=== PATIENT | male | born 1960 | race Caucasian/White ===

== ENCOUNTER 2022-04-22 08:34 | Day surgery (SDC) | payer OTHER, SELFPAY ==
[2022-04-22] VITALS (12 sets, daily range): BP systolic 120–154; BP diastolic 76–95; PULSE 51–80; RESP 16; TEMP 36.2–36.8; O2SAT 96–100; BMI 27.8
[2022-04-22] MEDS: SODIUM CHLORIDE 0.9 % (FLUSH) 10 ML SYRINGE IVF (09:15)
[2022-04-22] MEDS: LACTATED RINGERS 1000 ML 1,000 ML 100 ML IV (09:15)
--- NOTE | 2022-04-22 12:09 | W.ANESCHARGE ---
Anesthesia Charges Start Date/Time Anesthesia Start Date: 04/22/22 Anesthesia Start Time: 11:35 Stop Date/Time Anesthesia Stop Date: 04/22/22 Summary Emergency: No
[2022-04-22] MEDS: ROPIVACAINE 0.5% 30 ML 150 MG INJECTION (12:10)
--- NOTE | 2022-04-22 12:16 | PM.ORPRC ---
Procedure Note Date of procedure: 04/22/22 Procedure: PREOPERATIVE DIAGNOSIS: 1. Right knee medial meniscus tear POSTOPERATIVE DIAGNOSIS: 1. Right knee medial meniscus tear 2. 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 Right knee arthroscopic partial medial menisectomy 2. Right knee arthroscopic chondroplasty patellofemoral compartment and medial compartment SURGEON: Dallas Green M.D. REFINERY OPERATOR HELPER [employer]ACKING [employer]IT: ADRIANA Rajan. Of note, an assistant quality manager was critical for this case to aid in patient positioning, knee manipulation, instrument exchange, and closure. ANESTHESIA: Spinal EBL: 2ml TOURNIQUET: 30 min at 300 torr COMPLICATIONS: None evident INDICATIONS: The patient is a pleasant 62-year-old male who has experienced right knee pain particularly with any twisting or turning. Physical exam was concerning for medial meniscus tear, this was confirmed on MRI. Additionally, attempted nonoperative management has been tried, and failed. Thus, surgery was recommended. FINDINGS: Small effusion upon entering the joint. Complex tearing posterior horn to midbody medial meniscus. Crystal deposits seen within the medial meniscus as well as some the ACL fibers anteriorly. Grade 2-3 chondromalacia broadly to the weight-bearing portion medial femoral condyle. Also grade 2-3 chondromalacia superior pole patella and patella median ridge. Grade 1-2 trochlear groove. Lateral compartment showed relatively healthy articular cartilage. Intact lateral meniscus. ACL was lax and striated suggesting insufficiency. PCL was intact robust. DESCRIPTION OF PROCEDURE: After a thorough discussion of risks, benefits, and alternatives, the patient was brought to the operating room and placed upon the operating table. Induction of anesthesia was undertaken as previously noted. 2g iv Ancef was administered within 1 hr of incision preoperatively. Appropriate time-out was performed identifying proper patient, site, and procedure. The right lower extremity was prepped and draped in the appropriate sterile fashion using ChloraPrep. The limb was exsanguinated and tourniquet inflated. Anterolateral and anteromedial portals were established with an 11 blade, and a diagnostic arthroscopy was performed. This identified the findings as noted above. Following the diagnostic arthroscopy, a partial medial menisectomy was performed with the combination of basket forceps and a motorized shaver. Following this, the meniscus was re-probed and found to be stable. Approximately 20 % of the overall meniscus required resection. At this stage, the shaver was reinserted into the suprapatellar pouch and all remaining meniscal debris was evacuated. Instruments were removed, excess fluid was drained, and closure performed with 4-0 Monocryl with Steri-Strips. Dressings were applied, the tourniquet deflated, and the patient was awoken from anesthesia and transferred to the PACU in stable condition. PLAN: 1. Weightbear as tolerated operative extremity. Crutch / walker ambulation assistance PRN. 2. Ice, acetominophen and/or ibuprofen, and Percocet for pain as needed. 3. Knee range of motion and quad sets/straight leg raise regularly 4. Follow up with PA visit in 1-2 weeks for a wound check and possibly to initiate physical therapy.
--- NOTE | 2022-04-22 12:51 | SUR.PHASEI ---
ok to return to SDS at this time per E[employer]ERN PHILOSOPHY PROFESSOR.
== END 2022-04-22 14:15 | disposition home or self-care (01) ==
PROVIDERS: PCP Family Medicine; Visit Provider Orthopaedic Surgery Sports Medicine
PROC: (CPT 29870; principal; 2022-04-22 10:15)
DX: S83.231A Complex tear of medial meniscus, current injury, right knee, initial encounter (principal); M22.41 Chondromalacia patellae, right knee
CPT/HCPCS: 29881; 01400; 97161; J2250; J2400; J2704; J2795; J3010; J7120

== ENCOUNTER 2022-04-29 15:15 | Outpatient (CLI) | payer OTHER, SELFPAY ==
--- OUTSIDE RECORDS SUMMARY | 2022-04-29 15:17 | XMS_ITS | Clinical Summary ---
:1960 Author Organization [facility] [place] [address] Care Team Providers Name Role Phone Rashawn Perez MD Primary Care Provider [phone] Allergies No known active allergies Medications Medication Sig Dispensed Refills Start Date End Date Status inhalational For home use. 1 Each 0 06/24/2021 Ac tive spacing deviceIndications: Cough sildenafil citrate Take 1 Tablet 30 Tablet 5 06/24/2021 Active (VIAGRA) 50 mg (50 mg) by tabletIndications: mouth once Erectile daily if dysfunction of needed for organic origin Erectile Dysfunction. Take 30min to 4 hours before sexual activity. Max 100mg/24hr albuterol HFA Inhale 2 1 Each 0 06/24/2021 Disco ntinued (PRO-AIR; Puffs by 2 (*Med VENTOLIN; mouth 4 times comple te/Regimen PROVENTIL) 90 daily. comple te/Level of mcg/actuation care c joaquina) inhalerIndications : Cough ferrous sulfate, Take one iron 45 Tablet 3 06/26/2021 04/08/20 2 Discontinued 65 mg elemental, tablet every 2 (*Med tabletIndications: other day c omplete/Regimen Anemia due to comple te/Level of vitamin B12 care adam nge) deficiency, unspecified B12 deficiency type Hospital, Clinic, or Ordered Dose Route Frequency Start Date End D ate Status Other Facility Administered Medication cyanocobalamin 1000 mcg IM Q 4 WEEKS (07/23/2021 08/18/2022 Active (VITAMIN B12) 1,000 DAYS) mcg/mL injection 1,000 mcgIndications: Anemia due to vitamin B12 deficiency, unspecified B12 deficiency type Active Problems Problem Noted Date SBO (small bowel obstruction) 10/07/2018 Exertional chest pain 04/13/2018 FH: skin cancer 12/24/2014 Neck pain, chronic 01/09/2012 Snoring 04/18/2010 Iron deficiency anemia, unspecified 08/17/2008 ED (erectile dysfunction) 04/26/2008 ULCERATIVE COLITIS Colostomy 1978 09/20/2006 Abnormal cardiovascular stress test Resolved Problems Problem Noted Date Resolved Date Anemia, unspecified 09/08/2013 10/07/2018 Low vitamin B12 level 06/11/2013 09/08/2013 Skin tag 04/26/2008 03/19/2022 Encounters Date Type Specialty Care Team Description 04/19/2022 Emergency Rikcie Barbour Nonintractab le headache, unspecified chronicity pattern, unspecified headache type (Primary Dx); MD Chantel Viral URI 04/19/2022 Travel 04/08/2022 Preop Visit Tyron Castañeda MD Preopera tive Exam (Right knee scope. 04/22/22 Dr. Triplett. NFLD) 04/08/2022 Travel 03/31/2022 Nurse/Clinic Staff Immunizat ion/Injection Only 03/31/2022 Travel 03/25/2022 Hospital Encounter Carie Resendiz aleyda pain of right knee; MD Marquis Primary osteoar thritis of right knee 03/25/2022 Travel 03/19/2022 Ancillary Procedure 03/19/2022 Ancillary Procedure 03/19/2022 Office Visit Carie Resendiz Knee Pain/ problem MD Marquis (Right. Has had since July. Had th is issue several years a go after a long drive. G ot a pelaton and it started hurting. Aching on the inside of knee. Pain radiates down i nto the calf. Has swell ing and pain with a lot of walking. Is see ing pt currently. ) 03/19/2022 Travel 03/12/2022 Hospital Encounter Yoon Case in [place], 03/12/2022 Office Visit Yoon Case DO 03/12/2022 Travel 02/24/2022 Nurse/Clinic Staff Immunizat ion/Injection Only 02/24/2022 Travel from Last 3 Months Immunizations Name Administration Dates Next Due COVID-19 vaccine (Pfizer-BioNTcheck24 30mcg/0.3mL) PF, , 10/15/2020 BRENDA Family History Medical History Relation Name Comments Valvular heart disease Father due to rh eumatic fever Heart attack No Family History Relation Name Status Comments Father Social History Tobacco Use Types Packs/Day Years Used Date Never Smoker Smokeless Tobacco: Never Used Tobacco Cessation: Counseling Given: Yes Alcohol Use Standard Drinks/Week Comments Yes 0 (1 standard drink = 0.6 oz pure alcoho l) social Sex Assigned at Date Recorded Not on file COVID-19 Exposure Response Date Recorded In the last 10 days, have you been in contact with No / Unsu re 04/19/2022 8:21 PM CDT someone who was confirmed or suspected to have Coronavirus/COVID-19? Obstetrics History Last Filed Vital Signs Vital Sign Reading Time Taken Comments Blood Pressure 125/76 04/19/2022 9:40 PM CDT Pulse 97 04/19/2022 9:40 PM CDT Temperature 36.6 ??C (97.9 ??F) 04/19/2022 8:27 PM CDT Respiratory Rate 18 04/19/2022 9:40 PM CDT Oxygen Saturation 97% 04/19/2022 9:40 PM CDT Inhaled Oxygen Concentration - - Weight 97.5 kg (215 lb) 04/19/2022 8:27 PM CDT Height 185.4 cm (6' 1) 04/19/2022 8:27 PM CDT Body Mass Index 28.37 04/19/2022 8:27 PM CDT Plan of Treatment Upcoming Encounters Date Type Specialty Care Team Description 05/04/2022 Nurse/Clinic Staff Only Health Maintenance Due Date Last Done Comments Tdap 1969 Zoster (shingles) series for age 0701/25/2008 50+ (1 of 2) Tetanus booster 05/22/2021 05/22/2011 (Declined), 04/18/2010 (Declined) COVID-19 vaccine series (4 - 08/03/2021 06/08/2021, 021, Booster for Pfizer series) 10/15/2020 Influenza for age 50-64 03/19/2022 05/22/2011 (Declined), 04/18/2010 (Declined) BMI (ht and wt on same day) for 06/24/2022 06/24/2021, 08/19, age 18+ 08/14/2019, Additional history exists Depression screening for age 12+ 06/24/2022 06/24/2021, , 10/10/2018, Additional history exists Lipids for age 45-75 03/31/2023 03/31/2018, 12/24/2014, 02/13/2013, Additional history exists Hepatitis C screening for age Completed 12/24/2014 18-79 Procedures Procedure Name Priority Date/Time Associated Diagnosis Comme nts COVID 19 STAT 04/19/2022 9:05 PM Results f or this CDT procedure are i n the results section. COVID 19 COLLECTION STAT 04/19/2022 9:05 PM Re sults for this CDT procedure are i n the results section. MA ECG ROUTINE ECG Routine 04/08/2022 12:00 Preoperative W/LEAST 12 LDS AM CDT cardiovascular W/I&R examination MR KNEE RIGHT WO Routine 03/25/2022 8:49 AM Chronic pain of ri ght Results for this CDT knee procedure are in Primary osteoarthritis the r esults of right knee section. XR KNEE WB 1 VIEW Routine 03/19/2022 9:47 AM Chronic pain of r ight Results for this AP BILATERAL AND 2 CDT knee procedure are in VIEWS RIGHT the results section. XR HIP 1 VIEW W Routine 03/19/2022 9:46 AM Chronic pain of rig ht Results for this PELVIS RIGHT CDT knee procedure are i n the results section. CT ABDOMEN PELVIS Routine 03/12/2022 2:19 PM Flank pain Resu lts for this STONE PROTOCOL WO CDT procedure are in the results section. UA W/ SEDIMENT EXAM STAT 03/12/2022 1:35 PM Flank pain Re sults for this REFLEXED PER CDT procedure are i n CRITERIA the results section. from Last 3 Months Results COVID 19 (04/19/2022 9:05 PM CDT) Analysis Performed At [facility] Time Signature COVID 19 Negative Negative 04/19/2022 [place] [facility] 11:35 PM CDT [facility] Comment: All PCR tests are subject to fa lse negative result due to variability in viral load and collection technique. A n egative result does not rule out a SARS-CoV-2 infection. Clinical correlation required . Specimen Anatomical Collection Method Collection Time Receive d Time (Source) Location / / Volume Laterality Other SPECIMEN FROM Non-Blood / 04/19/2022 9:05 PM 04/19/20 22 9:11 NASAL FOSSAE / Unknown CDT PM CDT Unknown Narrative [facility] - 11:35 PM CDT This test has been authorized by FDA und er an Emergency Use Authorization (EUA). This test is only authorized for the duration of time the declaration that circumstances exist justifying the authorization of th e emergency use of in vitro diagnostic tests for detection of SARS-CoV-2 virus and/or diagnosis of COVID-19 infection under section 564(b)(1) of the Act, 21 U.S.C. 360bbb-3(b) (1), unless the authorization is terminated or revoked sooner. Rickie Barbour MD MICROBIOLOGY Performing Organization Address [facility]/ZIP [facility] Phon e Number [facility] [address] [place] [address] COVID 19 COLLECTION (04/19/2022 9:05 PM CDT) [facility] Method Time Signature TESTING [facility] 04/19/2022 [facility] 9:11 PM CDT [facility] Comment: Specimen submitted to [facility] for testing. Specimen Anatomical Collection Method Collection Time Receive d Time (Source) Location / / Volume Laterality Other SPECIMEN FROM Non-Blood / 04/19/2022 9:05 PM 04/19/20 22 9:10 NASAL FOSSAE / Unknown CDT PM CDT Unknown Rickie Barbour MD SEND OUTS Performing Organization Address [facility]/ZIP [facility] Phon e Number [facility] [address] [place] [address] MA ECG ROUTINE ECG W/LEAST 12 LDS W/I&R (04/08/2022 12:00 AM CDT) Narrative This result has an attachment that is no t available. Tyron Castañeda MD PB - CARDIOVASCULAR SYSTEM S ERVICES MR KNEE RIGHT WO (03/25/2022 8:49 AM CDT) Anatomical Region Laterality Modality KNEE R Magnetic Resonance Specimen (Source) Anatomical Collection Method Collection Time Re ceived Time Location / / Volume Laterality 03/25/2022 11:27 AM CDT Impressions 03/25/2022 11:27 AM CDT 1. Medial meniscus tear. 2. Grade 3 partial-thickness chondral de fect on the lateral aspect of the weight-bearing medial femoral condyle measuring 9 x 10 mm. 3. Mild proximal patellar tendinosis. Dictated by Stuart Torres MD @ 03/25/2022 1 1:27:23 AM (Electronically Signed) Narrative 03/25/2022 11:27 AM CDT For Patients: ??As a result of the [employer] Cures Act, medical imaging exams and procedure report s are released immediately into your [facility] medical record. ??You may view this report before your referring provider. ??If you have questions, please contact your health care provider. HISTORY: Chronic right knee pain. TECHNIQUE: Axial, sagittal and coronal T1, proton d ensity, proton density fat-sat and T2 fat-sat images were obtained of the right knee without contrast administration. COMPARISON: 03/19/2022. FINDINGS: Medial compartment: Medial meniscus: Longitudinal tear possi manolo with horizontal component in medial meniscus body. Articular cartilage: Grade 3 partial-thi ckness cartilage loss along the lateral aspect of the weight-bearing medial femoral condyle measuring 9 x 10 mm. Minimal subchondral bone marrow edema in peripheral aspect of the medial tibial plateau. - Lateral compartment: Lateral meniscus: Intact. Articular cartilage: Intact without evid ence of focal defect or chondral thinning. - Patellofemoral compartment: Articular ca rtilage intact without evidence of focal defect or chondral thinning. - Ligaments: The anterior and posterior cr uciate ligaments are intact. Medial collateral ligament and lateral ligamentous complex are maintained. - Extensor mechanism: Distal quadriceps te ndon and patellar tendon are intact. Mild proximal patellar tendinosis. The medial and lateral patellar restraints are intact. No patellar subluxation or geeta. - Joint space: No joint effusion. - Bones and soft tissues: No acute fractur e or AVN. No evidence of infiltrative bone marrow process. No loculated fluid collection or soft tissue mass. - Procedure Note Stuart Torres MD - 03/25/2022Form atting of this note might be different from the original. For Patients: As a result of the [employer]ury Cures Act, medical imaging exams and procedure reports are released immediately into your electronic medical record. You may view this report before your referring provider. If you have questions, please contact yo health care provider. HISTORY: Chronic right knee pain. TECHNIQUE: Axial, sagittal and coronal T1, proton d ensity, proton density fat-sat and T2 fat-sat images were obtained of the right knee without contrast administration. COMPARISON: 03/19/2022. FINDINGS: Medial compartment: Medial meniscus: Longitudinal tear possi manolo with horizontal component in medial meniscus body. Articular cartilage: Grade 3 partial-thi ckness cartilage loss along the lateral aspect of the weight-bearing medial femoral condyle measuring 9 x 10 mm. Minimal subchondral bone marrow edema in peripheral aspect of the medial tibial plateau. - Lateral compartment: Lateral meniscus: Intact. Articular cartilage: Intact without evid ence of focal defect or chondral thinning. - Patellofemoral compartment: Articular ca rtilage intact without evidence of focal defect or chondral thinning. - Ligaments: The anterior and posterior cr uciate ligaments are intact. Medial collateral ligament and lateral ligamentous complex are maintained. - Extensor mechanism: Distal quadriceps te ndon and patellar tendon are intact. Mild proximal patellar tendinosis. The medial and lateral patellar restraints are intact. No patellar subluxation or geeta. - Joint space: No joint effusion. - Bones and soft tissues: No acute fractur e or AVN. No evidence of infiltrative bone marrow process. No loculated fluid collection or soft tissue mass. - IMPRESSION: 1. Medial meniscus tear. 2. Grade 3 partial-thickness chondral de fect on the lateral aspect of the weight-bearing medial femoral condyle measuring 9 x 10 mm. 3. Mild proximal patellar tendinosis. Dictated by Stuart Torres MD @ 03/25/2022 1 1:27:23 AM (Electronically Signed) Carie Resendiz MD MR XR KNEE WB 1 VIEW AP BILATERAL AND 2 VIEWS RIGHT (03/19/2022 9:47 AM CDT) Anatomical Region Laterality Modality KNEES, KNEE R Computed Radiography Specimen (Source) Anatomical Collection Method Collection Time Re ceived Time Location / / Volume Laterality 03/19/2022 9:47 AM CDT Impressions 03/19/2022 9:59 AM CDT RIGHT KNEE: No fracture or dislocation. Mild degenerative change of the tricompartments with joint space narrowing. No joint effusion.] Mild chondrocalcinosis. LEFT KNEE: No fracture. Mild degenerativ e change of left knee. Narrative 03/19/2022 9:59 AM CDT For Patients: As a result of the Cures Act, medical imaging exams and procedure reports are released immediately into your [facility] medical record. You may view this report before your referring provider. If you have questions, please contact your health care provider. EXAM: XR KNEE WB 1 VIEW AP BILATERAL AND 2 VIEWS RIGHT LOCATION: [facility] DATE/TIME: 03/19/2022 9:47 AM INDICATION: Chronic Pain Of Right Knee COMPARISON: None. Procedure Note Isaias Buckner MD - 03/19/2022Formattin g of this note might be different from the original. For Patients: As a result of the Cures Act, medical imaging exams and procedure reports are released immediately into your electronic medical record. You may view this report before your referring provider. If you have questions, please contact [facility] health care provider. EXAM: XR KNEE WB 1 VIEW AP BILATERAL AND 2 VIEWS RIGHT LOCATION: [facility] DATE/TIME: 03/19/2022 9:47 AM INDICATION: Chronic Pain Of Right Knee COMPARISON: None. IMPRESSION: RIGHT KNEE: No fracture or dislocation. Mild degenerative change of the tricompartments with joint space narrowing. No joint effusion.] Mild chondrocalcinosis. LEFT KNEE: No fracture. Mild degenerativ e change of left knee. Carie Resendiz MD GENERAL IMAGING XR HIP 1 VIEW W PELVIS RIGHT (03/19/2022 9:46 AM CDT) Anatomical Region Laterality Modality HIPS, HIPR, Pelvis Computed Radiography Specimen (Source) Anatomical Collection Method Collection Time Re ceived Time Location / / Volume Laterality 03/19/2022 9:46 AM CDT Impressions 03/19/2022 10:00 AM CDT No fracture or dislocation. Mild degener ative change of bilateral hips. Narrative 03/19/2022 10:00 AM CDT For Patients: As a result of the Cures Act, medical imaging exams and procedure reports are released immediately into your [facility] medical record. You may view this report before your referring provider. If you have questions, please contact your health care provider. EXAM: XR HIP 1 VIEW W PELVIS RIGHT LOCATION: [facility] DATE/TIME: 03/19/2022 9:46 AM INDICATION: Chronic Pain Of Right Knee COMPARISON: None. Procedure Note Isaias Buckner MD - 03/19/2022Formattin g of this note might be different from the original. For Patients: As a result of the Cures Act, medical imaging exams and procedure reports are released immediately into your electronic medical record. You may view this report before your referring provider. If you have questions, please contact [facility] health care provider. EXAM: XR HIP 1 VIEW W PELVIS RIGHT LOCATION: [facility] DATE/TIME: 03/19/2022 9:46 AM INDICATION: Chronic Pain Of Right Knee COMPARISON: None. IMPRESSION: No fracture or dislocation. Mild degener ative change of bilateral hips. Carie Resendiz MD GENERAL IMAGING CT ABDOMEN PELVIS STONE PROTOCOL WO (03/12/2022 2:19 PM CDT) Anatomical Region Laterality Modality Abdomen, Pelvis, AORTA, LIVER, SPLEEN Co mputed Tomography Specimen (Source) Anatomical Collection Method Collection Time Re ceived Time Location / / Volume Laterality 03/12/2022 3:19 PM CDT Impressions 03/12/2022 3:19 PM CDT 1. Unremarkable kidneys ureters and bladder no calculi or hydronephrosis. 2. Proctocolectomy 3. No additional new or acute radiograph ic imaging abnormalities. Please note that all CT scans at this [facility] use dose modulation, iterative reconstruction, and/or weight-based dosing when appropriate to reduce radiation dose to as low as reasonably achievable. Dictated by Ignacio Carrington MD @ 03/12/2022 3:19:31 PM (Electronically Signed) Narrative 03/12/2022 3:19 PM CDT For Patients: ??As a result of the Cures Act, medical imaging exams and procedure report s are released immediately into your [facility] medical record. ??You may view this report before your referring provider. ??If you have questions, please contact your health care provider. INDICATION : Flank pain TECHNIQUE : CT Scan of the abdomen and pelvis. No intravenous contrast COMPARISON : 10/07/2018 FINDINGS: Kidneys ureters and bladder: The kidneys are normal size shape and po sition. The urinary bladder appears normal. No c alculi. Prostate: Enlarged. Lymph nodes: No pathologic enlargement. GI tract: Proctocolectomy and a pelvic r eservoir with ostomy right lower quadrant. No signs for obstruction. Miscellaneous abdomen: Unremarkable live r spleen adrenal glands pancreas. No calcified gallstones or suspicious lymph node enlargement. Lung bases: Clear. Skeletal: Moderate lumbar disc degenerat ion L4-L5 and L5-S1. Procedure Note Ignacio Carrington MD - 03/12/2022For matting of this note might be different from the original. For Patients: As a result of the ntury Cures Act, medical imaging exams and procedure reports are released immediately into your electronic medical record. You may view this report before your referring provider. If you have questions, please contact [facility] health care provider. INDICATION : Flank pain TECHNIQUE : CT Scan of the abdomen and pelvis. No intravenous contrast COMPARISON : 10/07/2018 FINDINGS: Kidneys ureters and bladder: The kidneys are normal size shape and po sition. The urinary bladder appears normal. No c alculi. Prostate: Enlarged. Lymph nodes: No pathologic enlargement. GI tract: Proctocolectomy and a pelvic r eservoir with ostomy right lower quadrant. No signs for obstruction. Miscellaneous abdomen: Unremarkable live r spleen adrenal glands pancreas. No calcified gallstones or suspicious lymph node enlargement. Lung bases: Clear. Skeletal: Moderate lumbar disc degenerat ion L4-L5 and L5-S1. IMPRESSION: 1. Unremarkable kidneys ureters and [place] no calculi or hydronephrosis. 2. Proctocolectomy 3. No additional new or acute radiograph ic imaging abnormalities. Please note that all CT scans at this [facility] use dose modulation, iterative reconstruction, and/or weight-based dosing when appropriate to reduce radiation dose to as low as reasonably achievable. Dictated by Ignacio Carrington MD @ 03/12/2022 3:19:31 PM (Electronically Signed) Yoon Case DO CT (ABNORMAL) UA W/ SEDIMENT EXAM REFLEXED PER CRITERIA (UA w/ reflex micro if positive) [26732.2] (03/12/2022 1:35 PM CDT) [facility] Method Time Signature COLOR Yellow Yellow Color 03/12/2022 [place] 1:[address] [facility] CLARITY Clear Clear 03/12/2022 [facility] Clarity 1:[address] [facility] SPECIFIC >=1.030 (A) 1.010, 03/12/2022 [facility] GRAVITY,URINE 1.015, 1:46 PM [facility] 1.020, 1.025 [facility] PH,URINE 5.5 6.0, 7.0, 03/12/2022 [place] 8.0, 5.5, 1:46 PM [facility] 6.5, 7.5, CENTER 8.5 LABORATORY UROBILINOGEN, Normal Normal EU/dl 03/12/2022 [facility] QUALITATIVE 1:[address] [facility] PROTEIN, Negative Negative 03/12/2022 [facility] URINE mg/dL 1:[address] [facility] GLUCOSE, Negative Negative 03/12/2022 [facility] URINE mg/dL 1:[address] [facility] KETONES,URINE Negative Negative 03/12/2022 [facility] mg/dL 1:[address] [facility] BILIRUBIN,URI Negative Negative 03/12/2022 [facility] NE 1:[address] [facility] OCCULT Negative Negative 03/12/2022 [facility] BLOOD,URINE 1:[address] [facility] NITRITE Negative Negative 03/12/2022 [facility] 1:[address] [facility] LEUKOCYTE Negative Negative 03/12/2022 [facility] ESTERASE 1:[address] [facility] Specimen Anatomical Collection Method Collection Time Receive d Time (Source) Location / / Volume Laterality Urine URINE SPECIMEN / Non-Blood / 03/12/2022 1:35 PM 03/12 1:40 Unknown Unknown CDT [facility] Karlene Zelaya NP URINE Performing Organization Address City/State/ZIP Code Phon e Number [facility] [address] [place] [address] from Last 3 Months Insurance Payer Benefit Plan / Subscriber ID Effective Dates Phone Addre ss Type Group PREFERRED ONE PREFERRED ONE [id number] 2021-[place] [id number] [place] [id number] Advance Directives Latest Code Status on File Code Status Date Activated Date Inactivated Comments Full Code 10/07/2018 5:25 PM 10/09/2018 2:38 PM Full Code 04/13/2018 7:47 AM 04/13/2018 3:26 PM Care Teams [employer] Relationship Specialty Start Date End Date Rashawn Perez MD PCP - General Family Practice 10/07/[address] [place] [address] [place] [id number]
--- NOTE | 2022-04-29 16:00 | CRLHL7_ITS ---
For Patients: As a result of the [employer] Cures Act, medical imaging exams and procedure reports are released immediately into your electronic medical record. You may view this report before your referring provider. If you have questions, please contact your health care provider. INDICATION: Right knee swelling and calf pain. Status post right knee arthroscopy on 04/22/2022. COMPARISON: None. TECHNIQUE: A compression venous ultrasound exam was performed of the right lower extremity using cano-scale imaging, color Doppler and spectral Doppler analysis. FINDINGS: Sonographic imaging of the right lower extremity demonstrates normal compressibility and color Doppler venous blood flow within the common femoral vein, deep femoral vein, and the proximal greater saphenous vein. Within the thigh, the femoral vein is patent and compressible. At a lower level, the popliteal, peroneal, and posterior tibial veins also show normal compressibility and color Doppler venous blood flow. Limited imaging of the contralateral groin demonstrates a normal spectral waveform and color Doppler venous blood flow within the left common femoral vein. IMPRESSION: Negative for acute DVT in the right lower extremity. Dictated by Dariela Parks MD @ 04/29/2022 4:55:42 PM (Electronically Signed)
== END 2022-04-29 15:16 | disposition home or self-care (01) ==
PROVIDERS: PCP Family Medicine; Visit Provider Physician Assistant Surgical
DX: M79.661 Pain in right lower leg (principal); R22.41 Localized swelling, mass and lump, right lower limb
CPT/HCPCS: 93971

== ENCOUNTER 2023-08-23 08:57 | Inpatient (IN) | payer OTHER, SELFPAY ==
[2023-08-23] VITALS (25 sets, daily range): BP systolic 92–119; BP diastolic 61–86; PULSE 90–124; RESP 14–20; TEMP 36.7–38.6; O2SAT 89–99; BMI 28.6; BMI 27.1
--- OUTSIDE RECORDS SUMMARY | 2023-08-23 09:53 | XMS_ITS | Clinical Summary ---
Author Name Unknown Organization [facility] Address [place], [place] [address] Care Team Providers Care Climatologist Name Role Phone Keven Odom MD Primary Care Provider Allergies No known active allergies Medications Medication Sig Dispensed Refills Start Date End Date Status sildenafil citrate (VIAGRA) 50 mg tabletIndications:E rectile dysfunction of organic origin Take 1 Tablet (50 mg) by mouth once daily if needed for Erectile Dysfunction. Take 30min to 4 hours before sexual activity. Max 100mg/24hr 30 Tablet 5 10/01/2022 Active levalbuterol (XOPENEX HFA) 45 mcg/actuation inhalerIndications: Cough, unspecified type Inhale 2 Puffs by mouth every 4 hours if needed for Shortness Of Breath. 15 g 0 03/01/2023 Active cholecalciferol, vitamin D3, (VITAMIN D3 ORAL) Take 1 Tablet by mouth once daily. 0 Active diclofenac topical (VOLTAREN) 1 % gelIndications:Neck pain, chronic Apply 2 g topically to affected area(s) four times daily. 2 g 0 08/08/2023 Active famotidine (PEPCID) 40 mg tabletIndications:D OE (dyspnea on exertion),Chest tightness Take 1 Tablet (40 mg) by mouth at bedtime. 30 Tablet 1 08/16/2023 Active ciprofloxacin HCl (CIPRO) 500 mg tabletIndications:P ouchitis (HC) Take 1 Tablet (500 mg) by mouth two times daily for 10 days. 20 Tablet 0 08/11/2023 08/21/2023 metroNIDAZOLE (FLAGYL) 500 mg tabletIndications:P ouchitis (HC) Take 1 Tablet (500 mg) by mouth two times daily for 10 days. 20 Tablet 0 08/11/2023 08/21/2023 Hospital, Clinic, or Other Facility Administered Medication Ordered Dose Route Frequency Start Date End Date Status cyanocobalamin (VITAMIN B12) 1,000 mcg/mL injection 1,000 mcgIndications:Anemi a due to vitamin B12 deficiency, unspecified B12 deficiency type 1000 mcg IM Q 4 WEEKS (28 DAYS) 08/27/2022 08/25/2023 Active Active Problems Problem Noted Date Diagnosed Date Bloody stool 08/07/2023 Diarrhea 08/07/2023 SBO (small bowel obstruction) 10/07/2018 Exertional chest pain 04/13/2018 FH: skin cancer 12/24/2014 Neck pain, chronic 01/09/2012 Snoring 04/18/2010 Iron deficiency anemia, unspecified 08/17/2008 ED (erectile dysfunction) 04/26/2008 ULCERATIVE COLITIS Colostomy 1978 09/20/2006 Abnormal cardiovascular stress test Resolved Problems Problem Noted Date Diagnosed Date Resolved Date Anemia, unspecified 09/08/2013 10/08/19 19 Low vitamin B12 level 06/11/20132013 Skin tag 04/26/2008 03/19/2022 Encounters Date Type Department Care Team Description 08/19/2023 Telephone [facility] [address] [place] [address] Keven Odom MD 08/19/2023 Telephone [facility] [address] [place] [address] Keven Odom MD 08/16/2023 1:22 PM [employer] - 08/16/2023 11:59 PM [employer] Hospital Encounter [facility] [address] [place] [address] Keven Odom MD GAN (dyspnea on exertion); Chest tightness 08/16/2023 10:10 AM TE[employer]NIC[employer] Telemedicine [facility] [address] [place] [address] Keven Odom MD Hospital F/U 08/16/2023 Travel 08/15/2023 Travel 08/11/2023 3:52 AM [employer] - 08/11/2023 8:12 AM [employer] Emergency [facility] [address] [place] [address] Al Lai MD Pouchitis (HC) (Primary Dx); Abdominal pain, unspecified abdominal location; Ulcerative colitis with complication, unspecified location (HC); Diarrhea, unspecified type; KIM (acute kidney injury) (HC) Discharge Disposition: Home Self Care 08/11/2023 Travel 08/09/2023 Patient Outreach [address] [address] Hafsa Ramirez RN Primary RN Care Management (SBO); Hospital F/U (08/08/2023) 08/06/2023 7:08 PM [employer]NIC[employer] - 08/08/2023 4:40 PM [employer]NIC[employer] Hospital Encounter [facility] [address] [place] [address] Aristides Garza PA Connelly, MD Marilee Daniels Jennifer Rose F, MD Bhattarai, Jaya, XUAN Zaldivar, Anna Arias, Hansa Sheikh NP Partial small bowel obstruction (HC) (Primary Dx); Nausea and vomiting, unspecified vomiting type; Near syncope; Disorder of stoma; Cough, unspecified type; Elevated C-reactive protein (CRP); Occult blood positive stool; SBO (small bowel obstruction) (HC); Neck pain, chronic Discharge Disposition: Home Self Care 08/06/2023 Travel 08/03/2023 5:10 PM [employer] Ancillary Procedure [address] [phone] 08/03/2023 Travel 08/01/2023 3:15 PM [employer] Office Visit [facility] [address] [place] [phone] Adriana Fernandes NP Cough (Patient presents to urgent care today C/O coughing onset 07/29/2023. Took a home COVID-19 test at 1200 noon today that turned out negative. ); Stomach Ache (C/O having a blotting feeling in his abdomin.); Tired 08/01/2023 Travel 07/20/2023 Telephone [facility] [address] [facility] [place] [address] Keven Odom MD Results 07/06/2023 8:15 AM [employer] Nurse/Clinic Staff Only [address] [address] Injection (Medication) (B12) 07/06/2023 Travel 07/02/2023 7:19 AM TE[employer] - 07/02/2023 11:59 PM [employer] Hospital Encounter [facility] [address] [place] [address] Keven Odom MD GAN (dyspnea on exertion) 07/02/2023 Travel 06/30/2023 Telephone [facility] [address] [place] [address] Nusrat oNel RN Appointment Reminder 06/15/2023 10:44 AM [employer] - 06/15/2023 1:02 PM [employer] Emergency [facility] [address] [place] [address] Rickie Barbour MD Vasovagal episode (Primary Dx) Discharge Disposition: Home Self Care 06/15/2023 10:00 AM [employer] - 06/15/2023 10:43 AM TE[employer]NIC[employer] Hospital Encounter [facility] [address] [place] [address] Keven Odom MD Chest tightness; GAN (dyspnea on exertion) 06/15/2023 Travel 06/08/2023 8:15 AM [employer] Nurse/Clinic Staff Only [address] [place] [address] Immunization/Injec tion (Vitamin B12, Chris) 06/08/2023 Travel 05/28/2023 10:55 AM TECHNIC[employer] Ancillary Procedure [address] [address] 05/28/2023 10:10 AM TE[employer]NIC[employer] Office Visit [facility] [address] [place] [address] Keven Odom MD chest tightness with exertion 05/28/2023 Nurse Triage [facility] [address] [place] [address] Keven Odom MD Chest Pain/problem 05/28/2023 Travel from Last 3 Months Immunizations Name Administration Dates Next Due COVID-19 vaccine ([employer] 30mcg/0.3mL) MD JUAN RV 06/08/2021,11/05/2020,10/15/2020 Family History Medical History Relation Name Comments Valvular heart disease Father due t o rheumatic fever Heart attack No Family History Relation Name Status Comments Father Social History Tobacco Use Types Packs/Day Years Used Date Smoking Tobacco: Never Smokeless Tobacco: Never Tobacco Cessation:Counseling Given: Yes Alcohol Use Standard Drinks/Week Comments Yes 0 (1 standard drink = 0.6 oz pur e alcohol) social PHQ-2 Answer Date Recorded PHQ-2 TOTAL SCORE 0 10/01/2022 Social Connections Answer Date Recorded Frequency of Communication with Friends and Fami ly 0 05/28/2023 Financial Resource Strain Answer Date R ecorded Difficulty of Paying Living Expenses 3 05/28/2023 Difficulty of Paying Living Expenses Not on file 05/28/2023 Food Insecurity Answer Date Recorded Worried About Running Out of Food in the Last Ye ar 1 05/28/2023 Transportation Needs Answer Date Record ed Lack of Transportation (Medical) 1 05/28/2023 Housing Stability Answer Date Recorded Unable to Pay for Housing in the Last Year 1 05/28/2023 Sex and Gender Information Value Date Recorded Sex Assigned at Not on file Gender Identity Not on file Sexual Orientation Not on file Obstetrics History Last Filed Vital Signs Vital Sign Reading Time Taken Comments Blood Pressure 116/79 08/11/2023 8:00 AM TE[employer]IC[employer] Pulse 94 08/11/2023 8:08 AM [employer] Temperature 36.7 ??C (98 ??F) 08/11/2023 3:53 AM [employer] Respiratory Rate 18 08/11/2023 3:53 AM [employer] Oxygen Saturation 97% 08/11/2023 8:08 AM TE[employer]NIC[employer] Inhaled Oxygen Concentration - - Weight 95.5 kg (210 lb 8.6 oz) 08/11/2023 3:53 A M [employer] Height 185.4 cm (6' 1) 08/11/2023 4:05 AM [employer] Body Mass Index 27.78 08/11/2023 3:53 AM [employer] Plan of Treatment Upcoming Encounters Date Type Department Care Team (Late st Contact Info) Description 09/13/2023 3:00 PM TE[employer] Office Visit [facility] [address] [place] [address] Marsha Hernández MD [address] [place] [address] Health Maintenance Due Date Last Done Comments Pneumococcal series for age 65+ (1 of 2 - PCV) 01/25/1964 Tdap 1969 HIV for age 15-65 1973 Zoster (shingles) series for age 50+ (1 of 2) 01/25/2008 Tetanus booster 05/22/2021 05/22/2011 (Decl ined), 04/18/2010 (Declined) COVID-19 vaccine series (2022- season) 2023 05/28/2022, 06/08/2021, 11/05/2020, Additional history exists Influenza for age 65+ 03/19/2023 BMI (ht and wt on same day) for age 18+ 10/02/2023 10/01/2022, 06/24/2021, 08/31/2019, Additional history exists Depression screening for age 12+ 10/02/2023 10/01/2022, 06/24/2021, 10/14/2018, Additional history exists Lipids for age 45-75 10/02/2027 10/01/2022, 03/31/2018, 12/24/2014, Additional history exists Hepatitis C screening for ag e 18-79 Completed 12/24/2014 Procedures Procedure Name Priority Date/Time Associated Diagnosis Comments CT CHEST PE STUDY STAT 08/16/2023 1:2 7 PM TE[employer] GAN (dyspnea on exertion) Chest tightness STOOL PATHOGEN MULTIPLEX PCR PANEL STAT 08/11/2023 5:34 AM TECHNICIAN [employer] ISTAT CHEM 8 CLINIC ONLY AND [facility] Timed 08/11/2023 5:27 AM TE[employer]NIC[employer] RED CELL MORPHOLOGY STAT 08/11/2023 5 :16 AM [employer]NIC[employer] PLATELET ESTIMATE STAT 08/11/2023 5:1 6 AM [employer] MANUAL DIFFERENTIAL STAT 08/11/2023 5 :16 AM [employer] CBC WITH AUTO DIFFERENTIAL STAT 08/11/2023 5:16 AM TE[employer] LIPASE STAT 08/11/2023 5:16 AM [employer] HEPATIC FUNCTION PANEL STAT 5:16 AM TECHNIC[employer] CBC WITH AUTO DIFFERENTIAL STAT 08/11/2023 5:[address] [employer] [address] ABDOMEN PELVIS W STAT 08/11/2023 5 :04 AM TE[employer]NIC[employer] SCAN-CARDIAC STRIP 08/08/2023 8: 18 AM [employer] HEMOGLOBIN Early AM 08/08/2023 5:52 AM TE[employer] XR SMALL BOWEL WATER SOLUBLE STAT 08/07/2023 5:39 PM TE[employer]NIC[employer] HEMOGLOBIN Timed 08/07/2023 12:34 PM TECHNIC[employer] SCAN-CARDIAC STRIP 08/07/2023 8: 30 AM TECHNIC[employer] FOLIC ACID Timed 08/07/2023 6:03 AM TE[employer] HEMOGLOBIN Timed 08/07/2023 6:03 AM TE[employer]NIC[employer] CREATININE Early AM 08/07/2023 6:03 AM TE[employer] SODIUM Early AM 08/07/2023 6:03 AM TECHNIC[employer] SCAN-CARDIAC STRIP 08/07/2023 2: 15 AM TECHNICIAN [employer] CLOSTRIDIOIDES DIFFICILE TOXIN PCR Today 08/07/2023 1:45 AM TECHNICIAN [employer] HEMOGLOBIN Timed 08/07/2023 1:05 AM TECHNIC[employer] XR ABDOMEN 1 VIEW PORTABLE STAT 08/06/2023 11:59 PM TECHNIC[employer] HEMOGLOBIN STAT 08/06/2023 11:24 PM TE[employer] COVID/FLU/RSV PANEL Today 08/06/2023 1 1:10 PM TECHNIC[employer] BLOOD CULTURE Today 08/06/2023 10:29 PM TECHNIC[employer] BLOOD CULTURE Today 08/06/2023 10:22 PM [employer] VITAMIN B12 MARGOT 08/06/2023 9:46 PM [employer] TROPONIN T (HS) ONE TIME Timed 08/06/2023 9:46 PM TECHNIC[employer] XR CHEST 1 VIEW PORTABLE STAT 08/06/2023 9:01 PM [employer] OCCULT BLOOD IFOBT STOOL Today 08/06/2023 8:[address] [employer] [address] ABDOMEN PELVIS W STAT 08/06/2023 8 :35 PM TE[employer] EKG 12 LEAD STAT 08/06/2023 7:53 PM [employer] TYPE & SCREEN STAT 08/06/2023 7:38 PM TECHNIC[employer] RED CELL MORPHOLOGY STAT 08/06/2023 7 :38 PM [employer] PLATELET ESTIMATE STAT 08/06/2023 7:3 8 PM [employer]CHN[employer] MANUAL DIFFERENTIAL STAT 08/06/2023 7 :38 PM TECHNIC[employer] MAGNESIUM MARGOT 08/06/2023 7:38 PM TECHNIC[employer] TROPONIN T (HS) ACUTE W/2HR REFLEX MARGOT 08/06/2023 7:38 PM [employer] C-REACTIVE PROTEIN STAT 08/06/2023 7: 38 PM [employer] CBC WITH AUTO DIFFERENTIAL STAT 08/06/2023 7:38 PM TECHN[employer] PROTIME-INR STAT 08/06/2023 7:38 PM TECHNIC[employer] BASIC METABOLIC PANEL STAT 08/06/2023 7:38 PM TECHNIC[employer] CBC WITH AUTO DIFFERENTIAL STAT 08/06/2023 7:38 PM TECHN[employer] XR CHEST 2 VIEWS PA AND LATERAL STAT 08/03/2023 5:04 PM [employer] Chest congestion COVID-19 MOLECULAR STAT 08/01/2023 4: 10 PM TE[employer] Upper respiratory tract infection, unspecified type ECHO STRESS EXRCSE W CNTRST W COLOR W LTD DOPPLER Routine 07/02/2023 1:57 PM TECHNICIAN [employer] GAN (dyspnea on exertion) STRESS TEST EXERCISE DONE WITH STRESS ECHO Routine 07/02/2023 9:07 AM TECHNICIAN [employer] GAN (dyspnea on exertion) SCAN-STRESS TEST 07/02/2023 12:0 0 AM TECHNICIAN [employer] EKG 12 LEAD STAT 06/15/2023 12:09 PM TECHNIC[employer] RED CELL MORPHOLOGY STAT 06/15/2023 1 2:02 PM TECHNICIAN [employer] PLATELET ESTIMATE STAT 06/15/2023 12: 02 PM TECHNICIAN [employer] MANUAL DIFFERENTIAL STAT 06/15/2023 1 2:02 PM TECHNIC[employer] CBC WITH AUTO DIFFERENTIAL STAT 06/15/2023 12:02 PM TECHNIC[employer] TROPONIN T (HS) ONE TIME STAT 06/15/2023 12:02 PM TECHNIC[employer] COMP METABOLIC PANEL STAT 06/15/2023 12:02 PM TECHNIC[employer] CBC WITH AUTO DIFFERENTIAL STAT 06/15/2023 12:02 PM TECHNIC[employer] COMPLETE PULMONARY FUNCTION TEST WITH BRONCHODILATOR MARGOT 06/15/2023 10:00 AM TECHNIC[employer] Chest tightness GAN (dyspnea on exertion) XR CHEST 2 VIEWS PA AND LATERAL STAT 05/28/2023 11:00 AM TECHNICIAN [employer] Chest tightness from Last 3 Months Results * CT CHEST PE STUDY (08/16/2023 1:27 PM TECHNICIAN [employer]) Anatomical Region Laterality Modality CHEST, THORAX, HEART Computed To mography 08/16/2023 2:15 PM TE[employer]NIC[employer] Impressions 08/16/2023 2:15 PM TECHNIC[employer] 1. No evidence of pulmonary embolus. 2. Mild coronary atherosclerosis. 3. Minimal discoid atelectasis right lower lobe. Please note that all CT scans at this facility use dose modulation, iterative reconstruction, and/or weight-based dosing when appropriate to reduce radiation dose to as low as reasonably achievable. Dictated by Stuart Napier MD @ 08/16/2023 2:15:13 PM (Electronically Signed) Narrative 08/16/2023 2:15 PM [employer] For Patients: ??As a result of the Century Cures Act, medical imaging exams and procedure reports are released immediately into your electronic medical record. ??You may view this report before your referring provider. ??If you have questions, please contact your health care provider. INDICATION: Dyspnea on exertion, chest tightness TECHNIQUE: CT chest PE was acquired with 100 cc Omnipaque 350 IV contrast. COMPARISON: Chest CT 04/29/2018 FINDINGS: Heart and vasculature: Contrast opacification of the pulmonary arterial tree is adequate. No sign of pulmonary embolism. Thoracic aorta is normal in caliber. Mild coronary atherosclerosis. No pericardial effusion. Lungs and pleural: No pleural effusion or pneumothorax. Minimal discoid atelectasis right lower lobe. Lymph nodes/mediastinum: Sub centimeter mediastinal lymph nodes. Chest wall: No masses. Upper abdomen: Normal. Bones: Unremarkable for age. Procedure Note Stuart Napier MD - 08/16/2023 For Patients: As a result of the Cures Act, medical imagingexams and procedure reports are released immediately into your electronicmedical record. You may view this report before your referring provider.If you have questions, please contact your health care provider. INDICATION: Dyspnea on exertion, chest tightness TECHNIQUE: CT chest PE was acquired with 100 cc Omnipaque 350 IV contrast. COMPARISON: Chest CT 04/29/2018 FINDINGS: Heart and vasculature: Contrast opacification of the pulmonary arterialtree is adequate. No sign of pulmonary embolism. Thoracic aorta is normalin caliber. Mild coronary atherosclerosis. No pericardial effusion. Lungs and pleural: No pleural effusion or pneumothorax. Minimal discoidatelectasis right lower lobe. Lymph nodes/mediastinum: Sub centimeter mediastinal lymph nodes. Chest wall: No masses. Upper abdomen: Normal. Bones: Unremarkable for age. IMPRESSION: 1. No evidence of pulmonary embolus. 2. Mild coronary atherosclerosis. 3. Minimal discoid atelectasis right lower lobe. Please note that all CT scans at this facility use dose modulation,iterative reconstruction, and/or weight-based dosing when appropriate toreduce radiation dose to as low as reasonably achievable. Dictated by Stuart Napier MD @ 08/16/2023 2:15:13 PM (Electronically Signed) Keven Odom MD CT * STOOL PATHOGEN MULTIPLEX PCR PANEL (08/11/2023 5:34 AM TECHNICIAN [employer]) Campylobacter NOT Detected NOT Detected 08/12/2023 10:37 AM TECHNICIAN [employer]COMM[employer] [facility] [employer] [facility] Salmonella NOT Detected NOT Detected 08/12/2023 10:37 AM TECHNICIAN [employer]COMM[employer]ICATION [employer]S [facility] Shigella NOT Detected NOT Detected 08/12/2023 10:37 AM TECHNICIAN [employer]COMM[employer]ICATION [employer]S [facility] [employer] [facility] Vibrio NOT Detected NOT Detected 08/12/2023 10:37 AM TECHNICIAN [employer] [facility] Yersinia Enterocolitica NOT Detected NOT Detected 08/12/2023 10:37 AM [facility] Shiga Toxin 1 NOT Detected NOT Detected 08/12/2023 10:37 AM [facility] Shiga Toxin 2 NOT Detected NOT Detected 08/12/2023 10:37 AM [facility] Norovirus NOT Detected NOT Detected 08/12/2023 10:37 AM [facility] Rotavirus NOT Detected NOT Detected 08/12/2023 10:37 AM [facility] Stool STOOL SPECIMEN / Unknown Non-Blood / Unknown 08/11/2023 5:34 AM [facility] 08/11/2023 6:[address] [facility] - 08/12/2023 10:37 AM [facility] This test is a Culture Independent Diagnostic Test (CIDT) therefore isolates are not available for susceptibility testing. ??Antibiotic treatment is often contraindicated and may be detrimental in cases of enteric infections, thus routine susceptibility testing is not recommended. Al Lai MD MICROBIOLOGY [facility] [address] [place] [address], * (ABNORMAL) ISTAT CHEM 8 (SELECTED SITES ONLY) (08/11/2023 5:27 AM [facility]) SODIUM, POCT 130(L) 135 - 145 mmol/L 08/11/2023 5:40 AM [facility] POTASSIUM, POCT 3.5 3.5 - 5.0 mmol/L 08/11/2023 5:40 AM [facility] CHLORIDE, POCT 95(L) 98 - 107 mmol/L 08/11/2023 5:40 AM [facility] CO2,TOTAL, POCT 22 21 - 31 mmol/L 08/11/2023 5:40 AM [facility] ANION GAP, POCT 18 5 - 18 5:40 AM [facility] GLUCOSE, POCT 108(H) 70 - 99 mg/dL 08/11/2023 5:40 AM [facility] IONIZED CALCIUM, POCT 1.05(L) 1.15 - 1.27 mmol/L 08/11/2023 5:40 AM [facility] BUN, POCT 19 8 - 25 mg/dL 08/11/2023 5:40 AM [facility] CREATININE, POCT 1.40(H) 0.57 - 1.11 mg/dL 08/11/2023 5:40 AM [facility] Comment:Caution: Patients ta danny Hydroxyurea have falsely increased iStat Creatinine results. Verify creatinine results ordering a Creatinine (13564.2) BUN/CREAT RATIO, POCT 14 10 - 20 08/11/2023 5:40 AM [facility] eGFR 56(L) >90 mL/min/1.7 3m2 08/11/2023 5:40 AM [facility] Comment:As of 2021, eG FR is calculated by the CKD-EPI creatinine equation without race adjustment. eGFR can be influenced by muscle mass, exercise, and diet. The reported eGFR is an estimation only and is only applicable if the renal function is stable. Blood BLOOD SPECIMEN / Unknown 08/11/2023 5:27 AM [employer] 08/11/2023 5:40 AM [facility] Al Lai MD CHEMISTRY [facility] [address] [place], [place] [id number] * (ABNORMAL) CBC WITH AUTO DIFFERENTIAL (08/11/2023 5:16 AM [facility]) Only the most recent of3 resultswithin the time period is included. WHITE BLOOD COUNT 7.3 4.5 - 11.0 thou/cu mm 08/11/2023 5:57 AM [facility] RED BLOOD COUNT 4.25(L) 4.30 - 5.90 mil/cu mm 08/11/2023 5:57 AM [facility] HEMOGLOBIN 11.0(L) 13.5 - 17.5 g/dL 08/11/2023 5:57 AM [facility] HEMATOCRIT 33.8(L) 37.0 - 53.0 % 08/11/2023 5:57 AM [facility] MCV 80 80 - 100 fL 08/11/2023 5:57 AM [facility] MCH 25.9(L) 26.0 - 34.0 pg 08/11/2023 5:57 AM [facility] MCHC 32.5 32.0 - 36.0 g/dL 08/11/2023 5:57 AM [facility] RDW 15.2 11.5 - 15.5 % 08/11/2023 5:57 AM [facility] PLATELET COUNT 247 140 - 440 thou/cu mm 08/11/2023 5:57 AM [facility] MPV 9.9 6.5 - 11.0 fL 08/11/2023 5:57 AM [facility] Blood BLOOD SPECIMEN / Unknown Capillary / Unknown 08/11/2023 5:16 AM [employer] [employer] 08/11/2023 5:20 AM [employer] Al Lai MD HEMATOLOGY [facility] [address] [place] [id number] * (ABNORMAL) RED CELL MORPHOLOGY (08/11/2023 5:16 AM TE[employer]) Only the most recent of3 resultswithin the time period is included. Pathologist Vinayak LEVYCYTANGEL Few 08/11/2023 5:57 AM [facility] RBC COMMENT Present(A) RBC morphology appears normal, RBC morphology within normal limits for newborns. 08/11/2023 5:57 AM [facility] LARGE PLATELETS Present 5:57 AM [facility] Blood BLOOD SPECIMEN / Unknown Capillary / Unknown 08/11/2023 5:16 AM [employer] 08/11/2023 5:20 AM [employer] Al Lai MD HEMATOLOGY [facility] [address] [place] [address] * PLATELET ESTIMATE (08/11/2023 5:16 AM TECHNICIAN [employer]) Only the most recent of3 resultswithin the time period is included. PLATELET ESTIMATE Adequate Adequate, No estimate 08/11/2023 5:57 AM [facility] Blood BLOOD SPECIMEN / Unknown Capillary / Unknown 08/11/2023 5:16 AM TECHNICIAN TELECOMMUNICATION SYSTEMS 08/11/2023 5:20 AM TECHNICIAN TELECOMMUNICATION SYSTEMS Al Lai MD HEMATOLOGY [facility] [address] [place] [address] * (ABNORMAL) MANUAL DIFFERENTIAL (08/11/2023 5:16 AM TECHNICIAN TELECOMMUNICATION SYSTEMS) Only the most recent of3 resultswithin the time period is included. Pathologist [facility] % NEUTROPHILS 74.0 % 08/11/2023 5:57 AM [facility] % LYMPHOCYTES 12.0 % 08/11/2023 5:57 AM [facility] % MONOCYTES 14.0 % 08/11/2023 5:57 AM [facility] % EOSINOPHILS 0.0 % 08/11/2023 5:57 AM [facility] % BASOPHILS 0.0 % 08/11/2023 5:57 AM [facility] NEUTROPHILS ABSOLUTE 5.4 1.7 - 7.0 thou/cu mm 08/11/2023 5:57 AM [facility] LYMPHOCYTES ABSOLUTE 0.9 0.9 - 2.9 thou/cu mm 08/11/2023 5:57 AM [facility] MONOCYTES ABSOLUTE 1.0(H) <0.9 thou/cu mm 08/11/2023 5:57 AM [facility] EOSINOPHILS ABSOLUTE 0.0 <0.5 thou/cu mm 08/11/2023 5:57 AM [facility] BASOPHILS ABSOLUTE 0.0 <0.3 thou/cu mm 08/11/2023 5:57 AM [facility] Blood BLOOD SPECIMEN / Unknown Capillary / Unknown 08/11/2023 5:16 AM TECHNICIAN TELECOMMUNICATION SYSTEMS 08/11/2023 5:20 AM TECHNICIAN TELECOMMUNICATION SYSTEMS Al Lai MD HEMATOLOGY Performing Organization Address [facility]/ZIP Co de Phone Number [facility] [address] [place] [address] * LIPASE (08/11/2023 5:16 AM TECHNICIAN TELECOMMUNICATION SYSTEMS) LIPASE 18.9 13.0 - 60.0 IU/L 08/11/2023 6:12 AM [facility] Blood BLOOD SPECIMEN / Unknown Capillary / Unknown 08/11/2023 5:16 AM TECHNICIAN TELECOMMUNICATION SYSTEMS 08/11/2023 5:20 AM TECHNICIAN TELECOMMUNICATION SYSTEMS Al Lai MD CHEMISTRY Performing Organization Address [facility] Co de Phone Number [facility] [address] [place] [address] * (ABNORMAL) HEPATIC FUNCTION PANEL (08/11/2023 5:16 AM TECHNICIAN TELECOMMUNICATION SYSTEMS) ALBUMIN 3.2(L) 4.0 - 4.9 g/dL 08/11/2023 6:12 AM [facility] PROTEIN,TOTAL 6.7 6.0 - 8.0 g/dL 08/11/2023 6:12 AM [facility] BILIRUBIN,TOTAL 0.8 0.0 - 1.2 mg/dL 08/11/2023 6:12 AM [facility] BILIRUBIN,DIRECT 0.3 0.0 - 0.3 mg/dL 08/11/2023 6:12 AM [facility] BILIRUBIN,INDIRE CT 0.5 0.2 - 0.8 mg/dL 08/11/2023 6:12 AM [facility] ALK PHOSPHATASE 87 40 - 129 IU/L 08/11/2023 6:12 AM [facility] ALT (SGPT) 20 10 - 50 IU/L 08/11/2023 6:12 AM TECHNICIAN TELECOMMUNICATION SYSTEMS [facility] AST (SGOT) 25 10 - 50 IU/L 08/11/2023 6:12 AM TECHNICIAN TELECOMMUNICATION SYSTEMS [facility] Blood BLOOD SPECIMEN / Unknown Capillary / Unknown 08/11/2023 5:16 AM TECHNICIAN TELECOMMUNICATION SYSTEMS 08/11/2023 5:20 AM TECHNICIAN TELECOMMUNICATION SYSTEMS Al Lai MD CHEMISTRY [facility] [address] [place] [address] * CT ABDOMEN PELVIS W (08/11/2023 5:04 AM TECHNICIAN TELECOMMUNICATION SYSTEMS) Only the most recent of2 resultswithin the time period is included. Anatomical Region Laterality Modality Abdomen, Pelvis, AORTA, LIVER, SPLEEN Computed Tomography 08/11/2023 5:24 AM TECHNICIAN TELECOMMUNICATION SYSTEMS Impressions 08/11/2023 5:24 AM TECHNICIAN TELECOMMUNICATION SYSTEMS There is mild inflammatory appearing wall thickening of the pelvic reservoir. The more proximal small bowel loops are mildly dilated. Dilatation is overall slightly increased compared to the previous exam but there are no discrete transition points or definitive bowel obstruction. Please note that all CT scans at this facility use dose modulation, iterative reconstruction, and/or weight-based dosing when appropriate to reduce radiation dose to as low as reasonably achievable. Dictated by Marlys Cobb MD @ 08/11/2023 5:24:51 AM (Electronically Signed) Narrative 08/11/2023 5:24 AM TECHNICIAN TELECOMMUNICATION SYSTEMS For Patients: ??As a result of the Century Cures Act, medical imaging exams and procedure reports are released immediately into your electronic medical record. ??You may view this report before your referring provider. ??If you have questions, please contact your health care provider. INDICATION: Abdominal pain COMPARISON: 08/06/2023 TECHNIQUE: CT of the abdomen and pelvis after the administration of intravenous contrast. Multiplanar axial, coronal, and sagittal reformats were reconstructed. Contrast: x mL Omnipaque 300 intravenously. Oral contrast was not administered. FINDINGS: Lung bases: Normal. Liver: Normal. No masses. Normal vasculature. Gallbladder and biliary tree: Normal gallbladder. No biliary duct dilation. Pancreas: Normal. Spleen: Normal. Normal size. Adrenal glands: Normal. No nodules. Kidneys and bladder: Normal size and position. No cyst or mass. No calculi. No urinary tract dilation. The urinary bladder is normal. GI: Total colectomy. Pelvic reservoir and ileostomy. The reservoir is mildly distended with an air-fluid level. The reservoir and the immediately proximal bowel wall is mildly thickened in a pattern similar to the previous exam. There are some mildly dilated small bowel loops without any discrete transition points. The small bowel away from the reservoir has a normal bowel wall thickness and normal enhancement. No perforation or abscess. No ischemia. Vessels: Aorta and major branches, including the mesenteric vessels: Patent. Normal caliber. No atherosclerotic plaques. IVC and tributaries: Normal. Mesenteric and portal veins: Normal. Peritoneum: No free fluid. Lymph nodes: Reactive appearing mesenteric lymph nodes are similar to the previous exam.. Pelvis: Physiologic appearance of the reproductive organs. Bones: No fractures. No focal bone lesions. Normal for age. Abdominal wall: No hernias. Procedure Note Marlys Cobb MD - 08/11/2023 For Patients: As a result of the Cures Act, medical imagingexams and procedure reports are released immediately into your electronicmedical record. You may view this report before your referring provider.If you have questions, please contact your health care provider. INDICATION: Abdominal pain COMPARISON: 08/06/2023 TECHNIQUE: CT of the abdomen and pelvis after the administration of intravenouscontrast. Multiplanar axial, coronal, and sagittal reformats werereconstructed. Contrast: x mL Omnipaque 300 intravenously. Oral contrast was notadministered. FINDINGS: Lung bases: Normal. Liver: Normal. No masses. Normal vasculature. Gallbladder and biliary tree: Normal gallbladder. No biliary ductdilation. Pancreas: Normal. Spleen: Normal. Normal size. Adrenal glands: Normal. No nodules. Kidneys and bladder: Normal size and position. No cyst or mass. Nocalculi. No urinary tract dilation. The urinary bladder is normal. GI: Total colectomy. Pelvic reservoir and ileostomy. The reservoir ismildly distended with an air-fluid level. The reservoir and theimmediately proximal bowel wall is mildly thickened in a pattern similarto the previous exam. There are some mildly dilated small bowel loopswithout any discrete transition points. The small bowel away from thereservoir has a normal bowel wall thickness and normal enhancement. Noperforation or abscess. No ischemia. Vessels: Aorta and major branches, including the mesenteric vessels: Patent. Normalcaliber. No atherosclerotic plaques. IVC and tributaries: Normal. Mesenteric and portal veins: Normal. Peritoneum: No free fluid. Lymph nodes: Reactive appearing mesenteric lymph nodes are similar to theprevious exam.. Pelvis: Physiologic appearance of the reproductive organs. Bones: No fractures. No focal bone lesions. Normal for age. Abdominal wall: No hernias. IMPRESSION: There is mild inflammatory appearing wall thickening of the pelvicreservoir. The more proximal small bowel loops are mildly dilated.Dilatation is overall slightly increased compared to the previous exam butthere are no discrete transition points or definitive bowel obstruction. Please note that all CT scans at this facility use dose modulation,iterative reconstruction, and/or weight-based dosing when appropriate toreduce radiation dose to as low as reasonably achievable. Dictated by Marlys Cobb MD @ 08/11/2023 5:24:51 AM (Electronically Signed) Al Lai MD CT * SCAN-CARDIAC STRIP (08/08/2023 8:18 AM TECHNICIAN TELECOMMUNICATION SYSTEMS) Scanner OTHER * (ABNORMAL) HEMOGLOBIN (08/08/2023 5:52 AM TECHNICIAN TELECOMMUNICATION SYSTEMS) Only the most recent of5 resultswithin the time period is included. HEMOGLOBIN 10.9(L) 13.5 - 17.5 g/dL 08/08/2023 6:15 AM TECHNICIAN TELECOMMUNICATION SYSTEMS [facility] MCV 83 80 - 100 fL 08/08/2023 6:15 AM TECHNICIAN TELECOMMUNICATION SYSTEMS [facility] Blood BLOOD SPECIMEN / Unknown Venipuncture / Unknown 08/08/2023 5:52 AM TECHNICIAN TELECOMMUNICATION SYSTEMS 08/08/2023 6:09 AM TECHNICIAN TELECOMMUNICATION SYSTEMS Dina Hnut MD HEMATOLO GY [facility] [address] [place] [address] * XR SMALL BOWEL WATER SOLUBLE (08/07/2023 5:39 PM TECHNICIAN TELECOMMUNICATION SYSTEMS) Anatomical Region Laterality Modality SMALL BOWEL Computed Radiogr aphy 08/07/2023 5:50 PM TECHNICIAN TELECOMMUNICATION SYSTEMS Narrative 08/07/2023 5:50 PM TECHNICIAN TELECOMMUNICATION SYSTEMS For Patients: ??As a result of the Cures Act, medical imaging exams and procedure reports are released immediately into your electronic medical record. ??You may view this report before your referring provider. ??If you have questions, please contact your health care provider. Indication: Suspected small-bowel obstruction. Technique: Abdomen 3 view. Oral contrast given. Comparison: August 06, 2023. Findings/Impression: Bowel: Oral contrast is seen throughout nondilated small bowel, and within the prominent reservoir. No definite small bowel obstruction. Recommend correlation with physical examination/clinical history to evaluate for passage of contrast into the right lower quadrant ostomy. Soft tissues: No sign of free air. ??No sign of soft tissue mass. ??No suspicious calcifications. Bones: Unremarkable for age. Dictated by Ryan Martinez MD @ 08/07/2023 5:50:36 PM (Electronically Signed) Procedure Note Ryan Martinez MD - 08/07/2023 For Patients: As a result of the Cures Act, medical imagingexams and procedure reports are released immediately into your electronicmedical record. You may view this report before your referring provider.If you have questions, please contact your health care provider. Indication: Suspected small-bowel obstruction. Technique: Abdomen 3 view. Oral contrast given. Comparison: August 06, 2023. Findings/Impression: Bowel: Oral contrast is seen throughout nondilated small bowel, and withinthe prominent reservoir. No definite small bowel obstruction. Recommendcorrelation with physical examination/clinical history to evaluate forpassage of contrast into the right lower quadrant ostomy. Soft tissues: No sign of free air. No sign of soft tissue mass. Nosuspicious calcifications. Bones: Unremarkable for age. Dictated by Ryan Martinez MD @ 08/07/2023 5:50:36 PM (Electronically Signed) Dina Hunt MD [facility] * SCAN-CARDIAC STRIP (08/07/2023 8:30 AM TECHNICIAN TELECOMMUNICATION SYSTEMS) Scanner OTHER * (ABNORMAL) SODIUM (08/07/2023 6:03 AM TECHNICIAN TELECOMMUNICATION SYSTEMS) SODIUM 134(L) 136 - 145 mmol/L 08/07/2023 6:51 AM TECHNICIAN TELECOMMUNICATION SYSTEMS [facility] Blood BLOOD SPECIMEN / Unknown Butterfly / Unknown 08/07/2023 6:03 AM TECHNICIAN TELECOMMUNICATION SYSTEMS 08/07/2023 6:23 AM TECHNICIAN TELECOMMUNICATION SYSTEMS Lucio GOVEA CHEMISTRY Performing Organization Address City/[facility]/ZIP Co de Phone Number [facility] [address] [place] [address] * (ABNORMAL) CREATININE (08/07/2023 6:03 AM TECHNICIAN TELECOMMUNICATION SYSTEMS) Pathologist [facility] eGFR 89(L) >90 mL/min/1.7 3m2 08/07/2023 6:51 AM TECHNICIAN TELECOMMUNICATION SYSTEMS [facility] Comment:As of 2021, eG FR is calculated by the CKD-EPI creatinine equation without race adjustment. ??eGFR can be influenced by muscle mass, exercise, and diet. ??The reported eGFR is an estimation only and is only applicable if the renal function is stable. CREATININE 0.95 0.70 - 1.20 mg/dL 08/07/2023 6:51 AM TECHNICIAN TELECOMMUNICATION SYSTEMS [facility] Blood BLOOD SPECIMEN / Unknown Butterfly / Unknown 08/07/2023 6:03 AM TECHNICIAN TELECOMMUNICATION SYSTEMS 08/07/2023 6:23 AM TECHNICIAN TELECOMMUNICATION SYSTEMS Lucio GOVEA CHEMISTRY [facility] [address] [place] [address] * FOLIC ACID (08/07/2023 6:03 AM TECHNICIAN TELECOMMUNICATION SYSTEMS) Pathologist [facility] FOLIC ACID 12.2 4.6 - 34.8 ng/mL 08/07/2023 2:56 PM TECHNICIAN TELECOMMUNICATION SYSTEMS [facility] Blood BLOOD SPECIMEN / Unknown Butterfly / Unknown 08/07/2023 6:03 AM TECHNICIAN TELECOMMUNICATION SYSTEMS 08/07/2023 6:23 AM TECHNICIAN TELECOMMUNICATION SYSTEMS Narrative [facility] - 08/07/2023 2:56 PM TECHNICIAN TELECOMMUNICATION SYSTEMS Biotin supplements may cause clinically significant interference for this test assay. ??If interference is suspected, it is strongly recommended that biotin is discontinued for at least one week prior to retesting. Lucio GOVEA CHEMISTRY Performing Organization Address [facility] Co de Phone Number [facility] [address] [place] [id number], [place] * SCAN-CARDIAC STRIP (08/07/2023 2:15 AM TECHNICIAN TELECOMMUNICATION SYSTEMS) Scanner OTHER * CLOSTRIDIOIDES DIFFICILE TOXIN PCR (08/07/2023 1:45 AM TECHNICIAN TELECOMMUNICATION SYSTEMS) CLOSTRIDIUM DIFFICILE PCR Negative 08/07/2023 4:07 PM TECHNICIAN TELECOMMUNICATION SYSTEMS [facility] PRESUMPTIVE NAP1 STRAIN Negative 08/07/2023 4:07 PM TECHNICIAN TELECOMMUNICATION SYSTEMS [facility] Stool STOOL SPECIMEN / Unknown Non-Blood / Unknown 08/07/2023 1:45 AM TECHNICIAN TELECOMMUNICATION SYSTEMS 08/07/2023 1:52 AM TECHNICIAN TELECOMMUNICATION SYSTEMS Narrative [facility] - 08/07/2023 4:07 PM TECHNICIAN TELECOMMUNICATION SYSTEMS The NAP1 (027 or BI) strain is a hypervirulent strain. Detection may be useful for epidemiological purposes. Lucio GOVEA MICROBIOLOGY Performing Organization Address [facility] Co de Phone Number [facility] [address] [place] [phone], [place] * XR ABDOMEN 1 VIEW PORTABLE (08/06/2023 11:59 PM TECHNICIAN TELECOMMUNICATION SYSTEMS) Anatomical Region Laterality Modality Abdomen Digital Radiogra phy 08/07/2023 12:3 2 AM TECHNICIAN TELECOMMUNICATION SYSTEMS Impressions 08/07/2023 12:32 AM TECHNICIAN TELECOMMUNICATION SYSTEMS NG tube tip projects near the gastroesophageal junction the side port at the distal esophagus, recommend advancement. Dictated by Sumanth Weeks MD @ 08/07/2023 12:32:20 AM (Electronically Signed) Narrative 08/07/2023 12:32 AM TECHNICIAN TELECOMMUNICATION SYSTEMS For Patients: ??As a result of the Cures Act, medical imaging exams and procedure reports are released immediately into your electronic medical record. ??You may view this report before your referring provider. ??If you have questions, please contact your health care provider. INDICATION: Tube placement. TECHNIQUE: Abdomen 1 view. COMPARISON: Same day CT abdomen and pelvis. Procedure Note Sumanth Weeks MD - 08/07/2023 For Patients: As a result of the Cures Act, medical imagingexams and procedure reports are released immediately into your electronicmedical record. You may view this report before your referring provider.If you have questions, please contact your health care provider. INDICATION: Tube placement. TECHNIQUE: Abdomen 1 view. COMPARISON: Same day CT abdomen and pelvis. IMPRESSION: NG tube tip projects near the gastroesophageal junction the side port atthe distal esophagus, recommend advancement. Dictated by Sumanth Weeks MD @ 08/07/2023 12:32:20 AM (Electronically Signed) Aristides FLOR[facility] * (ABNORMAL) COVID/FLU/RSV PANEL (08/06/2023 11:10 PM TECHNICIAN TELECOMMUNICATION SYSTEMS) COVID 19 [facility] Negative Negative 08/07/2023 3:55 PM TECHNICIAN TELECOMMUNICATION SYSTEMS [facility] Comment:All PCR tests are rodríguez bject to false negative result due to variability in viral load and collection technique. A negative result does not rule out a SARS-CoV-2 infection. Clinical correlation required. INFLUENZA A PCR Positive(A) 08/07/19 24 3:55 PM TECHNICIAN TELECOMMUNICATION SYSTEMS [facility] INFLUENZA B PCR Negative 4 3:55 PM TECHNICIAN TELECOMMUNICATION SYSTEMS [facility] Respiratory Syncytial Virus Negative 08/07/2023 3:55 PM TECHNICIAN TELECOMMUNICATION SYSTEMS [facility] Nasopharyngeal NASOPHARYNGEAL SWAB / Unknown Non-Blood / Unknown 08/06/2023 11:10 PM TECHNICIAN TELECOMMUNICATION SYSTEMS 08/06/2023 11:13 PM TECHNICIAN TELECOMMUNICATION SYSTEMS Narrative [facility] - 08/07/2023 3:55 PM TECHNICIAN TELECOMMUNICATION SYSTEMS This test has been authorized by FDA under an Emergency Use Authorization (EUA). This test is only authorized for the duration of time the declaration that circumstances exist justifying the authorization of the emergency use of in vitro diagnostic tests for detection of SARS-CoV-2 virus and/or diagnosis of COVID-19 infection under section 564(b)(1) of the Act, 21 U.S.C. 360bbb-3(b) (1), unless the authorization is terminated or revoked sooner. Richard Hall MD MICROBIOLOGY Performing Organization Address City/[facility]/ZIP Co de Phone Number [facility] [address] [place], [place] [address] * BLOOD CULTURE (08/06/2023 10:29 PM TECHNICIAN TELECOMMUNICATION SYSTEMS) Only the most recent of2 resultswithin the time period is included. CULTURE No Growth. 08/12/2023 12:49 PM TECHNICIAN TELECOMMUNICATION SYSTEMS [facility] Blood BLOOD SPECIMEN / Unknown Butterfly / Unknown 08/06/2023 10:29 PM TECHNICIAN TELECOMMUNICATION SYSTEMS 08/06/2023 10:40 PM TECHNICIAN TELECOMMUNICATION SYSTEMS Aristides FLORES MICROBIOLOG Y Performing Organization Address City/[facility]/ZIP Co de Phone Number [facility] [address] [place] [id number] * TROPONIN T (HS) ONE TIME (08/06/2023 9:46 PM TECHNICIAN TELECOMMUNICATION SYSTEMS) Only the most recent of2 resultswithin the time period is included. TROPONIN T HS 11 6-15 ng/L ng/L 08/06/2023 10:09 PM TECHNICIAN TELECOMMUNICATION SYSTEMS [facility] Blood BLOOD SPECIMEN / Unknown Venipuncture / Unknown 08/06/2023 9:46 PM TECHNICIAN TELECOMMUNICATION SYSTEMS 08/06/2023 9:50 PM TECHNICIAN TELECOMMUNICATION SYSTEMS Aristides FLORES CHEMISTRY [facility] [address] [place] [address] * VITAMIN B12 (08/06/2023 9:46 PM TECHNICIAN TELECOMMUNICATION SYSTEMS) VITAMIN B12 568 232 - 1,245 pg/mL 08/07/2023 3:49 PM TECHNICIAN TELECOMMUNICATION SYSTEMS [facility] Blood BLOOD SPECIMEN / Unknown Venipuncture / Unknown 08/06/2023 9:46 PM TECHNICIAN TELECOMMUNICATION SYSTEMS 08/06/2023 9:50 PM TECHNICIAN TELECOMMUNICATION SYSTEMS Narrative [facility] - 08/07/2023 3:49 PM TECHNICIAN TELECOMMUNICATION SYSTEMS Biotin supplements may cause clinically significant interference for this test assay. ??If interference is suspected, it is strongly recommended that biotin is discontinued for at least one week prior to retesting. Lucio GOVEA CHEMISTRY Performing Organization Address [facility] Co de Phone Number [facility] [address] [address], * XR CHEST 1 VIEW PORTABLE (08/06/2023 9:01 PM TECHNICIAN TELECOMMUNICATION SYSTEMS) Anatomical Region Laterality Modality HEART, THORAX, CHEST Digital Rad iography 08/06/2023 9:09 PM TECHNICIAN TELECOMMUNICATION SYSTEMS Impressions 08/06/2023 9:09 PM TECHNICIAN TELECOMMUNICATION SYSTEMS No acute pulmonary process. Dictated by Sumanth Weeks MD @ 08/06/2023 9:09:31 PM (Electronically Signed) Narrative 08/06/2023 9:09 PM TECHNICIAN TELECOMMUNICATION SYSTEMS For Patients: ??As a result of the 21st Century Cures Act, medical imaging exams and procedure reports are released immediately into your electronic medical record. ??You may view this report before your referring provider. ??If you have questions, please contact your health care provider. INDICATION: Nausea, vomiting, syncope, weakness, new LBBB. TECHNIQUE: Chest 1 view. COMPARISON: 08/03/2023. FINDINGS: Cardiovascular and mediastinum: Heart size and vasculature are normal in caliber and appearance. Lungs and pleural spaces: Lungs are clear. No sign of infiltrate or mass. No sign of pleural effusion. No pneumothorax. ?? Bones and soft tissues: No significant findings. Procedure Note Sumanth Weeks MD - 08/06/2023 For Patients: As a result of the Century Cures Act, medical imagingexams and procedure reports are released immediately into your electronicmedical record. You may view this report before your referring provider.If you have questions, please contact your health care provider. INDICATION: Nausea, vomiting, syncope, weakness, new LBBB. TECHNIQUE: Chest 1 view. COMPARISON: 08/03/2023. FINDINGS: Cardiovascular and mediastinum: Heart size and vasculature are normal incaliber and appearance. Lungs and pleural spaces: Lungs are clear. No sign of infiltrate or mass.No sign of pleural effusion. No pneumothorax. Bones and soft tissues: No significant findings. IMPRESSION: No acute pulmonary process. Dictated by Sumanth Weeks MD @ 08/06/2023 9:09:31 PM (Electronically Signed) Aristides [facility] * (ABNORMAL) OCCULT BLOOD IFOBT STOOL (08/06/2023 8:44 PM TECHNICIAN TELECOMMUNICATION SYSTEMS) STOOL BLOOD ,IFOBT Positive(A ) Negative 08/06/2023 8:55 PM TECHNICIAN TELECOMMUNICATION SYSTEMS [facility] Stool STOOL SPECIMEN / Unknown Non-Blood / Unknown 08/06/2023 8:44 PM TECHNICIAN TELECOMMUNICATION SYSTEMS 08/06/2023 8:49 PM TECHNICIAN TELECOMMUNICATION SYSTEMS Aristides FLORES LABORATORY Performing Organization Address City/State/[facility] Co de Phone Number [facility] [address] [place] [address] * EKG 12 LEAD (08/06/2023 7:53 PM TECHNICIAN TELECOMMUNICATION SYSTEMS) Only the most recent of2 resultswithin the time period is included. Interpretation Normal sinus rhythm Possible Left atrial enlargement Left axis deviation Left bundle branch block Abnormal ECG When compared with ECG of 15-JUN-2023 12:09, Left bundle branch block has replaced Right bundle branch block Borderline criteria for Lateral infarct are no longer Present N stemi ??07/02/2024 hx of LBBB BEYOND NOW Ventricular Rate 94 BPM BEYOND NOW Atrial Rate 94 BPM BEYOND NOW P-R Interval 152 ms BEYOND NOW QRS Duration 148 ms BEYOND NOW QT 402 ms BEYOND NOW QTc 502 ms BEYOND NOW P [place] 42 degrees BEYOND NOW R [place] -44 degrees BEYOND NOW T [place] 95 degrees BEYOND NOW 08/06/2023 7:53 PM TECHNICIAN TELECOMMUNICATION SYSTEMS 08/06/2023 9:38 PM TECHNICIAN TELECOMMUNICATION SYSTEMS Aristides FLORES EKG ORD BEYOND NOW [place], [place] * TROPONIN T (HS) ACUTE W/2HR REFLEX (08/06/2023 7:38 PM TECHNICIAN TELECOMMUNICATION SYSTEMS) TROPONIN T HS 11 6-15 ng/L ng/L 08/06/2023 8:19 PM TECHNICIAN TELECOMMUNICATION SYSTEMS [facility] Blood BLOOD SPECIMEN / Unknown Butterfly / Unknown 08/06/2023 7:38 PM TECHNICIAN TELECOMMUNICATION SYSTEMS 08/06/2023 7:47 PM TECHNICIAN TELECOMMUNICATION SYSTEMS Narrative [facility] - 08/06/2023 8:19 PM TECHNICIAN TELECOMMUNICATION SYSTEMS hs-cTnT (Elecsys Troponin T Gen 5) concentration (s) above the sex-specific 99th percentile (16 ng/L or greater for males or 11 ng/L or greater for females) are indicative of myocardial injury. If initial hs-cTnT <=100 ng/L at presentation, a 0h/2h ABSOLUTE (ng/L) delta change (rising or falling) of >=10 ng/L suggests a significant change, whereas a 0h/2h delta change <=3 ng/L suggests no significant change. If initial hs-cTnT >100 ng/L at presentation, a 0h/2h/ RELATIVE (percent, %) delta change of 20% is suggested to distinguish patients with acute vs. chronic myocardial injury. There are multiple etiologies that can cause hs-cTnT increases above the 99th percentile (myocardial injury) other than acute myocardial infarction. Clinical context and careful clinical evaluation are critical for diagnosis and risk-stratification. The diagnosis of acute myocardial infarction requires a rising and/or falling pattern in hs-cTnT concentrations with at least one value above the sex-specific 99th percentile PLUS at least one of the following clinical criteria: ischemic symptoms, new or presumed new significant ST-T wave changes or new LBBB, development of pathological Q waves, imaging evidence of new loss of viable myocardium or new regional wall motion abnormality, or identification of intracoronary atherothrombosis or an acute angiographic culprit on coronary angiography. In appropriate low-risk patients with a non-ischemic electrocardiogram without active chest pain with a symptom onset >3-hours without recurrence, a single initial hs-cTnT<6 ng/L identifies patient with a very low risk in emergency department patient population. Aristides FLORES CHEMISTRY Performing Organization Address City/[facility] Co de Phone Number [facility] [address] [place] [address] * TYPE AND SCREEN ONLY (08/06/2023 7:38 PM TECHNICIAN TELECOMMUNICATION SYSTEMS) [facility] ABORH AB Rh Positive 08/06/2023 8:37 PM TECHNICIAN TELECOMMUNICATION SYSTEMS [facility] BLOOD BANK ANTIBODY SCREEN Negative Negative 08/06/2023 8:37 PM [facility] BLOOD BANK SPECIMEN EXPIRATION DATE/TIME 08/09/23 23:59 08/06/2023 8:37 PM TECHNICIAN TELECOMMUNICATION SYSTEMS [facility] BLOOD BANK Blood BLOOD SPECIMEN / Unknown Butterfly / Unknown 08/06/2023 7:38 PM TECHNICIAN TELECOMMUNICATION SYSTEMS 08/06/2023 7:48 PM TECHNICIAN TELECOMMUNICATION SYSTEMS Aristides FLORES BLOOD BANK Performing Organization Address [facility] Co de Phone Number [facility] BLOOD BANK [address] [place] [address] * (ABNORMAL) C-REACTIVE PROTEIN (08/06/2023 7:38 PM TECHNICIAN TELECOMMUNICATION SYSTEMS) [facility] C-REACTIVE PROTEIN 5.8(H) <0.5 mg/dL 08/06/2023 8:07 PM TECHNICIAN TELECOMMUNICATION SYSTEMS [facility] Blood BLOOD SPECIMEN / Unknown Butterfly / Unknown 08/06/2023 7:38 PM TECHNICIAN TELECOMMUNICATION SYSTEMS 08/06/2023 7:47 PM TECHNICIAN TELECOMMUNICATION SYSTEMS Aristides FLORES CHEMISTRY Performing Organization Address City/[facility]/ZIP Co de Phone Number [facility] [address] [place] [address] * (ABNORMAL) PROTIME-INR (08/06/2023 7:38 PM TECHNICIAN TELECOMMUNICATION SYSTEMS) INR 1.4(H) <1.3 08/06/2023 7:59 PM TECHNICIAN TELECOMMUNICATION SYSTEMS [facility] PROTIME 15.9(H) 10.3 - 12.3 sec 08/06/2023 7:59 PM TECHNICIAN TELECOMMUNICATION SYSTEMS [facility] Blood BLOOD SPECIMEN / Unknown Butterfly / Unknown 08/06/2023 7:38 PM TECHNICIAN TELECOMMUNICATION SYSTEMS 08/06/2023 7:48 PM TECHNICIAN TELECOMMUNICATION SYSTEMS Narrative [facility] - 08/06/2023 7:59 PM TECHNICIAN TELECOMMUNICATION SYSTEMS ?Therapeutic Range 2.0-3.0 for most anticoagulated patients 2.5-3.5 or 4.0 for high risk patients The INR is only used for patients on stable oral anticoagulant therapy. It makes no significant contribution to the diagnosis or treatment of patients whose Protime is prolonged for other reasons. INR results are increased when heparin levels exceed 1.0 U/mL, which corresponds to an aPTT >125 seconds if the patient is on UFH. Aristides FLORES HEMATOLOGY Performing Organization Address City/State/[facility] Co de Phone Number [facility] [address] [place] [address] * MAGNESIUM (08/06/2023 7:38 PM TECHNICIAN TELECOMMUNICATION SYSTEMS) [facility] MAGNESIUM 1.9 1.6 - 2.4 mg/dL 08/06/2023 8:39 PM TECHNICIAN TELECOMMUNICATION SYSTEMS [facility] Blood BLOOD SPECIMEN / Unknown Butterfly / Unknown 08/06/2023 7:38 PM TECHNICIAN TELECOMMUNICATION SYSTEMS 08/06/2023 7:47 PM TECHNICIAN TELECOMMUNICATION SYSTEMS Aristides FLORES CHEMISTRY [facility] [address] [place] [address] * (ABNORMAL) BASIC METABOLIC PANEL (08/06/2023 7:38 PM [facility]) SODIUM 134(L) 136 - 145 mmol/L 08/06/2023 8:07 PM [facility] POTASSIUM 4.2 3.5 - 5.1 mmol/L 08/06/2023 8:07 PM [facility] CHLORIDE 102 98 - 107 mmol/L 08/06/2023 8:07 PM [facility] CO2,TOTAL 21(L) 22 - 29 mmol/L 08/06/2023 8:07 PM [facility] ANION GAP 11 5 - 18 08/06/2023 8:07 PM [facility] GLUCOSE 150(H) 70 - 99 mg/dL 08/06/2023 8:07 PM [facility] CALCIUM 9.3 8.8 - 10.2 mg/dL 08/06/2023 8:07 PM [facility] BUN 26(H) 8 - 23 mg/dL 08/06/2023 8:07 PM [facility] CREATININE 0.98 0.70 - 1.20 mg/dL 08/06/2023 8:07 PM [facility] BUN/CREAT RATIO 27(H) 10 - 20 8:07 PM [facility] eGFR 86(L) >90 mL/min/1.7 3m2 08/06/2023 8:07 PM [facility] Comment:As of 2021, eG FR is calculated by the CKD-EPI creatinine equation without race adjustment. ??eGFR can be influenced by muscle mass, exercise, and diet. ??The reported eGFR is an estimation only and is only applicable if the renal function is stable. Blood BLOOD SPECIMEN / Unknown Butterfly / Unknown 08/06/2023 7:38 PM TECHNICIAN TELECOMMUNICATION SYSTEMS 08/06/2023 7:47 PM [facility] Aristides FLORES CHEMISTRY [facility] [address] [place] [address] * XR CHEST 2 VIEWS PA AND LATERAL (08/03/2023 5:04 PM TECHNICIAN TELECOMMUNICATION SYSTEMS) Only the most recent of2 resultswithin the time period is included. Anatomical Region Laterality Modality CHEST, THORAX, Lung, HEART Compu luz Radiography 08/03/2023 5:57 PM TECHNICIAN TELECOMMUNICATION SYSTEMS Impressions 08/03/2023 5:57 PM TECHNICIAN TELECOMMUNICATION SYSTEMS No acute cardiopulmonary process. Dictated by Prashanth Murillo MD @ 08/03/2023 5:57:25 PM (Electronically Signed) Narrative 08/03/2023 5:57 PM TECHNICIAN TELECOMMUNICATION SYSTEMS For Patients: ??As a result of the Cures Act, medical imaging exams and procedure reports are released immediately into your electronic medical record. ??You may view this report before your referring provider. ??If you have questions, please contact your health care provider. INDICATION: Chest congestion TECHNIQUE: Chest 2 views. COMPARISON: Chest radiograph on May 28, 2023 FINDINGS: Cardiovascular and mediastinum: ??Heart size and vasculature are normal in caliber and appearance. ?? Lungs and pleural spaces: ??Lungs are clear. ??No sign of infiltrate or mass. ??No sign of pleural effusion. ??No pneumothorax. ?? Bones and soft tissues: No acute fracture or malalignment. Minimal thoracic spondylosis. Procedure Note Prashanth Murillo MD - 08/03/2023 For Patients: As a result of the Cures Act, medical imagingexams and procedure reports are released immediately into your electronicmedical record. You may view this report before your referring provider.If you have questions, please contact your health care provider. INDICATION: Chest congestion TECHNIQUE: Chest 2 views. COMPARISON: Chest radiograph on May 28, 2023 FINDINGS: Cardiovascular and mediastinum: Heart size and vasculature are normal incaliber and appearance. Lungs and pleural spaces: Lungs are clear. No sign of infiltrate ormass. No sign of pleural effusion. No pneumothorax. Bones and soft tissues: No acute fracture or malalignment. Minimalthoracic spondylosis. IMPRESSION: No acute cardiopulmonary process. Dictated by Prashanth Murillo MD @ 08/03/2023 5:57:25 PM (Electronically Signed) Keven Odom MD GENERAL IMAGIN G * COVID-19 MOLECULAR (08/01/2023 4:10 PM TECHNICIAN TELECOMMUNICATION SYSTEMS) COVID 19 AVILA MOLECULAR Negative Negative 08/02/2023 5:11 PM TECHNICIAN TELECOMMUNICATION SYSTEMS [facility]- [facility]ATORY TESTING LABORATORY [facility] 08/02/2023 5:11 PM TECHNICIAN TELECOMMUNICATION SYSTEMS [facility] Comment:Specimen submitted t o [facility] for testing. Other SPECIMEN FROM NASAL FOSSAE / Unknown Non-Blood / Unknown 08/01/2023 4:10 PM TECHNICIAN TELECOMMUNICATION SYSTEMS 08/01/2023 4:23 PM TECHNICIAN TELECOMMUNICATION SYSTEMS Narrative [facility] - 08/02/2023 5:11 PM TECHNICIAN TELECOMMUNICATION SYSTEMS All PCR tests are subject to false negative result due to variability in viral load and collection technique. A negative result does not rule out a SARS-CoV-2 infection. Clinical correlation required. This test has been authorized by FDA under an Emergency Use Authorization (EUA). This test is only authorized for the duration of time the declaration that circumstances exist justifying the authorization of the emergency use of in vitro diagnostic tests for detection of SARS-CoV-2 virus and/or diagnosis of COVID-19 infection under section 564(b)(1) of the Act, 21 U.S.C. 360bbb-3(b) (1), unless the authorization is terminated or revoked sooner. Adriana Fernandes NP MICROBIOLOGY [facility] [address] [place] [address], * ECHO STRESS EXRCSE W CNTRST W COLOR W LTD DOPPLER (07/02/2023 1:57 PM TECHNICIAN TELECOMMUNICATION SYSTEMS) AORTIC VALVE MEAN PG 4 mmHg PEAK TR VELOCITY 2.0 m/s LVEDD 4.8 cm EJECTION FRACTION 55 - 60% Anatomical Region Laterality Modality Ultrasound, Othe r, Other 07/02/2023 7:50 AM TECHNICIAN TELECOMMUNICATION SYSTEMS Narrative 07/02/2023 3:20 PM TECHNICIAN TELECOMMUNICATION SYSTEMS STRESS ECHOCARDIOGRAM MARQUIS LONGO ?Accession#: ?? [id number] : ?1960 63 years Study Date: ?? 07/02/2023 7:50:28 AM Gender: M ? BP: ? 135/85 mmHg Height: 185.00 cm ? BSA: ?2.22 m? ? ? Weight: 98.00 kg ?Tech: ? MBW ?Referring MD: KEVEN ODOM Site: ? [facility]) Reading Location: [facility] Patient Location: Outpatient. Procedure: Stress Echo, Color Doppler, Limited Spectral Doppler and Contrast. Keo stress echo. Indication for study: GAN Cardiac Rhythm: Regular.Study quality: Fair. Imaging limitations: This study was subject to imaging limitations due to the LBBB. Final Impressions: 1. Good exercise duration and workload. 2. Maximum stress test with 86.7% of age predicted maximum heart rate achieved. 3. During stress exam the patient developed shortness of breath and chest discomfort. 4. The EKG was non-diagnostic due to baseline LBBB. 5. Baseline preserved LV systolic function with LVEF 55%, dyssynchronous septal wall motion consistent with LBBB. 6. Post stress, normal left ventricular size, normal global systolic function with an estimated EF of 65 to 70%. 7. With stress there is hypokinesis of the mid-apical septum and apex, the specificity of which is reduced in the setting of LBBB. 8. Consider alternative means of risk stratification for reasons above. Stress Data: ? HR ?Systolic Diastolic Time Duration Minutes Seconds Baseline 70 bpm ?135 ?85 mmHg ?7 :59 ? Peak ? 134 bpm ?? 160 ?75 mmHg Max Pred HR ?155 % of Max ? 87% Double Product [id number] Echo Findings:This is a positive stress echo test for ischemia. Post stress, normal left ventricular size, normal global systolic function with an estimated EF of 65 to 70%. LV regional wall motion abnormalities are present post exercise. EKG:During exercise, the patient developed normal sinus rhythm with left bundle branch block. The EKG was non-diagnostic. Exam Protocol:The patient presents with no significant symptoms at baseline. The patient exercised 7 min 59 sec to stage III according to the Keo stress echo protocol. Test terminated due to completion of protocol, chest discomfort and shortness of breath. 10.2 METS were achieved. The patient achieved a heart rate of 134 bpm which is 86.7% of maximum predicted heart rate. Maximum systolic blood pressure was 160 [place] [id number]. Maximum stress test with 86.7% of age predicted maximum heart rate achieved. The blood pressure response was normal. Exercise duration and workload were good. The patient developed shortness of breath and chest discomfort during the stress exam. Intermediate (1-3% annual mortality rate) non invasive risk stratification. Exercise stress test Humphrey Treadmill Score of 0. Right Ventricular Systolic Pressure Estimate: The peak estimated right ventricular systolic pressure during stress was 26 mmHg. Chamber Sizes and Function Normal left ventricular size, normal global systolic function with an estimated EF of 55 - 60%. LV regional wall motion abnormalities are not present. Right ventricular cavity size is normal, global systolic RV function is normal. RV wall thickness is normal. Valves, RV Pressures and Diastolic Function The aortic valve is normal in structure and trileaflet, no stenosis and no regurgitation. The mitral valve is normal in structure, trace mitral regurgitation. The tricuspid regurgitant velocity is 2.0 m/s, the estimated right ventricular systolic pressure is 16 mmHg plus right atrial pressure. MEASUREMENTS AND CALCULATIONS 2-D Measurements and LV Function: LVID (d) 4.8 cm LV FS% (2D) ?? 25 % LVID (s) 3.6 cm HR ?70 bpm IVS (d) ??1.1 cm LA Vol index ??23 ml/m2 LVPW (d) 1.0 cm RV Max 4C (d) 3.6 cm Ao Sinus 3.7 cm Asc Ao ?? 3.8 cm LA ? 3.6 cm Aortic Valve: Vmax 1.3 m/s Max PG ??7 mmHg VTI ??0.25 m ??Mean PG 4 mmHg Tricuspid Valve and estimated PA pressures: TR Vmax 2.0 m/s TAPSE 2.0 cm TR maxG 16 mmHg Contrast documentation: 6 ml diluted Definity, lot #[id number], [facility]# [id number] was administered peripherally to enhance visualization of all left ventricular segments. . This study was interpreted by an [facility] accredited facility. ??Final ?? Procedure Note Joel Jacobo MD - 07/02/2023 STRESS ECHOCARDIOGRAM MARQUIS LONGO : 1960 63 years Study Date: 07/02/2023 7:50:28 AM Gender: M BP: 135/85 mmHg Height: 185.00 cm BSA: 2.22 m? ? ? Weight: 98.00 kg Tech: SOLE Referring MD: KEVEN ODOM Site: [facility]) Reading Location: [facility] Patient Location: Outpatient. Procedure: Stress Echo, Color Doppler, Limited Spectral Doppler andContrast. Keo stress echo. Indication for study: GAN Cardiac Rhythm: Regular.Study quality: Fair. Imaging limitations: This study was subject to imaging limitations due tothe LBBB. Final Impressions: 1. Good exercise duration and workload. 2. Maximum stress test with 86.7% of age predicted maximum heart rateachieved. 3. During stress exam the patient developed shortness of breath and chestdiscomfort. 4. The EKG was non-diagnostic due to baseline LBBB. 5. Baseline preserved LV systolic function with LVEF 55%, dyssynchronousseptal wall motion consistent with LBBB. 6. Post stress, normal left ventricular size, normal global systolicfunction with an estimated EF of 65 to 70%. 7. With stress there is hypokinesis of the mid-apical septum and apex,the specificity of which is reduced in the setting of LBBB. 8. Consider alternative means of risk stratification for reasons above. Stress Data: HR Systolic Diastolic Time Duration Minutes Seconds Baseline 70 bpm 135 85 mmHg 7 :59 Peak 134 bpm 160 75 mmHg Max Pred HR 155 % of Max 87% Double Product [id number] Echo Findings:This is a positive stress echo test for ischemia. Poststress, normal left ventricular size, normal global systolic function withan estimated EF of 65 to 70%. LV regional wall motion abnormalities arepresent post exercise. EKG:During exercise, the patient developed normal sinus rhythm with leftbundle branch block. The EKG was non-diagnostic. Exam Protocol:The patient presents with no significant symptoms atbaseline. The patient exercised 7 min 59 sec to stage III according to theOgden stress echo protocol. Test terminated due to completion of protocol,chest discomfort and shortness of breath. 10.2 METS were achieved. Thepatient achieved a heart rate of 134 bpm which is 86.7% of maximumpredicted heart rate. Maximum systolic blood pressure was 160 [place] [id number]. Maximum stress test with 86.7% of agepredicted maximum heart rate achieved. The blood pressure response wasnormal. Exercise duration and workload were good. The patient developedshortness of breath and chest discomfort during the stress exam.Intermediate (1-3% annual mortality rate) non invasive risk stratification. Exercise stress test Humphrey TreadmillScore of 0. Right Ventricular Systolic Pressure Estimate: The peak estimated rightventricular systolic pressure during stress was 26 mmHg. Chamber Sizes and Function Normal left ventricular size, normal global systolic function with anestimated EF of 55 - 60%. LV regional wall motion abnormalities are notpresent. Right ventricular cavity size is normal, global systolic RVfunction is normal. RV wall thickness is normal. Valves, RV Pressures and Diastolic Function The aortic valve is normal in structure and trileaflet, no stenosis and noregurgitation. The mitral valve is normal in structure, trace mitralregurgitation. The tricuspid regurgitant velocity is 2.0 m/s, theestimated right ventricular systolic pressure is 16 mmHg plus right atrialpressure. MEASUREMENTS AND CALCULATIONS 2-D Measurements and LV Function: LVID (d) 4.8 cm LV FS% (2D) 25 % LVID (s) 3.6 cm HR 70 bpm IVS (d) 1.1 cm LA Vol index 23 ml/m2 LVPW (d) 1.0 cm RV Max 4C (d) 3.6 cm Ao Sinus 3.7 cm Asc Ao 3.8 cm LA 3.6 cm Aortic Valve: Vmax 1.3 m/s Max PG 7 mmHg VTI 0.25 m Mean PG 4 mmHg Tricuspid Valve and estimated PA pressures: TR Vmax 2.0 m/s TAPSE 2.0 cm TR maxG 16 mmHg Contrast documentation: 6 ml diluted Definity, lot #[id number], [facility]#[id number] was administered peripherally to enhance visualization of allleft ventricular segments. . This study was interpreted by an [facility] accredited facility. Final Keven Odom MD ECHO ORD * STRESS TEST EXERCISE DONE WITH STRESS ECHO (07/02/2023 9:07 AM TECHNICIAN TELECOMMUNICATION SYSTEMS) Anatomical Region Laterality Modality HEART Ultrasound, Othe r, Other Keven Odom MD STRESS * SCAN-STRESS TEST (07/02/2023 12:00 AM TECHNICIAN TELECOMMUNICATION SYSTEMS) Anatomical Region Laterality Modality Ultrasound, Othe r, Other Narrative 07/02/2023 12:00 AM TECHNICIAN TELECOMMUNICATION SYSTEMS Ordered by an unspecified provider. Other Clinical Staff OTHER * (ABNORMAL) COMP METABOLIC PANEL (06/15/2023 12:02 PM TECHNICIAN TELECOMMUNICATION SYSTEMS) SODIUM 138 136 - 145 mmol/L 06/15/2023 12:26 PM [facility] POTASSIUM 5.2(H) 3.5 - 5.1 mmol/L 06/15/2023 12:26 PM [facility] CHLORIDE 104 98 - 107 mmol/L 06/15/2023 12:26 PM [facility] CO2,TOTAL 25 22 - 29 mmol/L 06/15/2023 12:26 PM [facility] ANION GAP 9 5 - 18 06/15/2023 12:26 PM [facility] GLUCOSE 92 70 - 99 mg/dL 06/15/2023 12:26 PM [facility] CALCIUM 9.1 8.8 - 10.2 mg/dL 06/15/2023 12:26 PM [facility] BUN 18 8 - 23 mg/dL 06/15/2023 12:26 PM [facility] CREATININE 1.16 0.70 - 1.20 mg/dL 06/15/2023 12:26 PM [facility] BUN/CREAT RATIO 16 10 - 20 12:26 PM [facility] eGFR 70(L) >90 mL/min/1.7 3m2 06/15/2023 12:26 PM [facility] Comment:As of 2021, eG FR is calculated by the CKD-EPI creatinine equation without race adjustment. ??eGFR can be influenced by muscle mass, exercise, and diet. ??The reported eGFR is an estimation only and is only applicable if the renal function is stable. ALBUMIN 4.0 4.0 - 4.9 g/dL 06/15/2023 12:26 PM [facility] PROTEIN,TOTAL 7.8 6.0 - 8.0 g/dL 06/15/2023 12:26 PM [facility] BILIRUBIN,TOTAL 0.4 0.0 - 1.2 mg/dL 06/15/2023 12:26 PM [facility] ALK PHOSPHATASE 81 40 - 129 IU/L 06/15/2023 12:26 PM [facility] ALT (SGPT) 14 10 - 50 IU/L 06/15/2023 12:26 PM [facility] AST (SGOT) 18 10 - 50 IU/L 06/15/2023 12:26 PM [facility] Blood BLOOD SPECIMEN / Unknown Venipuncture / Unknown 06/15/2023 12:02 PM TECHNICIAN TELECOMMUNICATION SYSTEMS 06/15/2023 12:05 PM [facility] Rickie Barbour MD CHEMISTRY [facility] [address] [place] [id number] * COMPLETE PULMONARY FUNCTION TEST WITH BRONCHODILATOR (06/15/2023 10:00 AM TECHNICIAN TELECOMMUNICATION SYSTEMS) Narrative [facility] - 06/15/2023 10:00 AM TECHNICIAN TELECOMMUNICATION SYSTEMS Elder Mclaughlin MD ? 06/16/2023 10:49 AM PULMONARY FUNCTION TEST Results and Interpretation ?? DATE OF SERVICE: 06/15/23 DIAGNOSIS/REASON FOR TEST: Dypsnea FINDINGS: The Patient reportedly appeared to give maximal effort. ??The PFT testing was performed on calibrated equipment and recorded in compliance with the ATS/ERS Task Force Standardization of Lung Function Testing. The PFT testing was performed in the seated position. ?? After three acceptable spirograms had been obtained, the following values were obtained and/or calculated: INTERPRETATION: Spirometry is normal The Flow-Volume loop is suggestive for obstructive lung disease but should not be used for diagnosis. Elder Mclaughlin M.D., M.P.H. ??F.C.C.P ? 06/16/2023 ?? 10:48 AM Pulmonary and Critical Care [facility] ?? Keven Odom MD PFT ORD [facility] NOW [place], [place] from Last 3 Months Advance Directives Latest Code Status on File Code Status Date Activated Date Inactivated Comments Full Code 08/07/2023 12:21 AM 08/08/2023 7:23 PM Question Answer Comments Code Status Discussion: Reviewed Preferences Code Status History Code Status Date Activated Date Inactivated Comments Full Code 10/07/2018 5:25 PM 10/09/2018 2:38 PM Full Code 04/13/2018 7:47 AM 04/13/2018 3:26 PM Care Teams Climatologist Relationship Specialty Start Date End Date Keven Odom MD [address] [facility] [place] [id number] PCP - General Family Practice 10/07/18
[2023-08-23] MEDS: 0.9 % SODIUM CHLORIDE 1000 ml 1,000 ML IV (10:30)
--- NOTE | 2023-08-23 10:31 | CRLHL7_ITS ---
For Patients: As a result of the Century Cures Act, medical imaging exams and procedure reports are released immediately into your electronic medical record. You may view this report before your referring provider. If you have questions, please contact your health care provider. Indication: Cough Technique: Chest 2 views Comparison: None Findings/Impression: Cardiovascular and mediastinum: Heart size and vasculature are normal in caliber and appearance. Mediastinum is within normal limits. Lungs and pleural spaces: Lungs are clear. No sign of infiltrate or mass. No sign of pleural effusion. No pneumothorax. Bones and soft tissues: No significant findings. Dictated by Stuart Napier MD @ 08/23/2023 11:41:38 AM (Electronically Signed)
[2023-08-23 11:01] LABS: Lactate* 1.5 mmol/L (0.5-1.9)
[2023-08-23 11:04] LABS: Basophils Percent Auto 0.3 % (0.0-3.0); Eosinophils Percent Auto 0.5 % (0.0-7.0); Hematocrit 34.1 % (37.0-53.0); Hemoglobin* 11.2 gm/dL (13.5-17.5); Immature Granulocytes Pct Auto 1.9 %; Lymphocytes Percent Auto 56.5 % (20-44); Mean Corpuscular HGB Conc 33 gm/dL (32-36); Mean Corpuscular Hemoglobin 25 pg (26-34); Mean Corpuscular Volume 76 fL (80-100); Monocytes Percent Auto 6.9 % (0.0-11.0); Neutrophils Percent Auto 33.9 % (42.0-72.0); Platelet Count* 300 K/uL (140-440); RDW Coefficient of Variation % 15.8 % (11.5-15.5); Red Blood Count 4.48 m/uL (4.30-5.90); White Blood Count* 15.41 K/uL (4.50-11.00)
[2023-08-23 11:25] LABS: Albumin* 3.1 g/dL (3.3-5.0); Chloride* 91 mmol/L (96-114)
[2023-08-23 11:26] LABS: Potassium* 3.6 mmol/L (3.6-5.1)
[2023-08-23 11:28] LABS: Creatinine* 1.4 mg/dL (0.5-1.5); Est. Creatinine Clearance* 59.45; Estimated Glomerular Filt Rate 56 ml/min
[2023-08-23 11:29] LABS: Alanine Aminotransferase* 41 U/L (4-50); Alkaline Phosphatase* 69 U/L (40-150); Anion Gap 8 mEq/L (7-15); Aspartate Amino Transferase* 64 U/L (12-35); Bilirubin Direct* 0.2 mg/dL (0.0-0.5); Bilirubin Total* 0.5 mg/dL (0.1-1.5); Blood Urea Nitrogen* 21 mg/dL (7-30); Calcium* 7.6 mg/dL (8.4-10.6); Carbon Dioxide* 20 mmol/L (20-32); Glucose* 116 mg/dL (60-115); Lipase* 132 U/L (23-300); Total Protein* 6.7 g/dL (6.0-8.3)
[2023-08-23 11:32] LABS: C Reactive Protein* 2.4 mg/dL (0.5-1.0)
[2023-08-23 11:35] LABS: Partial Thromboplastin Time* 43 Seconds (23-33); Slide Review Reflex Yes
[2023-08-23 11:37] LABS: Slide Review Acceptable Review (Acceptable)
[2023-08-23 11:39] LABS: Sodium* 119 mmol/L (135-149)
--- NOTE | 2023-08-23 11:44 | ED.NURSE ---
MD aware of critical sodium 119. Heads up given to HS and MS.
[2023-08-23 11:46] LABS: NT Pro B Type NatriureticPept* 540 pg/mL; PCR FLU A Negative PCR FLU A (Negative); PCR FLU B Negative PCR FLU B (Negative); PCR RSV Negative PCR RSV (Negative); Procalcitonin* 0.74 ng/mL (<0.50); SARS PCR* Negative SARS-CoV-2 (Negative)
--- NOTE | 2023-08-23 11:54 | CRLHL7_ITS ---
For Patients: As a result of the Century Cures Act, medical imaging exams and procedure reports are released immediately into your electronic medical record. You may view this report before your referring provider. If you have questions, please contact your health care provider. Indication: Hyponatremia, weakness, rule out potential intracranial mass Technique: Volumetric multidetector CT images of the head were obtained without the administration of low osmolar intravenous contrast. Comparison: None available Findings: There is no intra-axial or extra-axial fluid collection. There is no mass effect or midline shift. There is age-related cortical atrophy with mild sulcal widening and ex vacuo dilatation of the lateral ventricles. There are chronic small vessel disease changes in the subcortical and periventricular white matter without lost cano-white differentiation. The orbits and their contents are grossly within normal limits. The bony calvarium is grossly intact. The paranasal sinuses are clear. The mastoid air cells are well aerated. Impression: 1. Age-related changes of the brain without acute intracranial abnormality. Please note that all CT scans at this facility use dose modulation, iterative reconstruction, and/or weight-based dosing when appropriate to reduce radiation dose to as low as reasonably achievable. Dictated by Deon Gannon MD @ 08/23/2023 1:13:50 PM (Electronically Signed)
[2023-08-23 12:31] LABS: Appearance Urine Clear (Clear); Bilirubin Urine Negative (Negative); Blood Urine Trace-intact (Negative); Color Urine Yellow (Yellow); Glucose Urine Negative (Negative); Ketones Urine Negative (Negative); Leukocyte Esterase Urine Negative (Negative); Nitrite Urine Negative (Negative); Protein Urine 1+ (Negative); Urobilinogen Urine 0.2 (0.2-1.0)
--- NOTE | 2023-08-23 12:39 | ED.WEAKNESS ---
HPI - Weakness General Date Seen: 08/23/23 Chief complaint: Weakness Stated complaint: weakness Time Seen by Provider: 08/23/23 09:05 Source: patient and family Mode of arrival: wheelchair Limitations: no limitations History of Present Illness HPI Narrative: Patient is a 63-year-old gentleman who presents here with weakness the weakness is been ongoing for the last 3-4 months and progressively worse. He has been the emergency room twice now admitted once for what sounds like pouchitis and possibly a little bit of bleeding from his ostomy. Finished a course of Cipro and Flagyl last week, and just really has not recovered drinking free water, although admits to me that he does not think he is drinking a lot of this. No vomiting but some nausea, just overall weakness. This started approximately 3-4 months ago, any were having him see Cardiology. They actually had an appointment to get scoped at [facility] but they would not do it in like fill without a Cardiology consult. Denies any chest pain, no shortness of breath associated with this, and no weakness with exertion but tells me really can not even exert himself. is worried as he really does need anything but he has not lost any weight. Over this last 6 weeks. No fevers no chills, no chest pain, no abdominal pain now, no back pain, no numbness tingling weakness, no headaches, really just weakness. MD Complaint: generalized weakness Associated symptoms: denies other symptoms Related Data Home Medications Medication Instructions Recorded Confirmed sildenafil 50 mg tablet (Viagra) 50 mg PO DAILY PRN 04/21/22 04/29/22 vitamin [id number] B1 1,000 1 ml IM .[id number] 04/21/22 04/29/22 mcg-100 mg/mL injection solution famotidine 40 mg tablet 40 mg PO QPM 08/23/23 08/23/23 Allergies Allergy/AdvReac Type Severity Reaction Status Date / Time No Known Drug Allergies Allergy Verified 08/23/23 09:26 Review of Systems Status of ROS: Reports: 10 or more systems reviewed and unremarkable except as noted in History and below [facility] Medical History Exertional chest pain ?R07.9 - Chest pain, unspecified (ICD-10) Abnormal cardiovascular stress test ?R94.39 - Abnormal result of other cardiovascular function study (ICD-10) Small bowel obstruction ?K56.609 - Unspecified intestinal obstruction, unspecified as to partial versus complete obstruction (ICD-10) Skin problem ?L98.9 - Disorder of the skin and subcutaneous tissue, unspecified (ICD-10) Ulcerative colitis ?K51.90 - Ulcerative colitis, unspecified, without complications (ICD-10) Surgical History (Updated 04/29/22 @ 11:34 by Jimena Reardon ~ [facility]) Status post medial meniscectomy of right knee (04/22/22) ?Z98.890 - Other specified postprocedural states (ICD-10) H/O colectomy ?Z90.49 - Acquired absence of other specified parts of digestive tract (ICD-10) Family History (Updated 04/03/22 @ 10:04 by Tejal Rodriguez ~ [facility]) Mother Breast cancer Social History (Reviewed 04/29/22 @ 11:01 by Jimena Reardon ~ [facility], [facility]) Smoking Status: Never smoker Do you use any of these nicotine containing products: None How often do you have a drink containing alcohol: 2-4 times a month Alcohol type: wine How many standard drinks containing alcohol do you have on a typical day: 1 or 2 How often do you have six or more drinks on one occasion: Weekly AUDIT-C Alcohol total score: 5 Non-prescribed substance use: denies use Caffeine: Yes (COFFEE 2 CUPS PER DAY) Exam Narrative: Exam Narrative: Patient is seen in room 5, he appears weak but otherwise fairly good color, interacting normally with me. His pupils are equal round reactive to light his tympanic membranes are normal bilaterally his oropharynx appears dry, but otherwise normal JVP is flat, carotid upstrokes are equal, cranial nerves 3-12 are normal, fundi appear normal. His neck is supple full range of motion, chest is good air entry bilaterally with no wheezes or crackles noted his heart sounds are normal. No clicks murmurs or gallops noted. His abdomen is soft, there is scars from previous surgical procedures well-healed any has an ostomy opening in his right groin. Where he tells me he drains is pouch. Bowel sounds are normal, no tenderness no organomegaly, no CVA tenderness no masses no redness over his back. His extremities are all normal with no edema swelling he moves all extremities indeed independently and well. And symmetrical. Skin reveals no rashes, he does have some seborrheic keratosis noted on his back. Const: Vital Signs, click to edit/add: Vital Signs - 24 hr 08/23/23 09:01 08/23/23 10:30 08/23/23 11:09 Temperature 98.0 F Pulse Rate 95 Pulse Rate [Right Pulse Oximeter] 98 Respiratory Rate 18 Blood Pressure Blood Pressure [Ri ght Upper Arm] 105/69 Pulse Oximetry 97 97 97 Oxygen Delivery Me thod Room Air 08/23/23 11:15 08/23/23 11:22 08/23/23 11:30 Temperature Pulse Rate 100 93 92 Pulse Rate [Right Pulse Oximeter] Respiratory Rate Blood Pressure 100/67 Blood Pressure [Ri ght Upper Arm] Pulse Oximetry 94 93 94 Oxygen Delivery Me thod 08/23/23 11:42 08/23/23 11:45 08/23/23 12:00 Temperature Pulse Rate 90 94 103 H Pulse Rate [Right Pulse Oximeter] Respiratory Rate Blood Pressure 101/61 Blood Pressure [Ri ght Upper Arm] Pulse Oximetry 89 90 95 Oxygen Delivery Me thod 08/23/23 12:02 08/23/23 12:16 08/23/23 12:22 Temperature Pulse Rate 99 102 H 101 H Pulse Rate [Right Pulse Oximeter] Respiratory Rate Blood Pressure 99/62 100/64 Blood Pressure [Ri ght Upper Arm] Pulse Oximetry 96 99 97 Oxygen Delivery Me thod Documenting provider has reviewed patient's vital signs: yes Course Course ED Course: Spoke to Dr. Russo from Hospital Medicine, he should be admitted for at least hyponatremia, trying to sort this out, he also has leukocytosis, hypothyroidism, hypocalcemia. Blood cultures done in the emergency room. But I think I do not have a source, he is just coming off of treatment with Cipro and Flagyl I did do a point of care ultrasound, which showed overall good heart function no pericardial effusion, he had a kissing IVC which tells me he has fluid depleted. I will order a head CT to further differentiate to make sure there is no space occupying lesion causing his hyponatremia, and weakness We gave him a L of normal saline here, but he needs to be hyponatremic reversed over a longer period of times slowly. Vital Signs Vital signs: Initial Vital Signs Temperature 98.0 F 08/23/23 09:01 Temperature Source Temporal Artery Scan 08/23/23 09:01 Pulse Rate 98 08/23/23 09:01 Respiratory Rate 18 08/23/23 09:01 Blood Pressure 105/69 08/23/23 09:01 Blood Pressure Mean 81 08/23/23 09:01 Blood Pressure Position Sitting 08/23/23 09:01 Pulse Oximetry 97 08/23/23 09:01 Oxygen Delivery Method Room Air 08/23/23 09:01 Vital Signs Temperature 98.0 F 08/23/23 09:01 Pulse Rate 98 08/23/23 09:01 Respiratory Rate 18 08/23/23 09:01 Blood Pressure 105/69 08/23/23 09:01 Pulse Oximetry 97 08/23/23 09:01 Oxygen Delivery Method Room Air 08/23/23 09:01 Temperature 98.0 F 08/23/23 09:01 Pulse Rate 101 H 08/23/23 12:22 Respiratory Rate 18 08/23/23 09:01 Blood Pressure 100/64 08/23/23 12:22 Pulse Oximetry 97 08/23/23 12:22 Oxygen Delivery Method Room Air 08/23/23 09:01 Medications Administered Medications: Discontinued Medications Generic Name Dose Route Start Last Admin Trade Name Freq PRN Reason Stop Dose Admin Sodium Chloride 1,000 mls @ 1,000 mls/hr 08/23/23 10:30 08/23/23 12:07 0.9 % Sodium Chloride 1000 Ml IV 08/23/23 11:29 Infused .Q1H DILLAN Infusion MDM - Weakness MDM Narrative Medical decision making narrative: Life-threatening differential diagnosis considered include stroke, coronary artery disease, pneumonia, and heart failure. Other differential diagnosis include but are not limited to electrolyte imbalances, anemia, medication reactions, and urinary tract infection Medical Records Attestation: I reviewed the patient's medical records. Lab Data Attestation: I reviewed the patient's lab results. Labs: Lab Results 08/23/23 Range/Units 10:49 WBC 15.41 H (4.50-11.00) K/uL RBC 4.48 (4.30-5.90) m/uL Hgb 11.2 L (13.5-17.5) gm/dL Hct 34.1 L (37.0-53.0) % MCV 76 L (80-100) fL MCH 25 L (26-34) pg MCHC 33 (32-36) gm/dL RDW Coeff of Les 15.8 H (11.5-15.5) % Plt Count 300 (140-440) K/uL Neut % (Auto) 33.9 L (42.0-72.0) % Lymph % (Auto) 56.5 H (20-44) % [place] % (Auto) 6.9 (0.0-11.0) % Eos % (Auto) 0.5 (0.0-7.0) % Baso % (Auto) 0.3 (0.0-3.0) % Neut # (Auto) 5.20 (1.7-7.0) K/uL Lymph # (Auto) 8.70 H (0.90-2.90) K/uL [place] # (Auto) 1.10 H (0.00-0.90) K/UL Eos # (Auto) 0.10 (0.00-0.50) K/uL Baso # (Auto) 0.00 (0.00-0.30) K/uL Abs Immat Gran (auto) 0.30 (0.00-0.30) K/uL Imm/Tot Granulo (auto) 1.9 % Diff Slide Review Acceptable Review (Acceptable) INR 1.20 H (0.91-1.10) APTT 43 H (23-33) Seconds Sodium 119 L* (135-149) mmol/L Potassium 3.6 (3.6-5.1) mmol/L Chloride 91 L (96-114) mmol/L Carbon Dioxide 20 (20-32) mmol/L Anion Gap 8 (7-15) mEq/L BUN 21 (7-30) mg/dL Creatinine 1.4 (0.5-1.5) mg/dL Estimated Creat Clear 59.45 Estimated GFR 56 ml/min Glucose 116 H (60-115) mg/dL Lactate 1.5 (0.5-1.9) mmol/L Calcium 7.6 L (8.4-10.6) mg/dL Total Bilirubin 0.5 (0.1-1.5) mg/dL Direct Bilirubin 0.2 (0.0-0.5) mg/dL AST 64 H (12-35) U/L ALT 41 (4-50) U/L Alkaline Phosphatase 69 (40-150) U/L C-Reactive Protein 2.4 H (0.5-1.0) mg/dL NT-Pro-B Natriuret Pep 540 pg/mL Total Protein 6.7 (6.0-8.3) g/dL Albumin 3.1 L (3.3-5.0) g/dL Lipase 132 (23-300) U/L Procalcitonin 0.74 H (<0.50) ng/mL TSH 5.320 H (0.270-4.20) uIU/mL SARS-CoV-2 (PCR) Negative SARS-CoV-2 (Negative) Influenza Type A (PCR) Negative PCR FLU A (Negative) Influenza Type B (PCR) Negative PCR FLU B (Negative) RSV (PCR) Negative PCR RSV (Negative) ABG Data Attestation: I personally reviewed and interpreted this ABG as follows: Imaging Data Chest x-ray: Attestation: I have reviewed the pertinent imaging results. My impression: Chest x-ray shows no acute findings. ECG Data Attestation: I personally reviewed and interpreted this ECG as follows: ECG interpretation time: 12:43 Prior ECG tracings: not available for review Interpretation: Left bundle-branch block morphology, sinus rhythm, the ventricular rate of 97. Discharge Plan Discharge Clinical Impression: Leukocytosis, Weakness, Acute hyponatremia, Hypocalcemia Patient Disposition: Admitted As Observation Prescriptions: No Action famotidine 40 mg tablet 40 mg PO QPM vitamin [id number] B1 1,000-100 mg/mL solution 1 ml IM .[id number] sildenafil [Viagra] 50 mg tablet 50 mg PO DAILY PRN Rx Instructions: administer 30 minutes to 4 hours before activity Follow Up/Referrals: Rashawn Perez MD [Primary Care Provider] -
[2023-08-23 12:46] LABS: RBC Urine 0-2 (0-2); WBC Urine 0-2 (0-5)
[2023-08-23 12:47] LABS: Bacteria Urine Few; Squamous Epithelial Cell Urine Few (None-Few)
--- NOTE | 2023-08-23 13:27 | ED.NURSE ---
Given report to M/S nurse and plan to admit via cart and monitor tele. plan to admit to room CCU 3.
[2023-08-23 15:15] LABS: Iron* 41 ug/dL (49-181)
[2023-08-23 15:16] LABS: Phosphorus* 4.5 mg/dL (2.5-4.5)
[2023-08-23 15:25] LABS: Percent Iron Saturation 19 % (20-50); Total Iron Binding Capacity 214 ug/dL (261-462)
[2023-08-23 15:34] LABS: Free T4 Free Thyroxine* 1.65 ng/dL (0.70-1.85)
[2023-08-23 16:04] LABS: Troponin I* 0.01 ng/mL (0.01-0.04)
[2023-08-23] MEDS: SODIUM CHLORIDE 1 GM TABLET PO (18:12)
--- NOTE | 2023-08-23 18:44 | P.IMHP_ITS ---
Hospitalist- H&P: HPI History of Present Illness Date Seen: 08/23/23 Chief complaint: weakness Narrative: Marquis Wynne is a 63 year old male With ulcerative colitis status post colectomy was admitted to the hospital with 1 month of illness. He 1st became ill about 1 month ago. At that time he had bronchitis. In mid July he was diagnosed with influenza a which possibly was the cause of his bronchitis. At that time he also reports that he had lost his appetite. On August 06 he was admitted to the hospital with a possible small-bowel obstruction. At that time he was having bleeding from his internal pouch. The bleeding stopped after a day or 2 but then he developed diarrhea and was diagnosed with pouchitis on August 11. He was treated with Cipro and Flagyl and finished that treatment 3 days ago. His abdominal pain and diarrhea and bleeding have all stopped. During that last part of July he also reported having no appetite. They concluded he did not have a small-bowel obstruction. He reports having no appetite. When he does eat he gets full very quickly. He has not had vomiting. He had dark red blood in his stool on 08/06/2019 is admitted the hospital but that has resolved. He has not had black stools or bright red blood in his stools since that time. He was scheduled to have upper endoscopy because the bleeding but that was postponed due to concerns about his heart. He was put on Prilosec pending his endoscopy to evaluate for the bl eeding. CT abdomen and pelvis on 08/06/2019 for raise the possibly the small- bowel obstruction but this was subsequently felt not to be a small bowel obstruction but just his pelvic reservoir or internal pouch. He was seen in May with some chest pain. He notes that he has had exertional dyspnea and chest pain for some time. He was found to have a left bundle branch block of unknown duration. He had a stress echo test In June which was unremarkable. The results were somewhat indeterminate due to a small wall motion abnormality possibly related to his left bundle branch block. On August [address] of his chest which showed no PE. In the last few days he reports still having very poor appetite with poor oral intake. He feels like his heads in a fog. He also feels generalized fatigue and malaise. He had a colectomy for ulcerative colitis in 1977. In 1994 he had an ileostomy takedown and surgically placed internal pouch. this is been working well since that time. He is not aware of any other complications related ulcerative colitis since his colectomy Review of Systems Narrative: he is not aware of any fever. He still has exertional dyspnea and chest pain. Coughing is better. No further dark red blood in his stool. No further diarrhea. No significant abdominal pain. No urinary problems. 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) GI bleeding ?K92.2 - Gastrointestinal hemorrhage, unspecified (ICD-10) Exertional chest pain ?R07.9 - Chest pain, unspecified (ICD-10) Abnormal cardiovascular stress test ?R94.39 - Abnormal result of other cardiovascular function study (ICD-10) Small bowel obstruction ?K56.609 - Unspecified intestinal obstruction, unspecified as to partial versus complete obstruction (ICD-10) Skin problem ?L98.9 - Disorder of the skin and subcutaneous tissue, unspecified (ICD-10) Ulcerative colitis ?K51.90 - Ulcerative colitis, unspecified, without complications (ICD-10) Surgical History Status post medial meniscectomy of right knee (04/22/22) ?Z98.890 - Other specified postprocedural states (ICD-10) H/O colectomy ?Z90.49 - Acquired absence of other specified parts of digestive tract (ICD- 10) Family History Mother Breast cancer Social History (Updated 08/23/23 @ 19:01 by Skyler العلي MD) Narrative: he lives with his Cleopatra. She is healthcare power of senior maintenance machinist. Code status is full. Does not smoke. He drinks a few glasses of wine per week. What is your current living situation?: I presently have a place to live Problems where you live: no known problems Problems where you live details: NA In the past 12 months, utilities in danger of being shut off: no In past 12 months, lack of transportation kept you from medical appts, meetings, work, or getting things needed for daily living: no In the past 12 mos, have been you worried that your food would run out before you had money to buy more?: never true In the past 12 mos, the food you bought just didn't last and you didn't have money to buy more?: never true Highest level of school completed/degree received: some college, no degree Smoking Status: Never smoker Do you use any of these nicotine containing products: None How often do you have a drink containing alcohol: monthly or less Alcohol type: beer and wine How many standard drinks containing alcohol do you have on a typical day: 1 or 2 How often do you have six or more drinks on one occasion: Never AUDIT-C Alcohol total score: 1 Non-prescribed substance use: denies use Caffeine: No How often does anyone, including family, friends and others, physically hurt you : never How often does anyone, including family, friends and others, insult or talk down to you: never How often does anyone, including family, friends and others, threaten you with harm: never How often does anyone, including family, friends and others, scream or curse at you: never service: No Meds Home Medications and Allergies Home Medications Medication Instructions Recorded Confirmed Type sildenafil 50 mg tablet (Viagra) 50 mg PO DAILY PRN 04/21/22 08/23/23 History cholecalciferol (vitamin D3) 25 25 mcg PO DAILY 08/23/23 08/23/23 History mcg (1,000 unit) capsule (Vitamin D3) diclofenac sodium 1 % topical gel 2 g topical QID 08/23/23 08/23/23 History (Arthritis Pain (diclofenac)) famotidine 40 mg tablet 40 mg PO QPM 08/23/23 08/23/23 History Allergies Allergy/AdvReac Type Severity Reaction Status Date / Time No Known Drug Allergies Allergy Verified 08/23/23 09:26 Exam Narrative: Exam Narrative: He is alert and appears in no distress. He gives his own history. Eyes normal. Extraocular movements are full. Visual diaz are intact. No facial asymmetry. Neck is supple without mass or adenopathy. Respirations are clear to auscultation. Cardiovascular: S1, S2, regular rate and rhythm. No murmur gallop or rub. Abdomen: Bowel sounds are active. Abdomen is soft without tenderness or mass. The opening of his internal pouch is in his right lower quadrant. No obvious blood present at that opening. External genitalia normal. Extremities with intact pulses and sensation. No edema. Const: Vital Signs, click to edit/add: Vital Signs - 24 hr 08/23/23 09:01 08/23/23 10:30 08/23/23 11:09 Temperature 98.0 F Pulse Rate 95 Pulse Rate [Right Pulse Oximeter] 98 Respiratory Rate 18 Blood Pressure Blood Pressure [Ri ght Arm] Blood Pressure [Ri ght Upper Arm] 105/69 Pulse Oximetry 97 97 97 Oxygen Delivery Me thod Room Air 08/23/23 11:15 08/23/23 11:22 08/23/23 11:30 Temperature Pulse Rate 100 93 92 Pulse Rate [Right Pulse Oximeter] Respiratory Rate Blood Pressure 100/67 Blood Pressure [Ri ght Arm] Blood Pressure [Ri ght Upper Arm] Pulse Oximetry 94 93 94 Oxygen Delivery Me thod 08/23/23 11:42 08/23/23 11:45 08/23/23 12:00 Temperature Pulse Rate 90 94 103 H Pulse Rate [Right Pulse Oximeter] Respiratory Rate Blood Pressure 101/61 Blood Pressure [Ri ght Arm] Blood Pressure [Ri ght Upper Arm] Pulse Oximetry 89 90 95 Oxygen Delivery Me thod 08/23/23 12:02 08/23/23 12:16 08/23/23 12:22 Temperature Pulse Rate 99 102 H 101 H Pulse Rate [Right Pulse Oximeter] Respiratory Rate Blood Pressure 99/62 100/64 Blood Pressure [Ri ght Arm] Blood Pressure [Ri ght Upper Arm] Pulse Oximetry 96 99 97 Oxygen Delivery Me thod 08/23/23 12:23 08/23/23 12:30 08/23/23 12:44 Temperature Pulse Rate 103 H 102 H 100 Pulse Rate [Right Pulse Oximeter] Respiratory Rate Blood Pressure 114/71 Blood Pressure [Ri ght Arm] Blood Pressure [Ri ght Upper Arm] Pulse Oximetry 97 97 97 Oxygen Delivery Me thod 08/23/23 12:45 08/23/23 13:00 08/23/23 13:02 Temperature Pulse Rate 100 101 H 102 H Pulse Rate [Right Pulse Oximeter] Respiratory Rate Blood Pressure 96/68 Blood Pressure [Ri ght Arm] Blood Pressure [Ri ght Upper Arm] Pulse Oximetry 96 98 96 Oxygen Delivery Me thod 08/23/23 13:15 08/23/23 13:22 08/23/23 13:30 Temperature Pulse Rate 102 H 103 H 104 H Pulse Rate [Right Pulse Oximeter] Respiratory Rate Blood Pressure 100/65 Blood Pressure [Ri ght Arm] Blood Pressure [Ri ght Upper Arm] Pulse Oximetry 97 95 95 Oxygen Delivery Me thod 08/23/23 13:52 08/23/23 13:52 Temperature 98.1 F Pulse Rate Pulse Rate [Right Pulse Oximeter] 97 Respiratory Rate 14 Blood Pressure Blood Pressure [Ri ght Arm] 101/61 Blood Pressure [Ri ght Upper Arm] Pulse Oximetry 95 95 Oxygen Delivery Me thod Room Air Room Air Documenting provider has reviewed patient's vital signs: yes Hospitalist - H&P: Result Labs Labs: Short CBC 08/23/23 Range/Units 10:49 WBC 15.41 H (4.50-11.00) K/uL Hgb 11.2 L (13.5-17.5) gm/dL Hct 34.1 L (37.0-53.0) % Plt Count 300 (140-440) K/uL BMP 08/23/23 10:49 Sodium 119 L* Potassium 3.6 Chloride 91 L Carbon Dioxide 20 BUN 21 Creatinine 1.4 Glucose 116 H Calcium 7.6 L Cardiac Enzymes 08/23/23 Range/Units 10:49 Troponin I 0.01 (0.01-0.04) ng/mL Liver Function 08/23/23 Range/Units 10:49 Total Bilirubin 0.5 (0.1-1.5) mg/dL Direct Bilirubin 0.2 (0.0-0.5) mg/dL AST 64 H (12-35) U/L ALT 41 (4-50) U/L Alkaline Phosphatase 69 (40-150) U/L Albumin 3.1 L (3.3-5.0) g/dL Urine 08/23/23 Range/Units 10:31 Urine Color Yellow (Yellow) Urine Appearance Clear (Clear) Urine pH 6.0 (5.0-8.5) Ur Specific [place] 1.010 (1.000-1.030) Urine Protein 1+ A (Negative) Urine Glucose (UA) Negative (Negative) ECG Attestation: I personally reviewed and interpreted this ECG as follows: ( Electrocardiogram shows a normal sinus rhythm with a left bundle branch block. No comparison) ECG interpretation date: 08/23/23 Assessment and Plan Assessment and plan (1) Acute hyponatremia: Problem comment: Ten days ago had a sodium of 130. Two weeks ago had a sodium of 134. On ad mission sodium is 119. Cautious sodium replacement with improved diet and improved sodium intake and fluid restriction. This is likely caused by poor oral intake over the last few weeks. Status: Acute (2) GI bleeding: Problem comment: 2 weeks ago had dark red blood in his stool. Resolved after couple days. obtain EGD to evaluate GI bleeding as well as poor appetite Status: Acute (3) Weight loss: Problem comment: patient reports 10 lb weight loss over the last month due to having no appetite. As best I can tell he has had a 10 lb weight loss since he was seen at the end of May. Status: Acute (4) Loss of appetite: Problem comment: Cause for this is uncertain. Obtain right upper quadrant ultrasound and EGD to evaluate. Status: Acute (5) Weakness: Problem comment: Weakness over the last month is likely due to multiple illnesses and hospital stays. Status: Acute (6) Exertional chest pain: Problem comment: Has outpatient follow-up with Cardiology at the end of August Status: Acute Plan Patient is admitted the hospital for evaluation and management of hyponatremia, weight loss, GI bleeding. Total time spent today is 80 minutes, 50 minutes in coordination of care discussing with patient, and other providers ongoing management of above problems
[2023-08-23] MEDS: MAG HYDROX/ALUMINUM HYD/SIMETH 30 ML ORAL.SUSP 15 ML PO (19:42)
[2023-08-23] MEDS: CALCIUM CARBONATE 500 MG CHEW PO (19:42)
--- NOTE | 2023-08-23 19:45 | PC.NURSE ---
Nursing Care Hours: [id number] Pt this shift arrived to unit via w/c, calm and cooperative, alert and oriented, slowed speech. SB assist with ambulation d/t weakness. BM from ostomy x1 per pt. Void x2. FR 1500 tolerated well. Ensure clear given, drank 100%. Attempted ingram and cinnamon roll but could only handle one bite. VSS. No c/o pain at this time. Dry cough intermittent.
[2023-08-23] MEDS: SODIUM CHLORIDE 0.9 % (FLUSH) 10 ML SYRINGE 5 ML IVF (20:40)
[2023-08-23 20:47] LABS: Sodium* 122 mmol/L (135-149)
[2023-08-23] MEDS: ACETAMINOPHEN 325 MG TABLET 650 MG PO (22:16)
[2023-08-23] MEDS: ONDANSETRON 2 MG/ML inj 4 MG IVP (22:16)
[2023-08-23 22:51] LABS: Lactate* 1.7 mmol/L (0.5-1.9)
[2023-08-23 23:26] LABS: Procalcitonin* 0.74 ng/mL (<0.50)
--- NOTE | 2023-08-23 23:45 | CRLHL7_ITS ---
For Patients: As a result of the Century Cures Act, medical imaging exams and procedure reports are released immediately into your electronic medical record. You may view this report before your referring provider. If you have questions, please contact your health care provider. INDICATION: Fever, dyspnea, nausea, abdominal bloating TECHNIQUE: CT chest, abdomen and pelvis acquired with 100 cc of Isovue 70 IV contrast. Permanently recorded images are archived. COMPARISON: None. FINDINGS: CHEST: Cardiovascular structures: Heart size is normal. Thoracic aorta and main pulmonary artery are normal in caliber. Mediastinum and john: No mass or adenopathy. Lungs and pleura: Lungs and pleural spaces are clear for from mild dependent atelectasis in the lower lobes. No suspicious nodules, infiltrates, or effusions. No pneumothorax. Chest wall and axilla: No mass or adenopathy. Bones: No suspicious bone lesions. Unremarkable for age. ABDOMEN AND PELVIS: Liver: Unremarkable. Gallbladder and bile ducts: Unremarkable. Pancreas: Unremarkable. Spleen: Unremarkable. Adrenal glands: Unremarkable. Kidneys: Unremarkable. GI tract: Postsurgical changes of previous rectal resection with creation of a neorectum and a right lower quadrant ostomy. 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 This appears chronic. There are no significant inflammatory changes about this area. Vascular structures: Unremarkable. Lymph nodes: Prominent right lower quadrant lymph nodes. Miscellaneous: Unremarkable. No free air or significant free fluid. Pelvic Organs: Unremarkable. Bones: No suspicious bone lesions. Unremarkable for age. IMPRESSION: 1. No acute findings within the chest. 2. Postsurgical changes of previous rectal resection with creation of a neorectum in a right lower quadrant ostomy. 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 3. Prominent right lower quadrant lymph nodes, likely reactive. 4. No bowel obstruction. Please note that all CT scans at this facility use dose modulation, iterative reconstruction, and/or weight-based dosing when appropriate to reduce radiation dose to as low as reasonably achievable. Dictated by Joel Peng MD @ 08/24/2023 2:04:49 AM (Electronically Signed)
[2023-08-24] VITALS (9 sets, daily range): BP systolic 97–114; BP diastolic 59–72; PULSE 97–107; RESP 16–20; TEMP 36.4–37.8; O2SAT 93–100; BMI 27.1
[2023-08-24] MEDS: PIPERACILLIN/TAZOBACTAM 3.375 GM in 0.9 % SODIUM CHLORIDE Mini-bag 100 ML IVPB ×4 (02:22→20:40)
--- NOTE | 2023-08-24 05:55 | PC.NURSE ---
End of shift report [id number]: Alert and oriented x 4. Denies any pain or shortness of breath. Patient has dry, non productive cough. At 2100 patient reporting feeling warm, temp 99.7. At 2205 patient placed call light on stating he was sweating, oral temp 101.4 at that time. Required bedding and clothing change at that time. Dr. العلي updated with temperature, new orders received. Tylenol administered for fever, medication effective with temperature decreasing to 100.0 after 1 hour and patient afebrile after 3 hours. NPO at midnight. Ambulates with SBA. Patient has internal pouch in right lower quadrant, patient independent with care.
--- NOTE | 2023-08-24 06:30 | CRLHL7_ITS ---
For Patients: As a result of the Century Cures Act, medical imaging exams and procedure reports are released immediately into your electronic medical record. You may view this report before your referring provider. If you have questions, please contact your health care provider. INDICATION: Abdominal pain and bloating TECHNIQUE: Ultrasound abdomen limited. Sonographic images of the right upper quadrant were obtained using cano-scale and color Doppler images. COMPARISON: None FINDINGS: Liver: Normal in size and echotexture. No masses. No intrahepatic biliary dilatation. Gallbladder: No stones or sludge. Normal wall thickness. No pericholecystic fluid. Common bile duct: 4 mm. Pancreas: Partially obscured by bowel gas without discrete lesion. Right kidney: Normal in size. Normal echotexture and cortex. No masses, stones, or hydronephrosis. Vasculature: Proximal abdominal aorta and IVC are normal. IMPRESSION: Unremarkable right upper quadrant ultrasound. Dictated by Stuart Napier MD @ 08/24/2023 8:11:44 AM (Electronically Signed)
[2023-08-24 06:36] LABS: Basophils Percent Auto 0.2 % (0.0-3.0); Eosinophils Percent Auto 0.8 % (0.0-7.0); Hematocrit 34.2 % (37.0-53.0); Hemoglobin* 11.2 gm/dL (13.5-17.5); Immature Granulocytes Pct Auto 1.6 %; Lymphocytes Percent Auto 55.7 % (20-44); Mean Corpuscular HGB Conc 33 gm/dL (32-36); Mean Corpuscular Hemoglobin 25 pg (26-34); Mean Corpuscular Volume 77 fL (80-100); Monocytes Percent Auto 6.6 % (0.0-11.0); Neutrophils Percent Auto 35.1 % (42.0-72.0); Platelet Count* 284 K/uL (140-440); Red Blood Count 4.42 m/uL (4.30-5.90); White Blood Count* 12.86 K/uL (4.50-11.00)
[2023-08-24 06:37] LABS: Slide Review Reflex No
[2023-08-24 06:49] LABS: Chloride* 97 mmol/L (96-114); Sodium* 128 mmol/L (135-149)
[2023-08-24 06:50] LABS: Potassium* 3.6 mmol/L (3.6-5.1)
[2023-08-24 06:52] LABS: Creatinine* 1.6 mg/dL (0.5-1.5); Est. Creatinine Clearance* 52.02; Estimated Glomerular Filt Rate 48 ml/min
[2023-08-24 06:53] LABS: Anion Gap 10 mEq/L (7-15); Blood Urea Nitrogen* 21 mg/dL (7-30); Carbon Dioxide* 21 mmol/L (20-32); Glucose* 107 mg/dL (60-115)
[2023-08-24 06:56] LABS: C Reactive Protein* 2.6 mg/dL (0.5-1.0)
[2023-08-24] MEDS: SODIUM CHLORIDE 1 GM TABLET PO ×3 (08:09→17:59)
[2023-08-24] MEDS: SODIUM CHLORIDE 0.9 % (FLUSH) 10 ML SYRINGE 5 ML IVF ×2 (08:09→20:42)
[2023-08-24 09:40] LABS: Procalcitonin* 0.75 ng/mL (<0.50)
--- NOTE | 2023-08-24 10:24 | P.IMPN_ITS ---
Progress Note: A&P Assessment and plan (1) Acute hyponatremia: Problem details: - 10 days prior to admission had a sodium of 130. Two weeks prior to admission had a sodium of 134. On admission sodium is 119. - 128 on 08/24 day after admission. Fluid restriction and sodium tabs. No IV fluids. No hypertonic saline pain - given KIM - will hydrate with NS - am of 08/24 Status: Acute (2) Fever: Problem details: -etiology unclear. Chest abdomen pelvis CT and right upper quadrant ultrasound reassuring. Cultures are pending. On broad-spectrum antibiotics. -white blood cell count on admission 15.4, down to 12.8 -procalcitonin is elevated but flat. C reactive protein is mildly elevated -blood culture x2 sets are negative to date. Urine culture is negative. -resp screen neg -has some mild back pain, unclear significance. will add PSA. Status: Acute (3) KIM (acute kidney injury): Problem details: - Admission creatinine, 1.4 --> 1.6 on 08/24 - previous range 0.9 (08/07/23) to 1.16 (Jun 10) - fluid bolus and maintenance IV fluids - no longer NPO as of 08/24 Status: Acute (4) Loss of appetite: Problem details: - etiology unclear. hyponatremia? RUQ us and CT CAP reassuring. - gastritis? angina equivalent? malignancy? still broad differential. Status: Acute (5) Left bundle branch block: Problem details: -identified in June of 2023 during a stress echo exam. On admission EKG. Status: Acute (6) Weight loss: Problem details: -10 lb weight loss since 06/10 Status: Acute (7) Weakness: Problem details: - multifactorial - recent GI bleed (no transfusion), recent influenza A, recent hyponatremia Status: Acute (8) Exertional chest pain: Problem details: - recent positive stress echo, but achieved 10 Mets. Symptomatic during exam. Developed left bundle branch block. - troponin neg on admission. Tele reveals LBBB. - Has outpatient follow-up with Cardiology at the end of August Status: Acute (9) Hypocalcemia: Problem details: mild, oral replacement Status: Acute (10) GI bleeding: Problem details: - 2 weeks ago had dark red blood in his stool. Resolved after couple days. - Right upper quadrant ultrasound 08/24/23 - concern regarding safety given recent pos stress echo Status: Acute Subjective Date Seen: 08/24/23 Interval history: Daily Progress Note - Hospital Medicine Day #: 2 CC: Fever, Hyponatremia, weakness, anorexia with weight loss, recent influenza a and GI blood loss. OVERNIGHT UPDATES FROM STAFF & MED, LAB, IMAGING UPDATES -hemoglobin stable. Sodium is up to 128. Right upper quadrant ultrasound negative. CT abdomen pelvis negative. Started having fever last night. Now on Zosyn and vanc. T-max this morning 99.4, T-max last night 101.4. -has developed KIM overnight. baseline creatine is 0.9, 1.4 on admission - 1.6 this am. -patient is frustrated at mixed messaging regarding his EGD. -he has had a positive stress echo on July 02. While he had good exercise duration and achieved over 10 Mets he did develop left branch block and some wall motion abnormalities. This was diagnosed as a positive stress test for ischemia. Thus the EGD has not been accomplished as an outpatient. -PCP and cardiology discussed that achieving 10 Mets creates a low risk situation for a simple endoscopy -competing priorities - if he gets a stent or cardiac intervention then DAPT would prevent or make more risky and GI biopsies Objective: Flat affect Vitals: see above Lungs: Clear. Cardiac: S1S2. Abdomen: Soft Disposition/Potential discharge - Likely to return to previous living situation. Today I spent 50minutes seeing the patient, reviewing Expanse and EPIC notes/diagnostics, discussing the care plan with our care time that includes social work, PT/OT, pharmacy, RT, fpc and documenting my impressions and plan in the medical record. Exam Const: Vital Signs, click to edit/add: Vital Signs - 24 hr 08/23/23 10:30 08/23/23 11:09 08/23/23 11:15 Temperature Pulse Rate 95 100 Pulse Rate [Right Pulse Oximeter] Pulse Rate [Right Radial] Respiratory Rate Blood Pressure Blood Pressure [Ri ght Arm] Pulse Oximetry 97 97 94 Oxygen Delivery Me thod 08/23/23 11:22 08/23/23 11:30 08/23/23 11:42 Temperature Pulse Rate 93 92 90 Pulse Rate [Right Pulse Oximeter] Pulse Rate [Right Radial] Respiratory Rate Blood Pressure 100/67 101/61 Blood Pressure [Ri ght Arm] Pulse Oximetry 93 94 89 Oxygen Delivery Me thod 08/23/23 11:45 08/23/23 12:00 08/23/23 12:02 Temperature Pulse Rate 94 103 H 99 Pulse Rate [Right Pulse Oximeter] Pulse Rate [Right Radial] Respiratory Rate Blood Pressure 99/62 Blood Pressure [Ri ght Arm] Pulse Oximetry 90 95 96 [facility] 12:16 08/23/23 12:22 08/23/23 12:23 Temperature Pulse Rate 102 H 101 H 103 H Pulse Rate [Right Pulse Oximeter] Pulse Rate [Right Radial] Respiratory Rate Blood Pressure 100/64 Blood Pressure [Ri ght Arm] Pulse Oximetry 99 97 97 [facility] 08/23/23 12:30 08/23/23 12:44 08/23/23 12:45 Temperature Pulse Rate 102 H 100 100 Pulse Rate [Right Pulse Oximeter] Pulse Rate [Right Radial] Respiratory Rate Blood Pressure 114/71 Blood Pressure [Ri ght Arm] Pulse Oximetry 97 97 96 Oxygen Delivery [facility] 08/23/23 13:00 08/23/23 13:02 08/23/23 13:15 Temperature Pulse Rate 101 H 102 H 102 H Pulse Rate [Right Pulse Oximeter] Pulse Rate [Right Radial] Respiratory Rate Blood Pressure 96/68 Blood Pressure [Ri ght Arm] Pulse Oximetry 98 96 97 Oxygen Delivery [facility] 08/23/23 13:22 08/23/23 13:30 08/23/23 13:52 Temperature 98.1 F Pulse Rate 103 H 104 H Pulse Rate [Right Pulse Oximeter] 97 Pulse Rate [Right Radial] Respiratory Rate Blood Pressure 100/65 Blood Pressure [Ri ght Arm] 101/61 Pulse Oximetry 95 95 95 Oxygen Delivery [facility] Room Air 08/23/23 13:52 08/23/23 19:00 08/23/23 22:16 Temperature 98.6 F 101.4 F H Pulse Rate Pulse Rate [Right Pulse Oximeter] 122 H Pulse Rate [Right Radial] Respiratory Rate 14 20 Blood Pressure Blood Pressure [Ri ght Arm] 119/86 Pulse Oximetry 95 96 Oxygen Delivery [facility] Room Air Room Air 08/23/23 23:00 08/23/23 23:00 08/24/23 01:53 Temperature 100.0 F H 100.0 F H Pulse Rate Pulse Rate [Right Pulse Oximeter] 124 H 124 H Pulse Rate [Right Radial] Respiratory Rate 20 18 Blood Pressure Blood Pressure [Ri ght Arm] 92/65 Pulse Oximetry 95 Oxygen Delivery Me thod Room Air 08/24/23 03:00 08/24/23 08:04 Temperature 97.5 F L 99.4 F Pulse Rate Pulse Rate [Right Pulse Oximeter] 97 Pulse Rate [Right Radial] 106 H Respiratory Rate 20 16 Blood Pressure Blood Pressure [Ri ght Arm] 114/72 103/66 Pulse Oximetry 100 97 Oxygen Delivery Me thod Room Air Room Air Labs Labs: Laboratory Results - last 24 hr 08/23/23 08/23/23 08/23/23 10:31 10:49 14:52 WBC 15.41 H RBC 4.48 Hgb 11.2 L Hct 34.1 L MCV 76 L MCH 25 L MCHC 33 RDW Coeff of Les 15.8 H Plt Count 300 Neut % (Auto) 33.9 L Lymph % (Auto) 56.5 H [place] % (Auto) 6.9 Eos % (Auto) 0.5 Baso % (Auto) 0.3 Neut # (Auto) 5.20 Lymph # (Auto) 8.70 H [place] # (Auto) 1.10 H Eos # (Auto) 0.10 Baso # (Auto) 0.00 Abs Immat Gran (auto) 0.30 Imm/Tot Granulo (auto) 1.9 Diff Slide Review Acceptable Review INR 1.20 H APTT 43 H Sodium 119 L* Potassium 3.6 Chloride 91 L Carbon Dioxide 20 Anion Gap 8 BUN 21 Creatinine 1.4 Estimated Creat Clear 59.45 Estimated GFR 56 Glucose 116 H Lactate 1.5 Calcium 7.6 L Phosphorus 4.5 Iron 41 L TIBC 214 L % Saturation 19 L Total Bilirubin 0.5 Direct Bilirubin 0.2 AST 64 H ALT 41 Alkaline Phosphatase 69 Troponin I 0.01 C-Reactive Protein 2.4 H NT-Pro-B Natriuret Pep 540 Total Protein 6.7 Albumin 3.1 L Lipase 132 Procalcitonin 0.74 H TSH 5.320 H Free T4 1.65 Urine Color Yellow Urine Appearance Clear Urine pH 6.0 Ur Specific [place] 1.010 Urine Protein 1+ A Urine Glucose (UA) Negative Urine Ketones Negative Urine Blood Trace-intact A Urine Nitrite Negative Urine Bilirubin Negative Urine Urobilinogen 0.2 Ur Leukocyte Esterase Negative Urine RBC 0-2 Urine WBC 0-2 Ur Squamous Epith Cells Few Urine Bacteria Few A SARS-CoV-2 (PCR) Negative SARS-CoV-2 Influenza Type A (PCR) Negative PCR FLU A Influenza Type B (PCR) Negative PCR FLU B RSV (PCR) Negative PCR RSV Lab Acknowledgement Test Added 08/23/23 08/23/23 08/23/23 14:53 15:27 20:05 WBC RBC Hgb Hct MCV MCH MCHC RDW Coeff of Les Plt Count Neut % (Auto) Lymph % (Auto) [place] % (Auto) Eos % (Auto) Baso % (Auto) Neut # (Auto) Lymph # (Auto) [place] # (Auto) Eos # (Auto) Baso # (Auto) Abs Immat Gran (auto) Imm/Tot Granulo (auto) Diff Slide Review INR APTT Sodium 122 L* Potassium Chloride Carbon Dioxide Anion Gap BUN Creatinine Estimated Creat Clear Estimated GFR Glucose Lactate Calcium Phosphorus Iron TIBC % Saturation Total Bilirubin Direct Bilirubin AST ALT Alkaline Phosphatase Troponin I C-Reactive Protein NT-Pro-B Natriuret Pep Total Protein Albumin Lipase Procalcitonin TSH Free T4 Urine Color Urine Appearance Urine pH Ur Specific [place] Urine Protein Urine Glucose (UA) Urine Ketones Urine Blood Urine Nitrite Urine Bilirubin Urine Urobilinogen Ur Leukocyte Esterase Urine RBC Urine WBC Ur Squamous Epith Cells Urine Bacteria SARS-CoV-2 (PCR) Influenza Type A (PCR) Influenza Type B (PCR) RSV (PCR) Lab Acknowledgement Test Added Test Added 08/23/23 08/24/23 08/24/23 22:35 05:54 09:07 WBC 12.86 H RBC 4.42 Hgb 11.2 L Hct 34.2 L MCV 77 L MCH 25 L MCHC 33 RDW Coeff of Les 16.0 H Plt Count 284 Neut % (Auto) 35.1 L Lymph % (Auto) 55.7 H [place] % (Auto) 6.6 Eos % (Auto) 0.8 Baso % (Auto) 0.2 Neut # (Auto) 4.50 Lymph # (Auto) 7.20 H [place] # (Auto) 0.80 Eos # (Auto) 0.10 Baso # (Auto) 0.00 Abs Immat Gran (auto) 0.20 Imm/Tot Granulo (auto) 1.6 Diff Slide Review INR APTT Sodium 128 L Potassium 3.6 Chloride 97 Carbon Dioxide 21 Anion Gap 10 BUN 21 Creatinine 1.6 H Estimated Creat Clear 52.02 Estimated GFR 48 Glucose 107 Lactate 1.7 Calcium 8.0 L Phosphorus Iron TIBC % Saturation Total Bilirubin Direct Bilirubin AST ALT Alkaline Phosphatase Troponin I C-Reactive Protein 2.6 H NT-Pro-B Natriuret Pep Total Protein Albumin Lipase Procalcitonin 0.74 H 0.75 H TSH Free T4 Urine Color Urine Appearance Urine pH Ur Specific [place] Urine Protein Urine Glucose (UA) Urine Ketones Urine Blood Urine Nitrite Urine Bilirubin Urine Urobilinogen Ur Leukocyte Esterase Urine RBC Urine WBC Ur Squamous Epith Cells Urine Bacteria SARS-CoV-2 (PCR) Influenza Type A (PCR) Influenza Type B (PCR) RSV (PCR) Lab Acknowledgement Test Added
[2023-08-24] MEDS: 0.9 % SODIUM CHLORIDE 1000 ml 1,000 ML 500 ML IV (11:03)
[2023-08-24 11:31] LABS: Troponin I* 0.02 ng/mL (0.01-0.04)
[2023-08-24] MEDS: TRAMADOL HCL 50 MG TABLET PO ×2 (11:39→23:28)
[2023-08-24 12:55] LABS: PSA Screen* 1.03 ng/mL (0.10-4.00)
[2023-08-24] MEDS: 0.9 % SODIUM CHLORIDE 1000 ml 1,000 ML 125 ML IV ×2 (13:34→23:35)
--- NOTE | 2023-08-24 14:29 | PC.NURSE ---
End of shift note: Patient alert and oriented, very pleasant. Continues to feel weak and very thirsty. Had an abdominal ultrasound this morning. Was supposed to go for an EGD this morning as well but was not cleared by anesthesia so this was not completed. Patient was placed on tele this afternoon. Shows sinus tachycardia. Patient appears to be dehydrated. 1L bolus given and has fluids running at 125ml/hr now. Voiding without difficulty. Has an ileostomy pouch that he catheterizes every 3-4 hours. Measuring volumes as of today. Did have a blood clot the second time he catheterized himself. Notified MD. She stated to continue to monitor for signs of bleeding through stoma. Temp max this shift was 99.4 orally. Gave tramadol for generalized aches and pains and this was effective. Patient denies nausea and vomiting but appetite is still poor. Is on a regular diet with a 1500ml fluid restriction. Lung sounds clear. Bowel sounds active. New IV placed in right forearm as the AC was causing the pump to beep. Left the AC in place just incase. Encouraging patient to get up and ambulate but just hasn't been feeling up to it.
[2023-08-24] MEDS: FERROUS SULFATE 325 MG TABLET 650 MG PO (17:59)
[2023-08-24] MEDS: ONDANSETRON 2 MG/ML inj 4 MG IVP (18:33)
--- NOTE | 2023-08-24 23:29 | PC.NURSE ---
End of Shift: Patient pleasant and cooperative. Afebrile. Denies pain. Up with SBA. Walking in hallway x1. C/o nausea after oral iron and PRN Zofran given x1. BM x4, first stool was rust colored, second was red/brown and last two were green/brown, updated MD. Tele showing sinus tach
[2023-08-25] VITALS (9 sets, daily range): BP systolic 88–126; BP diastolic 56–68; PULSE 84–103; RESP 16; TEMP 36.4–37.4; O2SAT 93–96
[2023-08-25] MEDS: PIPERACILLIN/TAZOBACTAM 3.375 GM in 0.9 % SODIUM CHLORIDE Mini-bag 100 ML IVPB ×2 (02:30→08:49)
[2023-08-25] MEDS: COSYNTROPIN 0.25 MG VIAL IVP (05:59)
--- NOTE | 2023-08-25 06:16 | PC.NURSE ---
End of shift report [id number]: alert and oriented x 4. Pain reported to neck, mid and low back, pain well managed with PRN medications and positioning. 3 liquid stools this shift, dark green/brown in color, patient second bowel movement had quarter size amount of bright red blood in it. Coordinated with lab for adrenal function test, lab draw for baseline completed at 0600, cosyntropin administered IV at 0602, confirmed with [facility] quality assurance/r&d lab technician, that next lab will be drawn at 0632 and then at 0702, verbal confirmation of order and times. Denied any nausea overnight.
[2023-08-25 06:30] LABS: Basophils Percent Auto 0.2 % (0.0-3.0); Eosinophils Percent Auto 0.6 % (0.0-7.0); Hematocrit 31.8 % (37.0-53.0); Immature Granulocytes Pct Auto 0.9 %; Lymphocytes Percent Auto 68.2 % (20-44); Mean Corpuscular HGB Conc 31 gm/dL (32-36); Mean Corpuscular Hemoglobin 25 pg (26-34); Mean Corpuscular Volume 80 fL (80-100); Monocytes Percent Auto 5.7 % (0.0-11.0); Neutrophils Percent Auto 24.4 % (42.0-72.0); Platelet Count* 313 K/uL (140-440); RDW Coefficient of Variation % 16.8 % (11.5-15.5); Red Blood Count 3.96 m/uL (4.30-5.90); White Blood Count* 21.79 K/uL (4.50-11.00)
[2023-08-25 07:03] LABS: Chloride* 103 mmol/L (96-114); Sodium* 132 mmol/L (135-149)
[2023-08-25 07:04] LABS: Potassium* 3.5 mmol/L (3.6-5.1)
[2023-08-25 07:06] LABS: Anion Gap 8 mEq/L (7-15); Carbon Dioxide* 21 mmol/L (20-32); Creatinine* 1.9 mg/dL (0.5-1.5); Estimated Glomerular Filt Rate 39 ml/min
[2023-08-25 07:07] LABS: Blood Urea Nitrogen* 19 mg/dL (7-30); Calcium* 7.4 mg/dL (8.4-10.6); Glucose* 102 mg/dL (60-115)
[2023-08-25 07:10] LABS: C Reactive Protein* 2.5 mg/dL (0.5-1.0)
[2023-08-25 07:20] LABS: Procalcitonin* 0.65 ng/mL (<0.50)
[2023-08-25 07:29] LABS: Slide Review Reflex No
[2023-08-25] MEDS: 0.9 % SODIUM CHLORIDE 1000 ml 1,000 ML 125 ML IV (08:48)
[2023-08-25] MEDS: SODIUM CHLORIDE 0.9 % (FLUSH) 10 ML SYRINGE 5 ML IVF ×2 (08:49→20:19)
[2023-08-25] MEDS: SODIUM CHLORIDE 1 GM TABLET PO ×3 (08:49→18:45)
[2023-08-25] MEDS: PANTOPRAZOLE SODIUM 40 MG INJ IVP (08:49)
--- NOTE | 2023-08-25 09:15 | PM.IMPN1 ---
Progress Note: A&P Assessment and plan (1) Acute hyponatremia: Problem details: 119 --> 132 today has NS running at 75cc/hr no fluid restriction salt tabs likely due to poor intake in recent weeks Status: Acute (2) GI bleeding: Problem details: - hematochezia noted from pouch 08/24, 08/25 - 2 weeks ago had dark red blood in his stool. Resolved after couple days. - Right upper quadrant ultrasound 08/24/23 - IV protonix - EGD planned - H Pylori stool antigen ordered Status: Acute (3) ATN (acute tubular necrosis): Problem details: - Admission creatinine, 1.4 --> 1.6 --> 1.9 - previous range 0.9 (08/07/23) to 1.16 (Jun 10) - 2+ protein and sediment on UA from 08/24 - normal renal u/s 08/24 - Vanc/Zosyn on hold - ATN from these meds? HOLD 08/25 AM Status: Acute (4) Fever: Problem details: -etiology unclear. Chest abdomen pelvis CT and right upper quadrant ultrasound reassuring. Cultures are pending. On broad-spectrum antibiotics until am of 08/25 -ATN likely developing from abx -white blood cell count on admission 15.4 -- downtrended to 12.8, today 21.8K but mostly lymphocytes. -procalcitonin is slowly downtrending. C reactive protein is mildly elevated -blood culture x2 sets are negative to date. Urine culture is negative. -resp screen neg -has some mild back pain, unclear significance. PSA normal. -ID consult Status: Acute (5) Exertional chest pain: Problem details: - recent positive stress echo, but achieved 10 Mets. Symptomatic during exam. Developed left bundle branch block. - troponin neg on admission. Tele reveals LBBB. - Has outpatient follow-up with Cardiology at the end of August Status: Acute (6) Left bundle branch block: Problem details: -identified in June of 2023 during a stress echo exam. On admission EKG. Status: Acute (7) Ulcerative colitis: Problem details: - status post colectomy in 1977 - h/o of SBO and revision of ostomy in 1993 - no treatment for UC since original surgery in late Status: Acute (8) Loss of appetite: Problem details: - etiology unclear. hyponatremia? RUQ us and CT CAP reassuring. - gastritis? angina equivalent? malignancy? still broad differential. - endoscopy planned for 08/26 Status: Acute (9) Weight loss: Problem details: -10 lb weight loss since 06/10 Status: Acute (10) Weakness: Problem details: - multifactorial - recent GI bleed (no transfusion), recent influenza A, recent hyponatremia - ACTH Stim test done 08/25 - awaiting results Status: Acute (11) Hypocalcemia: Problem details: mild, oral replacement Status: Acute Subjective Date Seen: 08/25/23 Interval history: Daily Progress Note - Hospital Medicine Day #: 3 CC: Fever/leukocytosis, Hyponatremia, weakness, anorexia with weight loss, recent influenza a and GI blood loss. OVERNIGHT UPDATES FROM STAFF & MED, LAB, IMAGING UPDATES -feels better this morning. less nausea. more energy. Hemoglobin is down to 10.0. WBCs up to 21.8 Sodium is up to 132. Potassium is down to 3.5. Creatinine is up to 1.9. CRP stable at 2.5, procalcitonin is down trending to 0.65 -ACTH stim test completed the morning of 08/25/2023, cortisol results are pending -has developed ATN likely from his antibiotics. baseline creatine is 0.9, 1.4 on admission --> 1.6 -->1.9. 2+ protein, +sediment. normal u/s -patient is frustrated at mixed messaging regarding his EGD. -he has had a positive stress echo on July 02. While he had good exercise duration and achieved over 10 Mets he did develop left branch block and some wall motion abnormalities. This was diagnosed as a positive stress test for ischemia. Thus the EGD has not been accomplished as an outpatient. -PCP and cardiology discussed that achieving 10 Mets creates a low risk situation for a simple endoscopy -competing priorities - if he gets a stent or cardiac intervention then DAPT would prevent or make more risky and GI biopsies Objective: Flat affect Vitals: see above Lungs: Clear. Cardiac: S1S2. Abdomen: Soft Summary plan: 1. Hold antibiotics 2/2 ATN. Discuss with ID 2. ACTH stim test pending 3. EGD in am 4. H Pylori AG stool pending 5. Consider Lumbar CT for back pain and source of infection Disposition/Potential discharge - Likely to return to previous living situation. Today I spent 50minutes seeing the patient, reviewing Expanse and EPIC notes/diagnostics, discussing the care plan with our care time that includes social work, PT/OT, pharmacy, RT, correction and documenting my impressions and plan in the medical record. Exam Const: Vital Signs, click to edit/add: Vital Signs - 24 hr 08/24/23 11:26 08/24/23 12:33 08/24/23 13:44 Temperature 98.1 F 97.7 F Pulse Rate 100 Pulse Rate [Right Pulse Oximeter] Pulse Rate [Right Radial] 97 Respiratory Rate 16 Blood Pressure [Le ft Arm] Blood Pressure [Ri ght Arm] 99/67 Pulse Oximetry 93 Oxygen Delivery Me thod Room Air 08/24/23 15:00 08/24/23 15:00 08/24/23 15:00 Temperature 98.1 F Pulse Rate 106 H Pulse Rate [Right Pulse Oximeter] 98 98 Pulse Rate [Right Radial] Respiratory Rate 16 16 Blood Pressure [Le ft Arm] 103/63 Blood Pressure [Ri ght Arm] Pulse Oximetry 98 Oxygen Delivery Me thod Room Air 08/24/23 19:00 08/24/23 23:00 08/24/23 23:00 Temperature 98.2 F 98.8 F Pulse Rate Pulse Rate [Right Pulse Oximeter] 104 H Pulse Rate [Right Radial] 104 H 104 H Respiratory Rate 16 18 18 Blood Pressure [Le ft Arm] 99/67 97/59 L Blood Pressure [Ri ght Arm] Pulse Oximetry 97 95 Oxygen Delivery Me thod Room Air Room Air 08/24/23 23:00 08/25/23 03:00 08/25/23 07:00 Temperature 99.4 F 98.1 F Pulse Rate 107 H Pulse Rate [Right Pulse Oximeter] 98 91 Pulse Rate [Right Radial] Respiratory Rate 16 16 Blood Pressure [Le ft Arm] Blood Pressure [Ri ght Arm] 101/65 99/68 Pulse Oximetry 94 96 Oxygen Delivery Me thod Room Air Room Air Labs Labs: Laboratory Results - last 24 hr 08/24/23 08/24/23 08/24/23 05:54 09:07 11:07 WBC RBC Hgb Hct MCV MCH MCHC RDW Coeff of Les Plt Count Neut % (Auto) Lymph % (Auto) [place] % (Auto) Eos % (Auto) Baso % (Auto) Neut # (Auto) Lymph # (Auto) [place] # (Auto) Eos # (Auto) Baso # (Auto) Abs Immat Gran (auto) Imm/Tot Granulo (auto) Sodium Potassium Chloride Carbon Dioxide Anion Gap BUN Creatinine Estimated Creat Clear Estimated GFR Glucose Calcium Troponin I 0.02 C-Reactive Protein PSA Screen 1.03 Procalcitonin 0.75 H Lab Acknowledgement Test Added Test Added Test Added 08/25/23 06:00 WBC 21.79 H RBC 3.96 L Hgb 10.0 L Hct 31.8 L MCV 80 MCH 25 L MCHC 31 L RDW Coeff of Les 16.8 H Plt Count 313 Neut % (Auto) 24.4 L Lymph % (Auto) 68.2 H [place] % (Auto) 5.7 Eos % (Auto) 0.6 Baso % (Auto) 0.2 Neut # (Auto) 5.30 Lymph # (Auto) 14.90 H [place] # (Auto) 1.20 H Eos # (Auto) 0.10 Baso # (Auto) 0.00 Abs Immat Gran (auto) 0.20 Imm/Tot Granulo (auto) 0.9 Sodium 132 L Potassium 3.5 L Chloride 103 Carbon Dioxide 21 Anion Gap 8 BUN 19 Creatinine 1.9 H Estimated Creat Clear 43.80 Estimated GFR 39 Glucose 102 Calcium 7.4 L Troponin I C-Reactive Protein 2.5 H PSA Screen Procalcitonin 0.65 H Lab Acknowledgement
[2023-08-25 09:26] LABS: Appearance Urine Clear (Clear); Bilirubin Urine Negative (Negative); Blood Urine Trace-intact (Negative); Color Urine Yellow (Yellow); Glucose Urine Negative (Negative); Ketones Urine Negative (Negative); Leukocyte Esterase Urine Negative (Negative); Nitrite Urine Negative (Negative); Protein Urine 2+ (Negative); Urobilinogen Urine 0.2 (0.2-1.0); pH Urine 5.5 (5.0-8.5)
[2023-08-25 10:00] LABS: RBC Urine 0-2 (0-2)
[2023-08-25 10:01] LABS: Amorphous Sediment Urine Many; Bacteria Urine Few; Squamous Epithelial Cell Urine Few (None-Few)
--- NOTE | 2023-08-25 10:15 | CRLHL7_ITS ---
For Patients: As a result of the Century Cures Act, medical imaging exams and procedure reports are released immediately into your electronic medical record. You may view this report before your referring provider. If you have questions, please contact your health care provider. CLINICAL HISTORY: Acute kidney injury COMPARISON: CT 08/24/2023 TECHNIQUE: Rogers scale and color Doppler images were acquired of the kidneys. FINDINGS: Sonographic images reveal a symmetric appearance of the kidneys. There is no evidence of hydronephrosis, mass or calculus. The right kidney measures 12.6cm in length and the left kidney measures 12.9cm in length. The renal cortex appears of normal thickness. No abnormal vascularity. IMPRESSION: Normal renal ultrasound. Dictated by Antonio Zaldivar MD @ 08/25/2023 10:46:05 AM (Electronically Signed)
--- NOTE | 2023-08-25 14:02 | CRLHL7_ITS ---
For Patients: As a result of the Century Cures Act, medical imaging exams and procedure reports are released immediately into your electronic medical record. You may view this report before your referring provider. If you have questions, please contact your health care provider. Indication: Looking for abdominal infection causing hematochezia Technique: Multiplanar multisequence MR imaging of the abdomen was obtained before and after the intravenous administration of 20 mL Dotarem. The MRCP protocol was utilized at the ordering physician`s request. Comparison: Renal ultrasound 08/25/2023, ultrasound abdomen 08/24/2023, CT abdomen pelvis 08/24/2023 Findings: Respiratory motion artifact throughout the exam. Trace bilateral pleural effusions. Mild diffuse hepatic steatosis. No liver mass. Patent hepatic vasculature. The gallbladder is normal. The bile ducts are normal. The pancreas and pancreatic duct are normal. The spleen is at the upper limits of normal in size and measure 6 cm in thickness and 14.1 cm in length. Homogeneous splenic enhancement without masses. Splenic vasculature is patent. The adrenal glands are normal. Small bilateral renal simple cysts. The kidneys are not fully included on every sequence, no solid mass seen. Mildly prominent right lower quadrant mesenteric lymph nodes. No upper abdominal ascites. 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 Mild soft tissue anasarca. Impression: 1. No new findings on MRCP. 2. Partially included abnormal appearing bowel in the pelvis that corresponds to the linda rectum and fistula seen on recent CT. Could certainly be contributing to hematochezia. Dictated by Marlys Cobb MD @ 08/25/2023 6:38:54 PM (Electronically Signed)
--- NOTE | 2023-08-25 15:33 | W.PM.INFD_ITS ---
Consultation Information Consultation Information Consultation Statement: This patient recommendation is based on a telemedicine consult request which was completed asynchronously through chart review and information provided by the primary physician. The patient was not seen or examined today. The evaluation is consultative in nature and all patient care and treatment decisions can either be accepted or rejected by the patient's primary hospital-based treating physician using their own independent medical judgment for their patient. Retrieval Specialist contact information: Please call ID [facility] [phone] HPI - Infectious Disease History of Present Illness History of Present Illness: This a 63 y/o male with history of colectomy for ulcerative colitis in 1977, s/p remote ileostomy takedown and surgically placed internal pouch in 1994, currently on no meds for UC, who presents with c/o of >1 month of weakness, low appetite and lately nausea w/o vomiting. As per notes, the patient was hospitalized x bronchitis about 1 month ago then in Mid he with influenza and was treated symptomatically after which he started to have low appetite. August 06 he was admitted to the hospital with a possible small- bowel obstruction. At that time he was having bleeding from his internal pouch. The bleeding stopped after a day or 2 but then he developed diarrhea and was diagnosed with pouchitis on August 11. He was treated with Cipro and Flagyl and finished that treatment 3 days ago. His abdominal pain and diarrhea and ble eding have all stopped. During that last part of July he also reported having no appetite. They concluded he did not have a small-bowel obstruction. He was seen in May with some chest pain. He notes that he has had exertional dyspnea and chest pain for some time. He was found to have a left bundle branch block of unknown duration. He had a stress echo test In June which was unremarkable. The results were somewhat indeterminate due to a small wall motion abnormality possibly related to his left bundle branch block. On August [address] of his chest which showed no PE. Apparently pt also with SOB and GAN in May, normal PFTs in May, stress echo in Jun showed LBBB and small septal wall motion abnl. Per ED note, the patient presented on 08/23/23 to [facility] with c/o ongoing weakness for the last 3-4 months, he has been to the emergency room twice now, admitted once for what sounds like pouchitis and possibly a little bit of bleeding from his ostomy. Finished a course of Cipro and Flagyl last week, and just really has not recovered. No c/o vomiting but has some nausea, anorexia, weight loss and weakness. This started approximately 3-4 months ago, any were having him see Cardiology. They actually had an appointment to get scoped at [facility] but they would not do it in like fill without a Cardiology consult. No reports of subjective fevers or chills at home but spikes a fever to 101.4 in the hospital, no chest pain, abdominal pain, or back pain, no significant respiratory symptoms. Initial VS 105/69, HR 98, RR 18, O2 sat 97% RA, Temp 98.0, initial labs c/w leukocytosis WBC 15.4K, PMN 33.9%, Hg 11.2, Hct 34, plat count 300K, serum Cr 1.4, AST 64, ALT 41, T bili 0.5, CRP 2.4, Procal 0.74, lipase WNL, limited RVP negative for Flu/RSV/COVID-19. Pt found to have hyponatremia, serum Na 119 on admission?132 today, was managed w fluid restriction and sodium tabs. Also with KIM Sr creatinine 1.4 --> 1.6 --> 1.9, pt noted to have hematochezia from pouch 08/24 and 08/25, RUQ US unrevealing, EGD planned, on IV protonix, while in the hospital he spikes a fever to 11.4 and his WBC initially went down then up trending 14.5>12.8<21.8K, UA negative, blood and urine Cx were sent, pt was started on empiric zosyn + IV vancomycin. Blood cx remain NGTD. Urine cx <50K mixed gram positive odessa, CXR clear lungs, head CT no acute findings. Renal US normal. CT chest/a/p: no acute findings within chest, postsurgical changes of previous rectal resection with creation of a neorectum in a right lower quadrant ostomy. 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 ?Prominent right lower quadrant lymph nodes, likely reactive. No bowel obstruction. No clear infectious source identified, renal function worsening, primary team stopped systemic IV Abx and tele ID was consulted on 08/25/23 for recommendation Re further infectious work up and management. [facility] Medical History (Updated 08/25/23 @ 13:32 by Nimco Antunez MD) Patellar tendinitis, right knee ?M76.51 - Patellar tendinitis, right knee (ICD-10) Osteoarthritis of knees, bilateral ?M17.0 - Bilateral primary osteoarthritis of knee (ICD-10) Pouchitis ?K91.850 - Pouchitis (ICD-10) GI bleeding ?K92.2 - Gastrointestinal hemorrhage, unspecified (ICD-10) Exertional chest pain ?R07.9 - Chest pain, unspecified (ICD-10) Abnormal cardiovascular stress test ?R94.39 - Abnormal result of other cardiovascular function study (ICD-10) Small bowel obstruction ?K56.609 - Unspecified intestinal obstruction, unspecified as to partial versus complete obstruction (ICD-10) Skin problem ?L98.9 - Disorder of the skin and subcutaneous tissue, unspecified (ICD-10) Ulcerative colitis ?K51.90 - Ulcerative colitis, unspecified, without complications (ICD-10) Surgical History (Updated 08/24/23 @ 10:51 by Nimco Antunez MD) Status post medial meniscectomy of right knee (04/22/22) ?Z98.890 - Other specified postprocedural states (ICD-10) H/O colectomy ?Z90.49 - Acquired absence of other specified parts of digestive tract (ICD- 10) Family History Mother Breast cancer Social History (Updated 08/23/23 @ 19:01 by Skyler العلي MD) Narrative: he lives with his Cleopatra. She is healthcare power of attorney lawyer. Code status is full. Does not smoke. He drinks a few glasses of wine per week. What is your current living situation?: I presently have a place to live Problems where you live: no known problems Problems where you live details: NA In the past 12 months, utilities in danger of being shut off: no In past 12 months, lack of transportation kept you from medical appts, meetings, work, or getting things needed for daily living: no In the past 12 mos, have been you worried that your food would run out before you had money to buy more?: never true In the past 12 mos, the food you bought just didn't last and you didn't have money to buy more?: never true Highest level of school completed/degree received: some college, no degree Smoking Status: Never smoker Do you use any of these nicotine containing products: None How often do you have a drink containing alcohol: monthly or less Alcohol type: beer and wine How many standard drinks containing alcohol do you have on a typical day: 1 or 2 How often do you have six or more drinks on one occasion: Never AUDIT-C Alcohol total score: 1 Non-prescribed substance use: denies use Caffeine: No How often does anyone, including family, friends and others, physically hurt you : never How often does anyone, including family, friends and others, insult or talk down to you: never How often does anyone, including family, friends and others, threaten you with harm: never How often does anyone, including family, friends and others, scream or curse at you: never service: No Home Medications and Allergies Home Medications and Allergies Inpatient Medications: Active Medications Generic Name Dose Route Start Last Admin Trade Name Freq PRN Reason Stop Dose Admin Acetaminophen 650 mg 08/23/23 14:41 08/23/23 22:16 Acetaminophen 325 Mg Tablet PO 650 mg Q4H PRN Administration Calcium Carbonate 1 tab 08/23/23 21:00 08/25/23 08:49 Calcium Carbonate/Vitamin D3 (500mg/5mcg) Tablet PO 1 tab BID DILLAN Administration Calcium Carbonate 500 mg 08/23/23 18:40 08/23/23 19:42 Calcium Carbonate 500 Mg Chew PO 500 mg Q4H PRN Administration gerd symptoms Ferrous Sulfate 650 mg 08/24/23 18:00 08/24/23 17:59 Ferrous Sulfate 325 Mg Tablet PO 650 mg Q48H DILLAN Administration Piperacillin Sod/Tazobactam 100 mls @ 200 mls/hr 08/24/23 02:00 08/25/23 08:49 Sod 3.375 gm/ Sodium Chloride IVPB 200 mls/hr Q6H DILLAN Administration Vancomycin HCl 1,500 mg/ 515 mls @ 343.333 mls/hr 08/25/23 15:00 Sodium Chloride IVPB Q24H DILLAN Protocol Sodium Chloride 1,000 mls @ 75 mls/hr 08/25/23 13:21 0.9 % Sodium Chloride 1000 Ml IV .[id number] DILLAN Lidocaine/Aluminum/Magnesium/Simeth 15 ml 08/23/23 18:40 08/23/23 19:42 Mag Hydrox/Aluminum Hyd/Simeth 30 Ml Oral.Susp PO 15 ml QID PRN Administration Indigestion Melatonin 3 mg 08/23/23 14:41 Melatonin 3 Mg Tablet PO HS PRN Ondansetron HCl 4 mg 08/23/23 14:41 08/24/23 18:33 Ondansetron 2 Mg/Ml Inj IVP 4 mg Q4H PRN Administration Nausea Pantoprazole Sodium 40 mg 08/26/23 09:00 Pantoprazole Sodium 40 Mg Inj IVP DAILY DILLAN Sodium Chloride 5 ml 08/23/23 21:00 08/25/23 08:49 Sodium Chloride 0.9 % (Flush) 10 Ml Syringe IVF 5 ml BID DILLAN Administration Sodium Chloride 1 gm 08/23/23 18:00 08/25/23 11:22 Sodium Chloride 1 Gm Tablet PO 1 gm TIDWM DILLAN Administration Tramadol HCl 50 - 100 mg 08/24/23 11:19 08/24/23 23:28 Tramadol Hcl 50 Mg Tablet PO 100 mg Q4H PRN Administration Discontinued Medications Generic Name Dose Route Start Last Admin Trade Name Freq PRN Reason Stop Dose Admin Cosyntropin 0.25 mg 08/25/23 06:00 08/25/23 05:59 Cosyntropin 0.25 Mg Vial IVP 08/25/23 06:01 0.25 mg ONCE ONE Administration Sodium Chloride 1,000 mls @ 1,000 mls/hr 08/23/23 10:30 08/23/23 12:07 0.9 % Sodium Chloride 1000 Ml IV 08/23/23 11:29 Infused .Q1H DILLAN Infusion Vancomycin HCl 1,750 mg/ 517.5 mls @ 258.75 mls/hr 08/23/23 23:42 08/24/23 05:31 Sodium Chloride IVPB 08/23/23 23:43 Infused ONCE ONE Infusion Protocol Vancomycin HCl 1,500 mg/ 515 mls @ 257.5 mls/hr 08/24/23 15:00 08/24/23 16:56 Sodium Chloride IVPB Infused Q12H DILLAN Infusion Protocol Sodium Chloride 1,000 mls @ 500 mls/hr 08/24/23 11:00 08/24/23 13:33 0.9 % Sodium Chloride 1000 Ml IV 08/24/23 12:59 Infused .Q2H DILLAN Infusion Sodium Chloride 1,000 mls @ 125 mls/hr 08/24/23 10:53 08/25/23 08:48 0.9 % Sodium Chloride 1000 Ml IV 125 mls/hr .Q8H DILLAN Administration Iopamidol 101 ml 08/24/23 01:09 Iopamidol IV 08/24/23 01:10 .STK-MED ONE Pantoprazole Sodium 40 mg 08/25/23 08:22 08/25/23 08:49 Pantoprazole Sodium 40 Mg Inj IVP 08/25/23 08:23 40 mg ONCE ONE Administration Allergies Allergy/AdvReac Type Severity Reaction Status Date / Time No Known Drug Allergies Allergy Verified 08/23/23 09:26 Objective - Infectious Disease Objective Vital Signs: Vital Signs - 24 hr 08/24/23 19:00 08/24/23 23:00 08/24/23 23:00 Temperature 98.2 F 98.8 F Pulse Rate Pulse Rate [Right Pulse Oximeter] 104 H Pulse Rate [Right Radial] 104 H 104 H Respiratory Rate 16 18 18 Blood Pressure [Left Arm] 99/67 97/59 L Blood Pressure [Right Arm] Pulse Oximetry 97 95 Oxygen Delivery Method Room Air Room Air 08/24/23 23:00 08/25/23 03:00 08/25/23 07:00 Temperature 99.4 F 98.1 F Pulse Rate 107 H Pulse Rate [Right Pulse Oximeter] 98 91 Pulse Rate [Right Radial] Respiratory Rate 16 16 Blood Pressure [Left Arm] Blood Pressure [Right Arm] 101/65 99/68 Pulse Oximetry 94 96 Oxygen Delivery Method Room Air Room Air 08/25/23 07:00 08/25/23 11:00 08/25/23 14:24 Temperature 98.8 F 97.6 F Pulse Rate 85 Pulse Rate [Right Pulse Oximeter] 90 87 Pulse Rate [Right Radial] Respiratory Rate 16 16 Blood Pressure [Left Arm] Blood Pressure [Right Arm] 94/59 L 88/56 L Pulse Oximetry 96 95 Oxygen Delivery Method Room Air Room Air Narrative: Patient was not seen or examined. Results - Infectious Disease Results Labs: 08/23/23 10:47 Blood Blood Culture - Preliminary NO GROWTH AFTER 48 HOURS 08/23/23 10:49 Blood Blood Culture - Preliminary NO GROWTH AFTER 48 HOURS 08/25/23 Unknown Urine,Clean Catch Urine Culture - Preliminary Culture in Progress 08/23/23 Unknown Urine,Clean Catch Urine Culture - Final < 50,000 COL/ML MIXED GRAM POSITIVE ODESSA ISOLATED NO FURTHER WORKUP 08/23/23 22:35 Blood Blood Culture - Preliminary NO GROWTH AFTER 24 HOURS 08/23/23 22:30 Blood Blood Culture - Preliminary NO GROWTH AFTER 24 HOURS Laboratory Tests 08/25/23 08/25/23 08/25/23 Range/Units Unknown 14:03 09:17 WBC (4.50-11.00) K/uL RBC (4.30-5.90) m/uL Hgb (13.5-17.5) gm/dL Hct (37.0-53.0) % MCV (80-100) fL MCH (26-34) pg MCHC (32-36) gm/dL RDW Coeff of Les (11.5-15.5) % Plt Count (140-440) K/uL Neut % (Auto) (42.0-72.0) % Lymph % (Auto) (20-44) % [place] % (Auto) (0.0-11.0) % Eos % (Auto) (0.0-7.0) % Baso % (Auto) (0.0-3.0) % Neut # (Auto) (1.7-7.0) K/uL Lymph # (Auto) (0.90-2.90) K/uL [place] # (Auto) (0.00-0.90) K/UL Eos # (Auto) (0.00-0.50) K/uL Baso # (Auto) (0.00-0.30) K/uL Abs Immat Gran (auto) (0.00-0.30) K/uL Imm/Tot Granulo (auto) % Diff Slide Review (Acceptable) INR (0.91-1.10) APTT (23-33) Seconds Sodium (135-149) mmol/L Potassium (3.6-5.1) mmol/L Chloride (96-114) mmol/L Carbon Dioxide (20-32) mmol/L Anion Gap (7-15) mEq/L BUN (7-30) mg/dL Creatinine (0.5-1.5) mg/dL Estimated Creat Clear Estimated GFR ml/min Glucose (60-115) mg/dL Lactate (0.5-1.9) mmol/L Calcium (8.4-10.6) mg/dL Phosphorus (2.5-4.5) mg/dL Iron (49-181) ug/dL TIBC (261-462) ug/dL % Saturation (20-50) % Total Bilirubin (0.1-1.5) mg/dL Direct Bilirubin (0.0-0.5) mg/dL AST (12-35) U/L ALT (4-50) U/L Alkaline Phosphatase (40-150) U/L Troponin I (0.01-0.04) ng/mL C-Reactive Protein (0.5-1.0) mg/dL NT-Pro-B Natriuret Pep pg/mL Total Protein (6.0-8.3) g/dL Albumin (3.3-5.0) g/dL Lipase (23-300) U/L PSA Screen (0.10-4.00) ng/mL Procalcitonin (<0.50) ng/mL TSH (0.270-4.20) uIU/mL Free T4 (0.70-1.85) ng/dL Cortisol Cortisol 30 Minute Cortisol 60 Minute Urine Color Yellow (Yellow) Urine Appearance Clear (Clear) Urine pH 5.5 (5.0-8.5) Ur Specific [place] 1.020 (1.000-1.030) Urine Protein 2+ A (Negative) Urine Glucose (UA) Negative (Negative) Urine Ketones Negative (Negative) Urine Blood Trace-intact A (Negative) Urine Nitrite Negative (Negative) Urine Bilirubin Negative (Negative) Urine Urobilinogen 0.2 (0.2-1.0) Ur Leukocyte Esterase Negative (Negative) Urine RBC 0-2 (0-2) Urine WBC 2-5 (0-5) Ur Squamous Epith Cells Few (None-Few) Amorphous Sediment Many A (None) Urine Bacteria Few A (None) Stl C. diff Tox B Gene Pending Stl C. diff 027-NAP1-BI Pending SARS-CoV-2 (PCR) (Negative) HIV 1&2 Ab/P24 Ag 4thGn Influenza Type A (PCR) (Negative) Influenza Type B (PCR) (Negative) RSV (PCR) (Negative) Stool H. pylori Ag Pending Lab Acknowledgement Test Added 08/25/23 08/25/23 08/25/23 Range/Units 07:02 06:34 06:00 WBC 21.79 H (4.50-11.00) K/uL RBC 3.96 L (4.30-5.90) m/uL Hgb 10.0 L (13.5-17.5) gm/dL Hct 31.8 L (37.0-53.0) % MCV 80 (80-100) fL MCH 25 L (26-34) pg MCHC 31 L (32-36) gm/dL RDW Coeff of Les 16.8 H (11.5-15.5) % Plt Count 313 (140-440) K/uL Neut % (Auto) 24.4 L (42.0-72.0) % Lymph % (Auto) 68.2 H (20-44) % [place] % (Auto) 5.7 (0.0-11.0) % Eos % (Auto) 0.6 (0.0-7.0) % Baso % (Auto) 0.2 (0.0-3.0) % Neut # (Auto) 5.30 (1.7-7.0) K/uL Lymph # (Auto) 14.90 H (0.90-2.90) K/uL [place] # (Auto) 1.20 H (0.00-0.90) K/UL Eos # (Auto) 0.10 (0.00-0.50) K/uL Baso # (Auto) 0.00 (0.00-0.30) K/uL Abs Immat Gran (auto) 0.20 (0.00-0.30) K/uL Imm/Tot Granulo (auto) 0.9 % Diff Slide Review (Acceptable) INR (0.91-1.10) APTT (23-33) Seconds Sodium 132 L (135-149) mmol/L Potassium 3.5 L (3.6-5.1) mmol/L Chloride 103 (96-114) mmol/L Carbon Dioxide 21 (20-32) mmol/L Anion Gap 8 (7-15) mEq/L BUN 19 (7-30) mg/dL Creatinine 1.9 H (0.5-1.5) mg/dL Estimated Creat Clear 43.80 Estimated GFR 39 ml/min Glucose 102 (60-115) mg/dL Lactate (0.5-1.9) mmol/L Calcium 7.4 L (8.4-10.6) mg/dL Phosphorus (2.5-4.5) mg/dL Iron (49-181) ug/dL TIBC (261-462) ug/dL % Saturation (20-50) % Total Bilirubin (0.1-1.5) mg/dL Direct Bilirubin (0.0-0.5) mg/dL AST (12-35) U/L ALT (4-50) U/L Alkaline Phosphatase (40-150) U/L Troponin I (0.01-0.04) ng/mL C-Reactive Protein 2.5 H (0.5-1.0) mg/dL NT-Pro-B Natriuret Pep pg/mL Total Protein (6.0-8.3) g/dL Albumin (3.3-5.0) g/dL Lipase (23-300) U/L PSA Screen (0.10-4.00) ng/mL Procalcitonin 0.65 H (<0.50) ng/mL TSH (0.270-4.20) uIU/mL Free T4 (0.70-1.85) ng/dL Cortisol Pending Cortisol 30 Minute Pending Cortisol 60 Minute Pending Urine Color (Yellow) Urine Appearance (Clear) Urine pH (5.0-8.5) Ur Specific [place] (1.000-1.030) Urine Protein (Negative) Urine Glucose (UA) (Negative) Urine Ketones (Negative) Urine Blood (Negative) Urine Nitrite (Negative) Urine Bilirubin (Negative) Urine Urobilinogen (0.2-1.0) Ur Leukocyte Esterase (Negative) Urine RBC (0-2) Urine WBC (0-5) Ur Squamous Epith Cells (None-Few) Amorphous Sediment (None) Urine Bacteria (None) Stl C. diff Tox B Gene Stl C. diff 027-NAP1-BI SARS-CoV-2 (PCR) (Negative) HIV 1&2 Ab/P24 Ag 4thGn Pending Influenza Type A (PCR) (Negative) Influenza Type B (PCR) (Negative) RSV (PCR) (Negative) Stool H. pylori Ag Lab Acknowledgement 08/24/23 08/24/23 08/24/23 Range/Units 11:07 09:07 05:54 WBC 12.86 H (4.50-11.00) K/uL RBC 4.42 (4.30-5.90) m/uL Hgb 11.2 L (13.5-17.5) gm/dL Hct 34.2 L (37.0-53.0) % MCV 77 L (80-100) fL MCH 25 L (26-34) pg MCHC 33 (32-36) gm/dL RDW Coeff of Les 16.0 H (11.5-15.5) % Plt Count 284 (140-440) K/uL Neut % (Auto) 35.1 L (42.0-72.0) % Lymph % (Auto) 55.7 H (20-44) % [place] % (Auto) 6.6 (0.0-11.0) % Eos % (Auto) 0.8 (0.0-7.0) % Baso % (Auto) 0.2 (0.0-3.0) % Neut # (Auto) 4.50 (1.7-7.0) K/uL Lymph # (Auto) 7.20 H (0.90-2.90) K/uL [place] # (Auto) 0.80 (0.00-0.90) K/UL Eos # (Auto) 0.10 (0.00-0.50) K/uL Baso # (Auto) 0.00 (0.00-0.30) K/uL Abs Immat Gran (auto) 0.20 (0.00-0.30) K/uL Imm/Tot Granulo (auto) 1.6 % Diff Slide Review (Acceptable) INR (0.91-1.10) APTT (23-33) Seconds Sodium 128 L (135-149) mmol/L Potassium 3.6 (3.6-5.1) mmol/L Chloride 97 (96-114) mmol/L Carbon Dioxide 21 (20-32) mmol/L Anion Gap 10 (7-15) mEq/L BUN 21 (7-30) mg/dL Creatinine 1.6 H (0.5-1.5) mg/dL Estimated Creat Clear 52.02 Estimated GFR 48 ml/min Glucose 107 (60-115) mg/dL Lactate (0.5-1.9) mmol/L Calcium 8.0 L (8.4-10.6) mg/dL Phosphorus (2.5-4.5) mg/dL Iron (49-181) ug/dL TIBC (261-462) ug/dL % Saturation (20-50) % Total Bilirubin (0.1-1.5) mg/dL Direct Bilirubin (0.0-0.5) mg/dL AST (12-35) U/L ALT (4-50) U/L Alkaline Phosphatase (40-150) U/L Troponin I 0.02 (0.01-0.04) ng/mL C-Reactive Protein 2.6 H (0.5-1.0) mg/dL NT-Pro-B Natriuret Pep pg/mL Total Protein (6.0-8.3) g/dL Albumin (3.3-5.0) g/dL Lipase (23-300) U/L PSA Screen 1.03 (0.10-4.00) ng/mL Procalcitonin 0.75 H (<0.50) ng/mL TSH (0.270-4.20) uIU/mL Free T4 (0.70-1.85) ng/dL Cortisol Cortisol 30 Minute Cortisol 60 Minute Urine Color (Yellow) Urine Appearance (Clear) Urine pH (5.0-8.5) Ur Specific [place] (1.000-1.030) Urine Protein (Negative) Urine Glucose (UA) (Negative) Urine Ketones (Negative) Urine Blood (Negative) Urine Nitrite (Negative) Urine Bilirubin (Negative) Urine Urobilinogen (0.2-1.0) Ur Leukocyte Esterase (Negative) Urine RBC (0-2) Urine WBC (0-5) Ur Squamous Epith Cells (None-Few) Amorphous Sediment (None) Urine Bacteria (None) Stl C. diff Tox B Gene Stl C. diff 027-NAP1-BI SARS-CoV-2 (PCR) (Negative) HIV 1&2 Ab/P24 Ag 4thGn Influenza Type A (PCR) (Negative) Influenza Type B (PCR) (Negative) RSV (PCR) (Negative) Stool H. pylori Ag Lab Acknowledgement Test Added Test Added Test Added 08/23/23 08/23/23 08/23/23 Range/Units 22:35 20:05 15:27 WBC (4.50-11.00) K/uL RBC (4.30-5.90) m/uL Hgb (13.5-17.5) gm/dL Hct (37.0-53.0) % MCV (80-100) fL MCH (26-34) pg MCHC (32-36) gm/dL RDW Coeff of Les (11.5-15.5) % Plt Count (140-440) K/uL Neut % (Auto) (42.0-72.0) % Lymph % (Auto) (20-44) % [place] % (Auto) (0.0-11.0) % Eos % (Auto) (0.0-7.0) % Baso % (Auto) (0.0-3.0) % Neut # (Auto) (1.7-7.0) K/uL Lymph # (Auto) (0.90-2.90) K/uL [place] # (Auto) (0.00-0.90) K/UL Eos # (Auto) (0.00-0.50) K/uL Baso # (Auto) (0.00-0.30) K/uL Abs Immat Gran (auto) (0.00-0.30) K/uL Imm/Tot Granulo (auto) % Diff Slide Review (Acceptable) INR (0.91-1.10) APTT (23-33) Seconds Sodium 122 L* (135-149) mmol/L Potassium (3.6-5.1) mmol/L Chloride (96-114) mmol/L Carbon Dioxide (20-32) mmol/L Anion Gap (7-15) mEq/L BUN (7-30) mg/dL Creatinine (0.5-1.5) mg/dL Estimated Creat Clear Estimated GFR ml/min Glucose (60-115) mg/dL Lactate 1.7 (0.5-1.9) mmol/L Calcium (8.4-10.6) mg/dL Phosphorus (2.5-4.5) mg/dL Iron (49-181) ug/dL TIBC (261-462) ug/dL % Saturation (20-50) % Total Bilirubin (0.1-1.5) mg/dL Direct Bilirubin (0.0-0.5) mg/dL AST (12-35) U/L ALT (4-50) U/L Alkaline Phosphatase (40-150) U/L Troponin I (0.01-0.04) ng/mL C-Reactive Protein (0.5-1.0) mg/dL NT-Pro-B Natriuret Pep pg/mL Total Protein (6.0-8.3) g/dL Albumin (3.3-5.0) g/dL Lipase (23-300) U/L PSA Screen (0.10-4.00) ng/mL Procalcitonin 0.74 H (<0.50) ng/mL TSH (0.270-4.20) uIU/mL Free T4 (0.70-1.85) ng/dL Cortisol Cortisol 30 Minute Cortisol 60 Minute Urine Color (Yellow) Urine Appearance (Clear) Urine pH (5.0-8.5) Ur Specific [place] (1.000-1.030) Urine Protein (Negative) Urine Glucose (UA) (Negative) Urine Ketones (Negative) Urine Blood (Negative) Urine Nitrite (Negative) Urine Bilirubin (Negative) Urine Urobilinogen (0.2-1.0) Ur Leukocyte Esterase (Negative) Urine RBC (0-2) Urine WBC (0-5) Ur Squamous Epith Cells (None-Few) Amorphous Sediment (None) Urine Bacteria (None) Stl C. diff Tox B Gene Stl C. diff 027-NAP1-BI SARS-CoV-2 (PCR) (Negative) HIV 1&2 Ab/P24 Ag 4thGn Influenza Type A (PCR) (Negative) Influenza Type B (PCR) (Negative) RSV (PCR) (Negative) Stool H. pylori Ag Lab Acknowledgement Test Added 08/23/23 08/23/23 08/23/23 Range/Units 14:53 14:52 10:49 WBC 15.41 H (4.50-11.00) K/uL RBC 4.48 (4.30-5.90) m/uL Hgb 11.2 L (13.5-17.5) gm/dL Hct 34.1 L (37.0-53.0) % MCV 76 L (80-100) fL MCH 25 L (26-34) pg MCHC 33 (32-36) gm/dL RDW Coeff of Les 15.8 H (11.5-15.5) % Plt Count 300 (140-440) K/uL Neut % (Auto) 33.9 L (42.0-72.0) % Lymph % (Auto) 56.5 H (20-44) % [place] % (Auto) 6.9 (0.0-11.0) % Eos % (Auto) 0.5 (0.0-7.0) % Baso % (Auto) 0.3 (0.0-3.0) % Neut # (Auto) 5.20 (1.7-7.0) K/uL Lymph # (Auto) 8.70 H (0.90-2.90) K/uL [place] # (Auto) 1.10 H (0.00-0.90) K/UL Eos # (Auto) 0.10 (0.00-0.50) K/uL Baso # (Auto) 0.00 (0.00-0.30) K/uL Abs Immat Gran (auto) 0.30 (0.00-0.30) K/uL Imm/Tot Granulo (auto) 1.9 % Diff Slide Review Acceptable Review (Acceptable) INR 1.20 H (0.91-1.10) APTT 43 H (23-33) Seconds Sodium 119 L* (135-149) mmol/L Potassium 3.6 (3.6-5.1) mmol/L Chloride 91 L (96-114) mmol/L Carbon Dioxide 20 (20-32) mmol/L Anion Gap 8 (7-15) mEq/L BUN 21 (7-30) mg/dL Creatinine 1.4 (0.5-1.5) mg/dL Estimated Creat Clear 59.45 Estimated GFR 56 ml/min Glucose 116 H (60-115) mg/dL Lactate 1.5 (0.5-1.9) mmol/L Calcium 7.6 L (8.4-10.6) mg/dL Phosphorus 4.5 (2.5-4.5) mg/dL Iron 41 L (49-181) ug/dL TIBC 214 L (261-462) ug/dL % Saturation 19 L (20-50) % Total Bilirubin 0.5 (0.1-1.5) mg/dL Direct Bilirubin 0.2 (0.0-0.5) mg/dL AST 64 H (12-35) U/L ALT 41 (4-50) U/L Alkaline Phosphatase 69 (40-150) U/L Troponin I 0.01 (0.01-0.04) ng/mL C-Reactive Protein 2.4 H (0.5-1.0) mg/dL NT-Pro-B Natriuret Pep 540 pg/mL Total Protein 6.7 (6.0-8.3) g/dL Albumin 3.1 L (3.3-5.0) g/dL Lipase 132 (23-300) U/L PSA Screen (0.10-4.00) ng/mL Procalcitonin 0.74 H (<0.50) ng/mL TSH 5.320 H (0.270-4.20) uIU/mL Free T4 1.65 (0.70-1.85) ng/dL Cortisol Cortisol 30 Minute Cortisol 60 Minute Urine Color (Yellow) Urine Appearance (Clear) Urine pH (5.0-8.5) Ur Specific [place] (1.000-1.030) Urine Protein (Negative) Urine Glucose (UA) (Negative) Urine Ketones (Negative) Urine Blood (Negative) Urine Nitrite (Negative) Urine Bilirubin (Negative) Urine Urobilinogen (0.2-1.0) Ur Leukocyte Esterase (Negative) Urine RBC (0-2) Urine WBC (0-5) Ur Squamous Epith Cells (None-Few) Amorphous Sediment (None) Urine Bacteria (None) Stl C. diff Tox B Gene Stl C. diff [id number] SARS-CoV-2 (PCR) Negative SARS-CoV-2 (Negative) HIV 1&2 Ab/P24 Ag 4thGn Influenza Type A (PCR) Negative PCR FLU A (Negative) Influenza Type B (PCR) Negative PCR FLU B (Negative) RSV (PCR) Negative PCR RSV (Negative) Stool H. pylori Ag Lab Acknowledgement Test Added Test Added 08/23/23 Range/Units 10:31 WBC (4.50-11.00) K/uL RBC (4.30-5.90) m/uL Hgb (13.5-17.5) gm/dL Hct (37.0-53.0) % MCV (80-100) fL MCH (26-34) pg MCHC (32-36) gm/dL RDW Coeff of Les (11.5-15.5) % Plt Count (140-440) K/uL Neut % (Auto) (42.0-72.0) % Lymph % (Auto) (20-44) % [place] % (Auto) (0.0-11.0) % Eos % (Auto) (0.0-7.0) % Baso % (Auto) (0.0-3.0) % Neut # (Auto) (1.7-7.0) K/uL Lymph # (Auto) (0.90-2.90) K/uL [place] # (Auto) (0.00-0.90) K/UL Eos # (Auto) (0.00-0.50) K/uL Baso # (Auto) (0.00-0.30) K/uL Abs Immat Gran (auto) (0.00-0.30) K/uL Imm/Tot Granulo (auto) % Diff Slide Review (Acceptable) INR (0.91-1.10) APTT (23-33) Seconds Sodium (135-149) mmol/L Potassium (3.6-5.1) mmol/L Chloride (96-114) mmol/L Carbon Dioxide (20-32) mmol/L Anion Gap (7-15) mEq/L BUN (7-30) mg/dL Creatinine (0.5-1.5) mg/dL Estimated Creat Clear Estimated GFR ml/min Glucose (60-115) mg/dL Lactate (0.5-1.9) mmol/L Calcium (8.4-10.6) mg/dL Phosphorus (2.5-4.5) mg/dL Iron (49-181) ug/dL TIBC (261-462) ug/dL % Saturation (20-50) % Total Bilirubin (0.1-1.5) mg/dL Direct Bilirubin (0.0-0.5) mg/dL AST (12-35) U/L ALT (4-50) U/L Alkaline Phosphatase (40-150) U/L Troponin I (0.01-0.04) ng/mL C-Reactive Protein (0.5-1.0) mg/dL NT-Pro-B Natriuret Pep pg/mL Total Protein (6.0-8.3) g/dL Albumin (3.3-5.0) g/dL Lipase (23-300) U/L PSA Screen (0.10-4.00) ng/mL Procalcitonin (<0.50) ng/mL TSH (0.270-4.20) uIU/mL Free T4 (0.70-1.85) ng/dL Cortisol Cortisol 30 Minute Cortisol 60 Minute Urine Color Yellow (Yellow) Urine Appearance Clear (Clear) Urine pH 6.0 (5.0-8.5) Ur Specific [place] 1.010 (1.000-1.030) Urine Protein 1+ A (Negative) Urine Glucose (UA) Negative (Negative) Urine Ketones Negative (Negative) Urine Blood Trace-intact A (Negative) Urine Nitrite Negative (Negative) Urine Bilirubin Negative (Negative) Urine Urobilinogen 0.2 (0.2-1.0) Ur Leukocyte Esterase Negative (Negative) Urine RBC 0-2 (0-2) Urine WBC 0-2 (0-5) Ur Squamous Epith Cells Few (None-Few) Amorphous Sediment (None) Urine Bacteria Few A (None) Stl C. diff Tox B Gene Stl C. diff 027-NAP1-BI SARS-CoV-2 (PCR) (Negative) HIV 1&2 Ab/P24 Ag 4thGn Influenza Type A (PCR) (Negative) Influenza Type B (PCR) (Negative) RSV (PCR) (Negative) Stool H. pylori Ag Lab Acknowledgement Impression & Recommendations Recommendations Impression & Recommendations: This a 63 y/o male with history of colectomy for ulcerative colitis in 1977, s/p remote ileostomy takedown and surgically placed internal pouch in 1994, currently on no meds for UC, who presents with c/o of >1 month of weakness, low appetite and lately nausea w/o vomiting. As per notes, the patient was hospitalized x bronchitis about 1 month ago then in Mid he with influenza and was treated symptomatically after which he started to have low appetite. August 06 he was admitted to the hospital with a possible small- bowel obstruction. At that time he was having bleeding from his internal pouch. The bleeding stopped after a day or 2 but then he developed diarrhea and was diagnosed with pouchitis on August 11. He was treated with Cipro and Flagyl and finished that treatment 3 days ago. His abdominal pain and diarrhea and bleeding have all stopped. During that last part of July he also reported having no appetite. They concluded he did not have a small-bowel obstruction. He was seen in May with some chest pain. He notes that he has had exertional dyspnea and chest pain for some time. He was found to have a left bundle branch block of unknown duration. He had a stress echo test In June which was unremarkable. The results were somewhat indeterminate due to a small wall motion abnormality possibly related to his left bundle branch block. On August [address] of his chest which showed no PE. Apparently pt also with SOB and GAN in May, normal PFTs in May, stress echo in Jun showed LBBB and small septal wall motion abnl. Per ED note, the patient presented on 08/23/23 to [facility] with c/o ongoing weakness for the last 3-4 months, he has been to the emergency room twice now, admitted once for what sounds like pouchitis and possibly a little bit of bleeding from his ostomy. Finished a course of Cipro and Flagyl last week, and just really has not recovered. No c/o vomiting but has some nausea, anorexia, weight loss and weakness. This started approximately 3-4 months ago, any were having him see Cardiology. They actually had an appointment to get scoped at [facility] but they would not do it in like fill without a Cardiology consult. No reports of subjective fevers or chills at home but spikes a fever to 101.4 in the hospital, no chest pain, abdominal pain, or back pain, no significant respiratory symptoms. Initial VS 105/69, HR 98, RR 18, O2 sat 97% RA, Temp 98.0, initial labs c/w leukocytosis WBC 15.4K, PMN 33.9%, Hg 11.2, Hct 34, plat count 300K, serum Cr 1.4, AST 64, ALT 41, T bili 0.5, CRP 2.4, Procal 0.74, lipase WNL, limited RVP negative for Flu/RSV/COVID-19. Pt found to have hyponatremia, serum Na 119 on admission?132 today, was managed w fluid restriction and sodium tabs. Also with KIM Sr creatinine 1.4 --> 1.6 --> 1.9, pt noted to have hematochezia from pouch 08/24 and 08/25, RUQ US unrevealing, EGD planned, on IV protonix, while in the hospital he spikes a fever to 11.4 and his WBC initially went down then up trending 14.5>12.8<21.8K, UA negative, blood and urine Cx were sent, pt was started on empiric zosyn + IV vancomycin. Blood cx remain NGTD. Urine cx <50K mixed gram positive odessa, CXR clear lungs, head CT no acute findings. Renal US normal. CT chest/a/p: no acute findings within c hest, postsurgical changes of previous rectal resection with creation of a neorectum in a right lower quadrant ostomy. 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 ?Prominent right lower quadrant lymph nodes, likely reactive. No bowel obstruction. No clear infectious source identified, renal function worsening, primary team stopped systemic IV Abx and tele ID was consulted on 08/25/23 for recommendation Re further infectious work up and management. 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 Renal US unrevealing. Pt with no localizing symptoms other than anorexia, weakness and nausea with some bleeding from stoma site per primary team. Plan for an EGD and abdominal MRI. I recommend repeat blood cx, given recent exposure to fluoroquinolone (cipro) I would r/o C diff and chest stool studies: O&P, culture and C diff assay, to check HIV status (pt to provide verbal consent and chest TTE. Primary team discontinued broad spectrum IV Abx, as long as the patient remains stable, it is reasonable to hold systemic Abx but if the patient clinical status changes, worsens or decompensates, they need to be restarted, zosyn is an appropriate option. Recommendations: -To send 2 new sets of blood culture -To ask lab/hematology to review peripheral smear. -Check stool studies C diff test, O&P and stool Cx -Nares MRSA screen -Check HIV Ab/Ag combo, pt will need to provide verbal consent, check syphilis status and hep B, C serologies, to check for lyme disease. -Unclear TB risk factors, would check serum Gold quantiferon. -Would get a TTE -Follow up EGD results, plan for additional abdominal imaging with an MRI, will follow up results. -Consider surgery input given the CT a/p findings of entero-enteric fistula between a loop of small bowel and a portion of bowel involved in neorectum formation. -As stated above, ok to continue to hold systemic antibiotic while investigating possible source as long as pt remains stable, but if he were to decompensates or if clinical status changes or worsens, I would restart renal dosing of zosyn. -Plan d/w Primary team. -Thanks for the consult, tele ID will follow up patient, please page us with questions. Valerie Morris MD? Division of Infectious Disease [facility] ID Connect
[2023-08-25 15:57] LABS: HIV 1/2/P24 Combo Screen* Negative (Negative)
[2023-08-25 16:20] LABS: C.Difficile Negative (Negative); CDIFFEPI 027 Presumptive Negative (Negative)
[2023-08-25 16:22] LABS: H pylori Ag Stool* Negative (Negative)
[2023-08-25] MEDS: PERFLUTREN LIPID MICROSPHERES 2 ML VIAL IV (16:30)
[2023-08-25] MEDS: 0.9 % SODIUM CHLORIDE 1000 ml 1,000 ML 75 ML IV ×2 (16:46→22:40)
--- NOTE | 2023-08-25 19:46 | PC.NURSE ---
Soft BPs, otherwise VSS. On tele- NSR, LBBB. Denies pain. Tolerated clear ensure x2 & rice krispies w/ milk and half of a muffin. 1500 FR- asks for ice chips frequently. Hypo BS lower quadrant, hyper upper quadrant. Voided x2- urine & stool sent to lab. GI pouch- emptied AM for 150 cc, liquid brown/green, blood specks. Emptied this afternoon- 250 cc harley blood- provider aware. This output continues, pt reports output seems to be more viscous now. PIV x2- NS @ 75 cc/hr. Up independently in room. Bed bath. Renal ultrasound, echo, MRI today- results pending. EGD scheduled for tomorrow, NPO at midnight. Will continue to monitor, follow POC, and keep pt and family updated. Ariana Olguin RN
[2023-08-25] MEDS: TRAMADOL HCL 50 MG TABLET PO (20:18)
[2023-08-26] VITALS (8 sets, daily range): BP systolic 95–110; BP diastolic 56–94; PULSE 85–104; RESP 16–18; TEMP 36.4–36.9; O2SAT 95–98
--- NOTE | 2023-08-26 06:37 | PC.NURSE ---
pleasant and cooperative. indep in rm. VSS. Afebrile. Stoma liquid output brown/red. Tele - NSR with BBB.
[2023-08-26 06:52] LABS: Basophils Percent Auto 0.2 % (0.0-3.0); Eosinophils Percent Auto 0.6 % (0.0-7.0); Hematocrit 29.8 % (37.0-53.0); Hemoglobin* 9.4 gm/dL (13.5-17.5); Immature Granulocytes Pct Auto 1.4 %; Lymphocytes Percent Auto 65.6 % (20-44); Mean Corpuscular HGB Conc 32 gm/dL (32-36); Mean Corpuscular Hemoglobin 25 pg (26-34); Mean Corpuscular Volume 80 fL (80-100); Monocytes Percent Auto 5.8 % (0.0-11.0); Neutrophils Percent Auto 26.4 % (42.0-72.0); Platelet Count* 303 K/uL (140-440); Red Blood Count 3.73 m/uL (4.30-5.90); White Blood Count* 12.31 K/uL (4.50-11.00)
[2023-08-26 07:05] LABS: HCO3 VBG 22 mmol/L (21-28); Ionized Calcium* 1.06 mmol/L (1.11-1.30); PCO2 VBG 39 mmHG (40-50); PO2 VBG 30.1 mmHG (25-47); pH VBG 7.358 (7.32-7.43)
[2023-08-26 07:19] LABS: Albumin* 2.2 g/dL (3.3-5.0)
[2023-08-26 07:21] LABS: Albumin* 2.2 g/dL (3.3-5.0); Chloride* 106 mmol/L (96-114); Potassium* 3.7 mmol/L (3.6-5.1); Sodium* 129 mmol/L (135-149)
[2023-08-26 07:22] LABS: Bilirubin Direct* 0.2 mg/dL (0.0-0.5); Bilirubin Total* 0.4 mg/dL (0.1-1.5); Total Protein* 5.3 g/dL (6.0-8.3)
[2023-08-26 07:23] LABS: Alanine Aminotransferase* 31 U/L (4-50); Alkaline Phosphatase* 74 U/L (40-150); Aspartate Amino Transferase* 48 U/L (12-35); Creatinine* 1.6 mg/dL (0.5-1.5); Est. Creatinine Clearance* 52.02; Estimated Glomerular Filt Rate 48 ml/min; Magnesium* 2.2 mg/dL (1.5-2.6)
[2023-08-26 07:24] LABS: Anion Gap 5 mEq/L (7-15); Blood Urea Nitrogen* 16 mg/dL (7-30); Calcium* 7.1 mg/dL (8.4-10.6); Carbon Dioxide* 18 mmol/L (20-32); Glucose* 93 mg/dL (60-115); Phosphorus* 3.7 mg/dL (2.5-4.5); Slide Review Reflex No
[2023-08-26 07:25] LABS: C Reactive Protein* 2.4 mg/dL (0.5-1.0)
[2023-08-26 07:39] LABS: Procalcitonin* 0.43 ng/mL (<0.50)
[2023-08-26] MEDS: PANTOPRAZOLE SODIUM 40 MG INJ IVP (08:41)
[2023-08-26] MEDS: CALCIUM GLUC 1,000MG/50 ML 1,000 MG/50 ML BAG 100 MG IVPB (08:41)
--- NOTE | 2023-08-26 10:27 | PM.IMPN1 ---
Progress Note: A&P Assessment and plan (1) Acute hyponatremia: Problem details: 119 --> 132 -->129 has NS running at 75cc/hr no fluid restriction salt tabs likely due to poor intake in recent weeks continue to follow Status: Acute (2) GI bleeding: Problem details: - hematochezia noted from pouch 08/24, 08/25, 08/26 - 2 weeks ago had dark red blood in his stool. Resolved after couple days. - Right upper quadrant ultrasound neg, 08/24/23 - IV protonix daily - EGD, pouch scope 08/26 - discuss with [facility] and consider capsule endoscopy outpatient. Dr. Santacruz reviewed MRI of abdomen - no significant concerns - H Pylori stool antigen ordered (neg_ - CDIFF neg Status: Acute (3) ATN (acute tubular necrosis): Problem details: - Admission creatinine, 1.4 --> 1.6 --> 1.9 -->1.6 - previous range 0.9 (08/07/23) to 1.16 (Jun 10) - 2+ protein and sediment on UA from 08/24 - normal renal u/s 08/24 - Vanc/Zosyn on hold - ATN from these meds? HOLD 08/25 AM Status: Acute (4) Fever: Problem details: -etiology unclear. Chest abdomen pelvis CT and right upper quadrant ultrasound reassuring. Cultures are pending. On broad-spectrum antibiotics until am of 08/25 -ATN likely developing from abx -white blood cell count on admission 15.4 -- downtrended to 12.8, but bumped up 21.8K 08/25 and now back at 12 08/26 -procalcitonin is slowly downtrending. C reactive protein is mildly elevated -blood culture x3 sets are negative to date. Urine culture is negative. -resp screen neg -has some mild back pain, unclear significance. PSA normal. -ID consult - see their note: ok to be off abx for now, added a few more investigations Status: Acute (5) Exertional chest pain: Problem details: - recent positive stress echo, but achieved 10 Mets. Symptomatic during exam. Developed left bundle branch block. - troponin neg on admission. Tele reveals LBBB. - Has outpatient follow-up with Cardiology at the end of August Status: Acute (6) Left bundle branch block: Problem details: -identified in June of 2023 during a stress echo exam. On admission EKG. Status: Acute (7) Ulcerative colitis: Problem details: - status post colectomy in 1977 - h/o of SBO and revision of ostomy in 1993 - no treatment for UC since original surgery in late Status: Acute (8) Loss of appetite: Problem details: - etiology unclear. hyponatremia? RUQ us and CT CAP reassuring. - gastritis? angina equivalent? malignancy? still broad differential. - endoscopy planned for 08/26 Status: Acute (9) Weight loss: Problem details: -10 lb weight loss since 06/10 Status: Acute (10) Weakness: Problem details: - multifactorial - recent GI bleed (no transfusion), recent influenza A, recent hyponatremia - ACTH Stim test done 08/25 - awaiting results Status: Acute (11) Hypocalcemia: Problem details: mild, replacement ordered Status: Acute Subjective Date Seen: 08/26/23 Interval history: Daily Progress Note - Hospital Medicine Day #: 4 CC: Fever/leukocytosis, Hyponatremia, weakness, anorexia with weight loss, recent influenza a and GI blood loss. OVERNIGHT UPDATES FROM STAFF & MED, LAB, IMAGING UPDATES -still c/o anorexia, nausea. down 3.1 kg from admission -no abdominal pain -up in room independent -still on 75 cc/hr of NS -NPO this am for EGD and pouch scope per general surgery Hemoglobin is down. 11.2-->10 -->9.4 WBCs was 21.8 now back to 12.3 (lymphocytes predominate) Sodium 119->112-->128-->132--129 Potassium is normal today Creatinine (ATN) is 1.6-->1.9-->1.6 low calcium at 1.06 ICal CRP stable at 2.5, procalcitonin is down trending to 0.43 -ACTH stim test completed the morning of 08/25/2023, cortisol results are pending -has developed ATN likely from his antibiotics. baseline creatine is 0.9, 1.4 on admission --> 1.6 -->1.9--1.6. 2+ protein, +sediment. normal u/s (HELD ABX AM OF 08/25) Prior to admission: -patient is frustrated at mixed messaging regarding his EGD. -he has had a positive stress echo on July 02. While he had good exercise duration and achieved over 10 Mets he did develop left branch block and some wall motion abnormalities. This was diagnosed as a positive stress test for ischemia. Thus the EGD has not been accomplished as an outpatient as [facility] said should be in hospital for EGD. -PCP and cardiology discussed that achieving 10 Mets creates a low risk situation for a simple endoscopy -competing priorities - if he gets a stent or cardiac intervention then DAPT would prevent or make more risky and GI biopsies Objective: Flat affect Vitals: see above Lungs: Clear. Cardiac: S1S2. Abdomen: Soft Summary plan: 1. Hold antibiotics secondary to ATN since 08/25. ID agreed. no further fever, inflamm markers downtrending, wbc now back down. checked a few things for ID: MRSA, Echo, more blood cultures, Hep/RPR/HIV/TB/CDiff 2. ACTH stim test pending 3. EGD and pouch cscope 08/26 4. H Pylori AG stool pending 5. Consider Lumbar CT for back pain and source of infection Disposition/Potential discharge - Likely to return to previous living situation. Today I spent 50minutes seeing the patient, reviewing Expanse and EPIC notes/diagnostics, discussing the care plan with our care time that includes social work, PT/OT, pharmacy, RT, senior living and documenting my impressions and plan in the medical record. Exam Const: Vital Signs, click to edit/add: Vital Signs - 24 hr 08/25/23 11:00 08/25/23 14:24 08/25/23 15:00 Temperature 98.8 F 97.6 F Pulse Rate Pulse Rate [Right Pulse Oximeter] 90 87 Respiratory Rate 16 16 Blood Pressure [Ri ght Arm] 94/59 L 88/56 L 102/56 L Pulse Oximetry 96 95 Oxygen Delivery Me thod Room Air Room Air 08/25/23 15:00 08/25/23 19:00 08/25/23 22:46 Temperature 98.5 F 98.3 F Pulse Rate 84 Pulse Rate [Right Pulse Oximeter] 103 H 97 Respiratory Rate 16 16 Blood Pressure [Ri ght Arm] 126/67 111/65 Pulse Oximetry 95 93 Oxygen Delivery Me thod Room Air Room Air 08/25/23 23:00 08/25/23 23:36 08/26/23 03:00 Temperature 98.3 F Pulse Rate 94 Pulse Rate [Right Pulse Oximeter] 97 95 Respiratory Rate 16 16 Blood Pressure [Ri ght Arm] 107/68 Pulse Oximetry 95 Oxygen Delivery Me thod Room Air 08/26/23 07:35 08/26/23 08:00 08/26/23 08:00 Temperature 98.2 F Pulse Rate 92 Pulse Rate [Right Pulse Oximeter] 95 104 H Respiratory Rate 16 18 Blood Pressure [Ri ght Arm] 97/94 H Pulse Oximetry 97 Oxygen Delivery Me thod Room Air Labs Labs: Laboratory Results - last 24 hr 08/25/23 08/25/23 08/25/23 06:00 14:03 20:59 WBC RBC Hgb Hct MCV MCH MCHC RDW Coeff of Les Plt Count Neut % (Auto) Lymph % (Auto) [place] % (Auto) Eos % (Auto) Baso % (Auto) Neut # (Auto) Lymph # (Auto) [place] # (Auto) Eos # (Auto) Baso # (Auto) Abs Immat Gran (auto) Imm/Tot Granulo (auto) VBG pH VBG pCO2 VBG pO2 VBG HCO3 Sodium Potassium Chloride Carbon Dioxide Anion Gap BUN Creatinine Estimated Creat Clear Estimated GFR Glucose Calcium Ionized Calcium Brea Phosphorus Magnesium Total Bilirubin Direct Bilirubin AST ALT Alkaline Phosphatase C-Reactive Protein Total Protein Albumin Procalcitonin Stl C. diff Tox B Gene Stl C. diff 027-NAP1-BI HIV 1&2 Ab/P24 Ag 4thGn Negative Stool H. pylori Ag Lab Acknowledgement Test Added Test Added 08/25/23 08/26/23 08/26/23 Unknown 06:15 06:15 WBC 12.31 H RBC 3.73 L Hgb 9.4 L Hct 29.8 L MCV 80 MCH 25 L MCHC 32 RDW Coeff of Les 17.0 H Plt Count 303 Neut % (Auto) 26.4 L Lymph % (Auto) 65.6 H [place] % (Auto) 5.8 Eos % (Auto) 0.6 Baso % (Auto) 0.2 Neut # (Auto) 3.20 Lymph # (Auto) 8.10 H [place] # (Auto) 0.70 Eos # (Auto) 0.10 Baso # (Auto) 0.00 Abs Immat Gran (auto) 0.20 Imm/Tot Granulo (auto) 1.4 VBG pH 7.358 VBG pCO2 39 L VBG pO2 30.1 VBG HCO3 22 Sodium 129 L Potassium 3.7 Chloride 106 Carbon Dioxide 18 L Anion Gap 5 L BUN 16 Creatinine 1.6 H Estimated Creat Clear 52.02 Estimated GFR 48 Glucose 93 Calcium 7.1 L Ionized Calcium Brea 1.06 L Phosphorus 3.7 Magnesium 2.2 Total Bilirubin 0.4 Direct Bilirubin 0.2 AST 48 H ALT 31 Alkaline Phosphatase 74 C-Reactive Protein 2.4 H Total Protein 5.3 L Albumin 2.2 L 2.2 L Procalcitonin 0.43 Stl C. diff Tox B Gene Negative Stl C. diff 027-NAP1-BI Presumptive Negative HIV 1&2 Ab/P24 Ag 4thGn Stool H. pylori Ag Negative Lab Acknowledgement
--- NOTE | 2023-08-26 12:02 | W.ANESCHARGE ---
Anesthesia Charges Start Date/Time Anesthesia Start Date: 08/26/23 Anesthesia Start Time: 11:15 Stop Date/Time Anesthesia Stop Date: 08/26/23 Anesthesia Stop Time: 11:56
[2023-08-26] MEDS: SODIUM CHLORIDE 1 GM TABLET PO ×2 (12:48→17:45)
[2023-08-26] MEDS: 0.9 % SODIUM CHLORIDE 1000 ml 1,000 ML 75 ML IV (14:24)
--- NOTE | 2023-08-26 18:53 | PC.NURSE ---
End of Shift: Pt pleasant and cooperative. Afebrile. Denies dorota n. Up with SBA. Walking in hallway x1. no po oral iron he got sick after and pt said not to take it. . BM x3, . Tele showing 1 st degree HB he got scoped today. IV is patent. he is eating and drinking and voiding. he was internal ostomy that he takes care of.
[2023-08-26] MEDS: TRAMADOL HCL 50 MG TABLET PO (21:38)
[2023-08-26] MEDS: SODIUM CHLORIDE 0.9 % (FLUSH) 10 ML SYRINGE 5 ML IVF (21:38)
[2023-08-26 22:48] LABS: Cortisol 0 Min 13.4 ug/dL
[2023-08-27] VITALS (10 sets, daily range): BP systolic 106–121; BP diastolic 62–71; PULSE 89–103; RESP 16–20; TEMP 36.5–37.2; O2SAT 94–98
[2023-08-27] MEDS: 0.9 % SODIUM CHLORIDE 1000 ml 1,000 ML 75 ML IV (02:52)
--- NOTE | 2023-08-27 05:38 | PC.NURSE ---
Addendum entered by Julianne Molina RN 08/27/23 07:03: Pt w/ 25cc of stool from gastric pouch that was only light brown, no trace of blood noted. Original Note: Shift note : Pt alert, up @ rah, GAN although LSC and sats 94-95% RA. Tele reads SR BBB 90's @ rest, ST 120's w/ activity, no c/o CP. Tolerating food/fluids w/o nausea although remains w/ reddish brown output from gastric pouch. ABX on hold, afebrile. C/O neck/back pain 01/25 @ HS, Ultram 100mg given w/ relief verbalized.
[2023-08-27 06:30] LABS: HCO3 VBG 21 mmol/L (21-28); Ionized Calcium* 1.07 mmol/L (1.11-1.30); PCO2 VBG 34 mmHG (40-50); PO2 VBG 44.8 mmHG (25-47); pH VBG 7.399 (7.32-7.43)
[2023-08-27 06:41] LABS: Basophils Percent Auto 0.3 % (0.0-3.0); Eosinophils Percent Auto 0.6 % (0.0-7.0); Hematocrit 28.2 % (37.0-53.0); Immature Granulocytes Pct Auto 1.1 %; Lymphocytes Percent Auto 68.8 % (20-44); Mean Corpuscular HGB Conc 32 gm/dL (32-36); Mean Corpuscular Hemoglobin 26 pg (26-34); Mean Corpuscular Volume 80 fL (80-100); Monocytes Percent Auto 5.5 % (0.0-11.0); Neutrophils Percent Auto 23.7 % (42.0-72.0); Platelet Count* 286 K/uL (140-440); RDW Coefficient of Variation % 17.3 % (11.5-15.5); Red Blood Count 3.53 m/uL (4.30-5.90); White Blood Count* 11.57 K/uL (4.50-11.00)
[2023-08-27 06:47] LABS: Chloride* 109 mmol/L (96-114); Potassium* 3.6 mmol/L (3.6-5.1); Sodium* 132 mmol/L (135-149)
[2023-08-27 06:49] LABS: Creatinine* 1.5 mg/dL (0.5-1.5); Est. Creatinine Clearance* 55.49; Estimated Glomerular Filt Rate 51 ml/min
[2023-08-27 06:50] LABS: Anion Gap 6 mEq/L (7-15); Blood Urea Nitrogen* 14 mg/dL (7-30); Carbon Dioxide* 17 mmol/L (20-32); Glucose* 100 mg/dL (60-115)
[2023-08-27 06:51] LABS: Calcium* 6.9 mg/dL (8.4-10.6)
[2023-08-27 06:53] LABS: C Reactive Protein* 2.2 mg/dL (0.5-1.0)
[2023-08-27 07:32] LABS: Slide Review Acceptable Review (Acceptable); Slide Review Reflex Yes
[2023-08-27] MEDS: SODIUM CHLORIDE 0.9 % (FLUSH) 10 ML SYRINGE 5 ML IVF ×2 (09:47→21:47)
[2023-08-27] MEDS: SODIUM CHLORIDE 1 GM TABLET PO ×3 (09:47→18:30)
[2023-08-27] MEDS: PANTOPRAZOLE SODIUM 40 MG INJ IVP (09:47)
--- NOTE | 2023-08-27 11:29 | NUTR.NU ---
Nutrition Follow-up: RDN followed up with patient whom reports an increase in appetite last night and today. He reports eating 1/2 turkey sandwich with mashed potatoes and gravy for dinner last night. He tolerated this well. This morning he tolerated a few pieces of toast well. Intakes continue to be variable. Weight is 213lb 5oz - weight gain of 8lbs since admit, suspect this is related to fluid and improved intakes. Patient declined scheduled supplements at this time. He reports he will ask for Ensure Clear as needed. Ensure Clear provides 240 kcals and 8 grams protein per bottle. No changes at this time. RDN will continue to monitor and follow-up prn.
--- NOTE | 2023-08-27 12:13 | PM.IMPN1 ---
Progress Note: A&P Assessment and plan (1) Acute hyponatremia: Problem details: Likely due to poor intake in recent weeks with acute loss of appetite and nausea during July 2023 when he had influenza. Initially overcorrected with fairly low volume of NS. Trend: 119 --> 132 -->129 -->132. -Will stop IVF now that he is tolerating PO. -OK to continue salt tabs for now, but monitor closely for CHF decompensation (weight up, but seems appropriately so) continue to follow Status: Acute (2) Fever: Problem details: Etiology unclear. Chest abdomen pelvis CT and right upper quadrant ultrasound reassuring. Cultures are pending. On broad-spectrum antibiotics until am of 08/25. Possible that fever unrelated to infection? -ATN likely developing from abx -white blood cell count on admission 15.4 -- downtrended to 12.8, but bumped up 21.8K 08/25 and now improving/stable (11.6 08/27) -procalcitonin is slowly downtrending. C reactive protein is mildly elevated -blood culture x3 sets are negative to date. Urine culture is negative. -resp screen neg -has some mild back pain, unclear significance. PSA normal. -ID consult - see their note: ok to be off abx for now, added a few more investigations, many are pending Status: Acute (3) Loss of appetite: Problem details: Etiology unclear, but suspect hyponatremia as appetite improving with resolution. RUQ us and CT CAP reassuring. EGD 08/26 shows erosive esophagitis, erosive gastropathy and duodenopathy. Biopsies are pending. H pylori negative. -Continue PPI -Follow up biopsies Status: Acute (4) Weight loss: Problem details: 10 lb weight loss since 06/10. Weight here now improving as appetite improves Status: Acute (5) Adrenal insufficiency: Problem details: Patient had cortisol stim test. Initial cortisol was 13.4, 16.5 at 30 minutes and 17.9 at 60 minutes indicating inadequate response and therefore consistent with adrenal insufficiency. BP and Sodium levels improved and currently no indication he needs exogenous steroids. -ACTH level drawn today, next steps depend on level -Patient may not require ongoing hospitalization while awaiting results if he can have close follow up with PCP Status: Acute (6) ATN (acute tubular necrosis): Problem details: Suspected secondary to Zosyn use here, which has been discontinued since 08/25 - Admission creatinine, 1.4 --> 1.6 --> 1.9 -->1.6 -->1.5 - previous range 0.9 (08/07/23) to 1.16 (Jun 10) - 2+ protein and sediment on UA from 08/24 - normal renal u/s 08/24 Status: Acute (7) Left bundle branch block: Problem details: -identified in June of 2023 during a stress echo exam. On admission EKG. Status: Acute (8) HFrEF (heart failure with reduced ejection fraction): Problem details: Echocardiogram this admission shows decreased EF at 40-45% No current evidence of decompensation, but patient is taking salt tabs for hyponatremia -Continue to monitor daily weights Status: Acute (9) Exertional chest pain: Problem details: - recent positive stress echo, but achieved 10 Mets. Symptomatic during exam. Developed left bundle branch block. - troponin neg on admission. Tele reveals LBBB. - Has outpatient follow-up with Cardiology at the end of August Status: Acute (10) Ulcerative colitis: Problem details: - status post colectomy in 1977 - h/o of SBO and revision of ostomy in 1993 - no treatment for UC since original surgery in late Status: Acute (11) GI bleeding: Problem details: Hemoglobin stable - hematochezia noted from pouch 08/24, 08/25, 08/26 - 2 weeks ago had dark red blood in his stool. Resolved after couple days. - Right upper quadrant ultrasound neg, 08/24/23 - Continue IV protonix daily - EGD, pouch scope 08/26 with esophagitis, gastritis and duodenitis - discuss with [facility] and consider capsule endoscopy outpatient. Dr. Santacruz reviewed MRI of abdomen - no significant concerns - H Pylori stool antigen ordered (neg) - CDIFF neg Status: Acute (12) Hypocalcemia: Problem details: mild, replacement ordered Status: Acute (13) Weakness: Problem details: - multifactorial - recent GI bleed (no transfusion), recent influenza A, recent hyponatremia - Adrenal insufficiency (ongoing workup pending) Status: Acute Subjective Date Seen: 08/27/23 Interval history: Patient is seen and examined. He states that he is finally starting to feel a little better. His appetite has improved and he denies nausea at this time. Stool output is monitored and does not appear black, tarry or maroon. We discussed his echocardiogram results showing depressed EF 40-45%. We reviewed normal test results including H pylori and MRSA. I reviewed his cortisol stim test and he did not have an expected rise in cortisol level at 30 or 60 minutes. He denies any recent use of exogenous steroids, even with recent bronchitis. Interval results indicate improvement in leukocytosis, mildly low bicarb persists, renal function is stable to improved, ionized Calcium stable to improved, CRP improving. He remains afebrile with improvement in BP. Weight is up 2Kg, but no respiratory complaints. Exam Narrative: Exam Narrative: GENERAL: Well appearing, NAD resting in bed HEENT: NCAT, MMM RESP: No increased WOB, CTAB without wheeze CV: RRR, no m/g/r Abd: Soft,nontender, normal BS Const: Vital Signs, click to edit/add: Vital Signs - 24 hr 08/26/23 12:38 08/26/23 16:00 08/26/23 16:00 Temperature 98.1 F Pulse Rate 97 Pulse Rate [Right Pulse Oximeter] 85 100 Respiratory Rate 18 18 Blood Pressure [Le ft Arm] 95/56 L Pulse Oximetry 97 Oxygen Delivery Me thod Room Air 08/26/23 16:18 08/26/23 21:30 08/26/23 23:00 Temperature 97.6 F 98.4 F Pulse Rate 97 Pulse Rate [Right Pulse Oximeter] 100 97 Respiratory Rate 18 16 Blood Pressure [Le ft Arm] 105/67 110/66 Pulse Oximetry 98 [facility] 08/26/23 23:00 08/27/23 03:00 08/27/23 07:00 Temperature 98.2 F Pulse Rate 99 Pulse Rate [Right Pulse Oximeter] 96 96 Respiratory Rate 16 16 Blood Pressure [Le ft Arm] 115/70 Pulse Oximetry 94 Oxygen Delivery Sd thod Room Air 08/27/23 08:37 Temperature 98.6 F Pulse Rate Pulse Rate [Right Pulse Oximeter] 101 H Respiratory Rate 18 Blood Pressure [Le ft Arm] 115/70 Pulse Oximetry 96 Oxygen Delivery Sd thod Room Air Labs Labs: Laboratory Results - last 24 hr 08/25/23 08/25/23 08/25/23 06:00 06:34 07:02 WBC RBC Hgb Hct MCV MCH MCHC RDW Coeff of Les Plt Count Neut % (Auto) Lymph % (Auto) [place] % (Auto) Eos % (Auto) Baso % (Auto) Neut # (Auto) Lymph # (Auto) [place] # (Auto) Eos # (Auto) Baso # (Auto) Abs Immat Gran (auto) Imm/Tot Granulo (auto) Diff Slide Review VBG pH VBG pCO2 VBG pO2 VBG HCO3 Sodium Potassium Chloride Carbon Dioxide Anion Gap BUN Creatinine Estimated Creat Clear Estimated GFR Glucose Calcium Ionized Calcium Brea Magnesium C-Reactive Protein Cortisol 13.4 Cortisol 30 Minute 16.5 Cortisol 60 Minute 17.9 08/27/23 05:50 WBC 11.57 H RBC 3.53 L Hgb 9.0 L Hct 28.2 L MCV 80 MCH 26 MCHC 32 RDW Coeff of Les 17.3 H Plt Count 286 Neut % (Auto) 23.7 L Lymph % (Auto) 68.8 H [place] % (Auto) 5.5 Eos % (Auto) 0.6 Baso % (Auto) 0.3 Neut # (Auto) 2.70 Lymph # (Auto) 8.00 H [place] # (Auto) 0.60 Eos # (Auto) 0.10 Baso # (Auto) 0.00 Abs Immat Gran (auto) 0.10 Imm/Tot Granulo (auto) 1.1 Diff Slide Review Acceptable Review VBG pH 7.399 VBG pCO2 34 L VBG pO2 44.8 VBG HCO3 21 Sodium 132 L Potassium 3.6 Chloride 109 Carbon Dioxide 17 L Anion Gap 6 L BUN 14 Creatinine 1.5 Estimated Creat Clear 55.49 Estimated GFR 51 Glucose 100 Calcium 6.9 L Ionized Calcium Brea 1.07 L Magnesium 2.0 C-Reactive Protein 2.2 H Cortisol Cortisol 30 Minute Cortisol 60 Minute
[2023-08-27] MEDS: TRAMADOL HCL 50 MG TABLET PO (12:26)
[2023-08-27 15:02] LABS: Hep A Ab, IgM Negative (Negative); Hep B Core Ab, IgM Negative (Negative); Hep B Surface Antigen Negative (Negative); Hep C Ab by CIA Index 0.32 IV; Hep C Ab by CIA Interp Negative (Negative)
--- NOTE | 2023-08-27 16:55 | W.PM.IDPRG ---
Visit Information Visit Information Visit Information: Patient was not seen. Subjective Subjective Subjective: This patient recommendation is based on a telemedicine consult request which was completed asynchronously through chart review and information provided by the primary physician. The patient was not seen or examined today. The evaluation is consultative in nature and all patient care and treatment decisions can either be accepted or rejected by the patient's primary hospital-based treating physician using their own independent medical judgment for their patient. Pt remains afebrile off systemic Abx, his WBC trended down off antibiotics, renal function also improved, EGD-pouch scope 08/26 shows erosive esophagitis, erosive gastropathy and duodenopathy. Biopsies are pending. H pylori negative. Per note, as of today pt states that he is finally starting to feel a little better. His appetite has improved, and he denies nausea at this time. Infectious work up reviewed, some labs are still pending, stool C diff negative, hep A, B and C serologies negative, HIV ab/ag combo negative. Blood Cx NGTD. Lyme serology, RPR and serum Gold quant pending. Echocardiogram this admission shows decreased EF at 40-45% Home Medications and Allergies Home Medications and Allergies Inpatient Medications: Active Medications Generic Name Dose Route Start Last Admin Trade Name Freq PRN Reason Stop Dose Admin Acetaminophen 650 mg 08/23/23 14:41 08/23/23 22:16 Acetaminophen 325 Mg Tablet PO 650 mg Q4H PRN Administration Calcium Carbonate 1 tab 08/23/23 21:00 08/27/23 09:47 Calcium Carbonate/Vitamin D3 (500mg/5mcg) Tablet PO 1 tab BID DILLAN Administration Calcium Carbonate 500 mg 08/23/23 18:40 08/23/23 19:42 Calcium Carbonate 500 Mg Chew PO 500 mg Q4H PRN Administration gerd symptoms Ferrous Sulfate 650 mg 08/24/23 18:00 08/26/23 17:45 Ferrous Sulfate 325 Mg Tablet PO Not Given Q48H DILLAN Lidocaine/Aluminum/Magnesium/Simeth 15 ml 08/23/23 18:40 08/23/23 19:42 Mag Hydrox/Aluminum Hyd/Simeth 30 Ml Oral.Susp PO 15 ml QID PRN Administration Indigestion Melatonin 3 mg 08/23/23 14:41 Melatonin 3 Mg Tablet PO HS PRN Ondansetron HCl 4 mg 08/23/23 14:41 08/24/23 18:33 Ondansetron 2 Mg/Ml Inj IVP 4 mg Q4H PRN Administration Nausea Pantoprazole Sodium 40 mg 08/26/23 09:00 08/27/23 09:47 Pantoprazole Sodium 40 Mg Inj IVP 40 mg DAILY DILLAN Administration Sodium Chloride 5 ml 08/23/23 21:00 08/27/23 09:47 Sodium Chloride 0.9 % (Flush) 10 Ml Syringe IVF 5 ml BID DILLAN Administration Sodium Chloride 1 gm 08/23/23 18:00 08/27/23 12:27 Sodium Chloride 1 Gm Tablet PO 1 gm TIDWM DILLAN Administration Tramadol HCl 50 - 100 mg 08/24/23 11:19 08/27/23 12:26 Tramadol Hcl 50 Mg Tablet PO 50 mg Q4H PRN Administration Discontinued Medications Generic Name Dose Route Start Last Admin Trade Name Freq PRN Reason Stop Dose Admin Cosyntropin 0.25 mg 08/25/23 06:00 08/25/23 05:59 Cosyntropin 0.25 Mg Vial IVP 08/25/23 06:01 0.25 mg ONCE ONE Administration Sodium Chloride 1,000 mls @ 1,000 mls/hr 08/23/23 10:30 08/23/23 12:07 0.9 % Sodium Chloride 1000 Ml IV 08/23/23 11:29 Infused .Q1H DILLAN Infusion Vancomycin HCl 1,750 mg/ 517.5 mls @ 258.75 mls/hr 08/23/23 23:42 08/24/23 05:31 Sodium Chloride IVPB 08/23/23 23:43 Infused ONCE ONE Infusion Protocol Vancomycin HCl 1,500 mg/ 515 mls @ 257.5 mls/hr 08/24/23 15:00 08/24/23 16:56 Sodium Chloride IVPB Infused Q12H DILLAN Infusion Protocol Piperacillin Sod/Tazobactam 100 mls @ 200 mls/hr 08/24/23 02:00 08/25/23 08:49 Sod 3.375 gm/ Sodium Chloride IVPB 200 mls/hr Q6H DILLAN Administration Sodium Chloride 1,000 mls @ 500 mls/hr 08/24/23 11:00 08/24/23 13:33 0.9 % Sodium Chloride 1000 Ml IV 08/24/23 12:59 Infused .Q2H DILLAN Infusion Sodium Chloride 1,000 mls @ 125 mls/hr 08/24/23 10:53 08/25/23 08:48 0.9 % Sodium Chloride 1000 Ml IV 125 mls/hr .Q8H DILLAN Administration Vancomycin HCl 1,500 mg/ 515 mls @ 343.333 mls/hr 08/25/23 15:00 Sodium Chloride IVPB Q24H DILLAN Protocol Sodium Chloride 1,000 mls @ 75 mls/hr 08/25/23 13:21 08/27/23 02:52 0.9 % Sodium Chloride 1000 Ml IV 75 mls/hr .[id number] DILLAN Administration Calcium Gluconate/Sodium Chloride 1,000 mg in 50 mls @ 100 mls/hr 08/26/23 08:00 08/26/23 08:41 Calcium Gluc 1,000mg/50 Ml IVPB 08/26/23 08:29 100 mls/hr ONCE ONE Administration Iopamidol 101 ml 08/24/23 01:09 Iopamidol IV 08/24/23 01:10 .STK-MED ONE Ketamine HCl Confirm 08/26/23 11:10 Ketamine 50 Mg/0.5 Ml 100 Mg/Ml Ml Administered 08/26/23 11:11 Dose 50 mg .ROUTE .STK-MED ONE Lidocaine HCl Confirm 08/26/23 11:58 Lidocaine 2% (Pf) 5 Ml Vial Administered 08/26/23 11:59 Dose 5 ml .ROUTE .STK-MED ONE Pantoprazole Sodium 40 mg 08/25/23 08:22 08/25/23 08:49 Pantoprazole Sodium 40 Mg Inj IVP 08/25/23 08:23 40 mg ONCE ONE Administration Perflutren Lipid Microsphere 2 ml 08/25/23 16:16 08/25/23 16:30 Perflutren Lipid Microspheres 2 Ml Vial IV 08/25/23 16:17 0.4 ml ONCE ONE Administration Propofol Confirm 08/26/23 11:58 Propofol 10 Mg/Ml Inj Administered 08/26/23 11:59 Dose 200 mg IVP .STK-MED ONE Allergies Allergy/AdvReac Type Severity Reaction Status Date / Time No Known Drug Allergies Allergy Verified 08/23/23 09:26 Objective - Infectious Disease Objective Vital Signs: Vital Signs - 24 hr 08/26/23 21:30 08/26/23 23:00 08/26/23 23:00 Temperature 98.4 F Pulse Rate 97 Pulse Rate [Right Pulse Oximeter] 97 96 Respiratory Rate 16 16 Blood Pressure [Left Arm] 110/66 Pulse Oximetry 95 Oxygen Delivery Method Room Air 08/27/23 03:00 08/27/23 07:00 08/27/23 08:30 Temperature 98.2 F Pulse Rate 99 Pulse Rate [Right Pulse Oximeter] 96 101 H Respiratory Rate 16 18 Blood Pressure [Left Arm] 115/70 Pulse Oximetry 94 Oxygen Delivery Method Room Air 08/27/23 08:37 08/27/23 12:15 Temperature 98.6 F 97.7 F Pulse Rate Pulse Rate [Right Pulse Oximeter] 101 H 89 Respiratory Rate 18 18 Blood Pressure [Left Arm] 115/70 121/71 Pulse Oximetry 96 97 Oxygen Delivery Method Room Air Room Air Narrative: Patient was not seen or examined. Results - Infectious Disease Results Labs: 08/25/23 15:40 Blood Blood Culture - Preliminary NO GROWTH AFTER 48 HOURS 08/25/23 15:40 Blood Blood Culture - Preliminary NO GROWTH AFTER 48 HOURS 08/23/23 10:47 Blood Blood Culture - Preliminary NO GROWTH AFTER 96 HOURS 08/23/23 10:49 Blood Blood Culture - Preliminary NO GROWTH AFTER 96 HOURS 08/25/23 Unknown Urine,Clean Catch Urine Culture - Final NO GROWTH AFTER 48 HOURS 08/23/23 22:35 Blood Blood Culture - Preliminary NO GROWTH AFTER 72 HOURS 08/23/23 22:30 Blood Blood Culture - Preliminary NO GROWTH AFTER 72 HOURS 08/25/23 21:49 Nasal - Nasal MRSA Screen - Final No MRSA (Methicillin resistant Staph aureus) isolated. 08/23/23 Unknown Urine,Clean Catch Urine Culture - Final < 50,000 COL/ML MIXED GRAM POSITIVE ODESSA ISOLATED NO FURTHER WORKUP Laboratory Tests 08/27/23 08/26/23 08/26/23 Range/Units 05:50 06:15 06:15 WBC 11.57 H 12.31 H (4.50-11.00) K/uL RBC 3.53 L 3.73 L (4.30-5.90) m/uL Hgb 9.0 L 9.4 L (13.5-17.5) gm/dL Hct 28.2 L 29.8 L (37.0-53.0) % MCV 80 80 (80-100) fL MCH 26 25 L (26-34) pg MCHC 32 32 (32-36) gm/dL RDW Coeff of Les 17.3 H 17.0 H (11.5-15.5) % Plt Count 286 303 (140-440) K/uL Neut % (Auto) 23.7 L 26.4 L (42.0-72.0) % Lymph % (Auto) 68.8 H 65.6 H (20-44) % [place] % (Auto) 5.5 5.8 (0.0-11.0) % Eos % (Auto) 0.6 0.6 (0.0-7.0) % Baso % (Auto) 0.3 0.2 (0.0-3.0) % Neut # (Auto) 2.70 3.20 (1.7-7.0) K/uL Lymph # (Auto) 8.00 H 8.10 H (0.90-2.90) K/uL [place] # (Auto) 0.60 0.70 (0.00-0.90) K/UL Eos # (Auto) 0.10 0.10 (0.00-0.50) K/uL Baso # (Auto) 0.00 0.00 (0.00-0.30) K/uL Abs Immat Gran (auto) 0.10 0.20 (0.00-0.30) K/uL Imm/Tot Granulo (auto) 1.1 1.4 % Diff Slide Review Acceptable Review (Acceptable) INR (0.91-1.10) APTT (23-33) Seconds VBG pH 7.399 7.358 (7.32-7.43) VBG pCO2 34 L 39 L (40-50) mmHG VBG pO2 44.8 30.1 (25-47) mmHG VBG HCO3 21 22 (21-28) mmol/L Sodium 132 L 129 L (135-149) mmol/L Potassium 3.6 3.7 (3.6-5.1) mmol/L Chloride 109 106 (96-114) mmol/L Carbon Dioxide 17 L 18 L (20-32) mmol/L Anion Gap 6 L 5 L (7-15) mEq/L BUN 14 16 (7-30) mg/dL Creatinine 1.5 1.6 H (0.5-1.5) mg/dL Estimated Creat Clear 55.49 52.02 Estimated GFR 51 48 ml/min Glucose 100 93 (60-115) mg/dL Lactate (0.5-1.9) mmol/L Calcium 6.9 L 7.1 L (8.4-10.6) mg/dL Ionized Calcium Brea 1.07 L 1.06 L (1.11-1.30) mmol/L Phosphorus 3.7 (2.5-4.5) mg/dL Magnesium 2.0 2.2 (1.5-2.6) mg/dL Iron (49-181) ug/dL TIBC (261-462) ug/dL % Saturation (20-50) % Total Bilirubin 0.4 (0.1-1.5) mg/dL Direct Bilirubin 0.2 (0.0-0.5) mg/dL AST 48 H (12-35) U/L ALT 31 (4-50) U/L Alkaline Phosphatase 74 (40-150) U/L Troponin I (0.01-0.04) ng/mL C-Reactive Protein 2.2 H 2.4 H (0.5-1.0) mg/dL NT-Pro-B Natriuret Pep pg/mL Total Protein 5.3 L (6.0-8.3) g/dL Albumin 2.2 L 2.2 L (3.3-5.0) g/dL Lipase (23-300) U/L PSA Screen (0.10-4.00) ng/mL Procalcitonin 0.43 (<0.50) ng/mL TSH (0.270-4.20) uIU/mL Free T4 (0.70-1.85) ng/dL Cortisol ug/dL Cortisol 30 Minute ug/dL Cortisol 60 Minute ug/dL ACTH Pending Urine Color (Yellow) Urine Appearance (Clear) Urine pH (5.0-8.5) Ur Specific [place] (1.000-1.030) Urine Protein (Negative) Urine Glucose (UA) (Negative) Urine Ketones (Negative) Urine Blood (Negative) Urine Nitrite (Negative) Urine Bilirubin (Negative) Urine Urobilinogen (0.2-1.0) Ur Leukocyte Esterase (Negative) Urine RBC (0-2) Urine WBC (0-5) Ur Squamous Epith Cells (None-Few) Amorphous Sediment (None) Urine Bacteria (None) Stl C. diff Tox B Gene (Negative) Stl C. diff 027-NAP1-BI (Negative) RPR Screen Pending Lyme Disease Antibody Pending SARS-CoV-2 (PCR) (Negative) Hepatitis A IgM Ab Negative (Negative) Hep Bs Antigen Negative (Negative) Hep B Core IgM Ab Negative (Negative) Hep C Ab Index (AUSTYN) 0.32 IV Hep C Ab Interp AUSTYN Negative (Negative) Hepatitis Interpret See Note HIV 1&2 Ab/P24 Ag 4thGn (Negative) Influenza Type A (PCR) (Negative) Influenza Type B (PCR) (Negative) RSV (PCR) (Negative) TB Test (QFT) Gold Plus Pending Stool H. pylori Ag (Negative) Lab Acknowledgement 08/25/23 08/25/23 08/25/23 Range/Units Unknown 20:59 14:03 WBC (4.50-11.00) K/uL RBC (4.30-5.90) m/uL Hgb (13.5-17.5) gm/dL Hct (37.0-53.0) % MCV (80-100) fL MCH (26-34) pg MCHC (32-36) gm/dL RDW Coeff of Les (11.5-15.5) % Plt Count (140-440) K/uL Neut % (Auto) (42.0-72.0) % Lymph % (Auto) (20-44) % [place] % (Auto) (0.0-11.0) % Eos % (Auto) (0.0-7.0) % Baso % (Auto) (0.0-3.0) % Neut # (Auto) (1.7-7.0) K/uL Lymph # (Auto) (0.90-2.90) K/uL [place] # (Auto) (0.00-0.90) K/UL Eos # (Auto) (0.00-0.50) K/uL Baso # (Auto) (0.00-0.30) K/uL Abs Immat Gran (auto) (0.00-0.30) K/uL Imm/Tot Granulo (auto) % Diff Slide Review (Acceptable) INR (0.91-1.10) APTT (23-33) Seconds VBG pH (7.32-7.43) VBG pCO2 (40-50) mmHG VBG pO2 (25-47) mmHG VBG HCO3 (21-28) mmol/L Sodium (135-149) mmol/L Potassium (3.6-5.1) mmol/L Chloride (96-114) mmol/L Carbon Dioxide (20-32) mmol/L Anion Gap (7-15) mEq/L BUN (7-30) mg/dL Creatinine (0.5-1.5) mg/dL Estimated Creat Clear Estimated GFR ml/min Glucose (60-115) mg/dL Lactate (0.5-1.9) mmol/L Calcium (8.4-10.6) mg/dL Ionized Calcium Brea (1.11-1.30) mmol/L Phosphorus (2.5-4.5) mg/dL Magnesium (1.5-2.6) mg/dL Iron (49-181) ug/dL TIBC (261-462) ug/dL % Saturation (20-50) % Total Bilirubin (0.1-1.5) mg/dL Direct Bilirubin (0.0-0.5) mg/dL AST (12-35) U/L ALT (4-50) U/L Alkaline Phosphatase (40-150) U/L Troponin I (0.01-0.04) ng/mL C-Reactive Protein (0.5-1.0) mg/dL NT-Pro-B Natriuret Pep pg/mL Total Protein (6.0-8.3) g/dL Albumin (3.3-5.0) g/dL Lipase (23-300) U/L PSA Screen (0.10-4.00) ng/mL Procalcitonin (<0.50) ng/mL TSH (0.270-4.20) uIU/mL Free T4 (0.70-1.85) ng/dL Cortisol ug/dL Cortisol 30 Minute ug/dL Cortisol 60 Minute ug/dL ACTH Urine Color (Yellow) Urine Appearance (Clear) Urine pH (5.0-8.5) Ur Specific [place] (1.000-1.030) Urine Protein (Negative) Urine Glucose (UA) (Negative) Urine Ketones (Negative) Urine Blood (Negative) Urine Nitrite (Negative) Urine Bilirubin (Negative) Urine Urobilinogen (0.2-1.0) Ur Leukocyte Esterase (Negative) Urine RBC (0-2) Urine WBC (0-5) Ur Squamous Epith Cells (None-Few) Amorphous Sediment (None) Urine Bacteria (None) Stl C. diff Tox B Gene Negative (Negative) Stl C. diff 027-NAP1-BI Presumptive Negative (Negative) RPR Screen Lyme Disease Antibody SARS-CoV-2 (PCR) (Negative) Hepatitis A IgM Ab (Negative) Hep Bs Antigen (Negative) Hep B Core IgM Ab (Negative) Hep C Ab Index (AUSTYN) IV Hep C Ab Interp AUSTYN (Negative) Hepatitis Interpret HIV 1&2 Ab/P24 Ag 4thGn (Negative) Influenza Type A (PCR) (Negative) Influenza Type B (PCR) (Negative) RSV (PCR) (Negative) TB Test (QFT) Gold Plus Stool H. pylori Ag Negative (Negative) Lab Acknowledgement Test Added Test Added 08/25/23 08/25/23 08/25/23 Range/Units 09:17 07:02 06:34 WBC (4.50-11.00) K/uL RBC (4.30-5.90) m/uL Hgb (13.5-17.5) gm/dL Hct (37.0-53.0) % MCV (80-100) fL MCH (26-34) pg MCHC (32-36) gm/dL RDW Coeff of Les (11.5-15.5) % Plt Count (140-440) K/uL Neut % (Auto) (42.0-72.0) % Lymph % (Auto) (20-44) % [place] % (Auto) (0.0-11.0) % Eos % (Auto) (0.0-7.0) % Baso % (Auto) (0.0-3.0) % Neut # (Auto) (1.7-7.0) K/uL Lymph # (Auto) (0.90-2.90) K/uL [place] # (Auto) (0.00-0.90) K/UL Eos # (Auto) (0.00-0.50) K/uL Baso # (Auto) (0.00-0.30) K/uL Abs Immat Gran (auto) (0.00-0.30) K/uL Imm/Tot Granulo (auto) % Diff Slide Review (Acceptable) INR (0.91-1.10) APTT (23-33) Seconds VBG pH (7.32-7.43) VBG pCO2 (40-50) mmHG VBG pO2 (25-47) mmHG VBG HCO3 (21-28) mmol/L Sodium (135-149) mmol/L Potassium (3.6-5.1) mmol/L Chloride (96-114) mmol/L Carbon Dioxide (20-32) mmol/L Anion Gap (7-15) mEq/L BUN (7-30) mg/dL Creatinine (0.5-1.5) mg/dL Estimated Creat Clear Estimated GFR ml/min Glucose (60-115) mg/dL Lactate (0.5-1.9) mmol/L Calcium (8.4-10.6) mg/dL Ionized Calcium [place] (1.11-1.30) mmol/L Phosphorus (2.5-4.5) mg/dL Magnesium (1.5-2.6) mg/dL Iron (49-181) ug/dL TIBC (261-462) ug/dL % Saturation (20-50) % Total Bilirubin (0.1-1.5) mg/dL Direct Bilirubin (0.0-0.5) mg/dL AST (12-35) U/L ALT (4-50) U/L Alkaline Phosphatase (40-150) U/L Troponin I (0.01-0.04) ng/mL C-Reactive Protein (0.5-1.0) mg/dL NT-Pro-B Natriuret Pep pg/mL Total Protein (6.0-8.3) g/dL Albumin (3.3-5.0) g/dL Lipase (23-300) U/L PSA Screen (0.10-4.00) ng/mL Procalcitonin (<0.50) ng/mL TSH (0.270-4.20) uIU/mL Free T4 (0.70-1.85) ng/dL Cortisol ug/dL Cortisol 30 Minute 16.5 ug/dL Cortisol 60 Minute 17.9 ug/dL ACTH Urine Color Yellow (Yellow) Urine Appearance Clear (Clear) Urine pH 5.5 (5.0-8.5) Ur Specific [place] 1.020 (1.000-1.030) Urine Protein 2+ A (Negative) Urine Glucose (UA) Negative (Negative) Urine Ketones Negative (Negative) Urine Blood Trace-intact A (Negative) Urine Nitrite Negative (Negative) Urine Bilirubin Negative (Negative) Urine Urobilinogen 0.2 (0.2-1.0) Ur Leukocyte Esterase Negative (Negative) Urine RBC 0-2 (0-2) Urine WBC 2-5 (0-5) Ur Squamous Epith Cells Few (None-Few) Amorphous Sediment Many A (None) Urine Bacteria Few A (None) Stl C. diff Tox B Gene (Negative) Stl C. diff 027-NAP1-BI (Negative) RPR Screen Lyme Disease Antibody SARS-CoV-2 (PCR) (Negative) Hepatitis A IgM Ab (Negative) Hep Bs Antigen (Negative) Hep B Core IgM Ab (Negative) Hep C Ab Index (AUSTYN) IV Hep C Ab Interp AUSTYN (Negative) Hepatitis Interpret HIV 1&2 Ab/P24 Ag 4thGn (Negative) Influenza Type A (PCR) (Negative) Influenza Type B (PCR) (Negative) RSV (PCR) (Negative) TB Test (QFT) Gold Plus Stool H. pylori Ag (Negative) Lab Acknowledgement 08/25/23 08/24/23 08/24/23 Range/Units 06:00 11:07 09:07 WBC 21.79 H (4.50-11.00) K/uL RBC 3.96 L (4.30-5.90) m/uL Hgb 10.0 L (13.5-17.5) gm/dL Hct 31.8 L (37.0-53.0) % MCV 80 (80-100) fL MCH 25 L (26-34) pg MCHC 31 L (32-36) gm/dL RDW Coeff of Les 16.8 H (11.5-15.5) % Plt Count 313 (140-440) K/uL Neut % (Auto) 24.4 L (42.0-72.0) % Lymph % (Auto) 68.2 H (20-44) % [place] % (Auto) 5.7 (0.0-11.0) % Eos % (Auto) 0.6 (0.0-7.0) % Baso % (Auto) 0.2 (0.0-3.0) % Neut # (Auto) 5.30 (1.7-7.0) K/uL Lymph # (Auto) 14.90 H (0.90-2.90) K/uL [place] # (Auto) 1.20 H (0.00-0.90) K/UL Eos # (Auto) 0.10 (0.00-0.50) K/uL Baso # (Auto) 0.00 (0.00-0.30) K/uL Abs Immat Gran (auto) 0.20 (0.00-0.30) K/uL Imm/Tot Granulo (auto) 0.9 % Diff Slide Review (Acceptable) INR (0.91-1.10) APTT (23-33) Seconds VBG pH (7.32-7.43) VBG pCO2 (40-50) mmHG VBG pO2 (25-47) mmHG VBG HCO3 (21-28) mmol/L Sodium 132 L (135-149) mmol/L Potassium 3.5 L (3.6-5.1) mmol/L Chloride 103 (96-114) mmol/L Carbon Dioxide 21 (20-32) mmol/L Anion Gap 8 (7-15) mEq/L BUN 19 (7-30) mg/dL Creatinine 1.9 H (0.5-1.5) mg/dL Estimated Creat Clear 43.80 Estimated GFR 39 ml/min Glucose 102 (60-115) mg/dL Lactate (0.5-1.9) mmol/L Calcium 7.4 L (8.4-10.6) mg/dL Ionized Calcium [place] (1.11-1.30) mmol/L Phosphorus (2.5-4.5) mg/dL Magnesium (1.5-2.6) mg/dL Iron (49-181) ug/dL TIBC (261-462) ug/dL % Saturation (20-50) % Total Bilirubin (0.1-1.5) mg/dL Direct Bilirubin (0.0-0.5) mg/dL AST (12-35) U/L ALT (4-50) U/L Alkaline Phosphatase (40-150) U/L Troponin I (0.01-0.04) ng/mL C-Reactive Protein 2.5 H (0.5-1.0) mg/dL NT-Pro-B Natriuret Pep pg/mL Total Protein (6.0-8.3) g/dL Albumin (3.3-5.0) g/dL Lipase (23-300) U/L PSA Screen (0.10-4.00) ng/mL Procalcitonin 0.65 H (<0.50) ng/mL TSH (0.270-4.20) uIU/mL Free T4 (0.70-1.85) ng/dL Cortisol 13.4 ug/dL Cortisol 30 Minute ug/dL Cortisol 60 Minute ug/dL ACTH Urine Color (Yellow) Urine Appearance (Clear) Urine pH (5.0-8.5) Ur Specific [place] (1.000-1.030) Urine Protein (Negative) Urine Glucose (UA) (Negative) Urine Ketones (Negative) Urine Blood (Negative) Urine Nitrite (Negative) Urine Bilirubin (Negative) Urine Urobilinogen (0.2-1.0) Ur Leukocyte Esterase (Negative) Urine RBC (0-2) Urine WBC (0-5) Ur Squamous Epith Cells (None-Few) Amorphous Sediment (None) Urine Bacteria (None) Stl C. diff Tox B Gene (Negative) Stl C. diff 027-NAP1-BI (Negative) RPR Screen Lyme Disease Antibody SARS-CoV-2 (PCR) (Negative) Hepatitis A IgM Ab (Negative) Hep Bs Antigen (Negative) Hep B Core IgM Ab (Negative) Hep C Ab Index (AUSTYN) IV Hep C Ab Interp AUSTYN (Negative) Hepatitis Interpret HIV 1&2 Ab/P24 Ag 4thGn Negative (Negative) Influenza Type A (PCR) (Negative) Influenza Type B (PCR) (Negative) RSV (PCR) (Negative) TB Test (QFT) Gold Plus Stool H. pylori Ag (Negative) Lab Acknowledgement Test Added Test Added 08/24/23 08/23/23 08/23/23 Range/Units 05:54 22:35 20:05 WBC 12.86 H (4.50-11.00) K/uL RBC 4.42 (4.30-5.90) m/uL Hgb 11.2 L (13.5-17.5) gm/dL Hct 34.2 L (37.0-53.0) % MCV 77 L (80-100) fL MCH 25 L (26-34) pg MCHC 33 (32-36) gm/dL RDW Coeff of Les 16.0 H (11.5-15.5) % Plt Count 284 (140-440) K/uL Neut % (Auto) 35.1 L (42.0-72.0) % Lymph % (Auto) 55.7 H (20-44) % [place] % (Auto) 6.6 (0.0-11.0) % Eos % (Auto) 0.8 (0.0-7.0) % Baso % (Auto) 0.2 (0.0-3.0) % Neut # (Auto) 4.50 (1.7-7.0) K/uL Lymph # (Auto) 7.20 H (0.90-2.90) K/uL [place] # (Auto) 0.80 (0.00-0.90) K/UL Eos # (Auto) 0.10 (0.00-0.50) K/uL Baso # (Auto) 0.00 (0.00-0.30) K/uL Abs Immat Gran (auto) 0.20 (0.00-0.30) K/uL Imm/Tot Granulo (auto) 1.6 % Diff Slide Review (Acceptable) INR (0.91-1.10) APTT (23-33) Seconds VBG pH (7.32-7.43) VBG pCO2 (40-50) mmHG VBG pO2 (25-47) mmHG VBG HCO3 (21-28) mmol/L Sodium 128 L 122 L* (135-149) mmol/L Potassium 3.6 (3.6-5.1) mmol/L Chloride 97 (96-114) mmol/L Carbon Dioxide 21 (20-32) mmol/L Anion Gap 10 (7-15) mEq/L BUN 21 (7-30) mg/dL Creatinine 1.6 H (0.5-1.5) mg/dL Estimated Creat Clear 52.02 Estimated GFR 48 ml/min Glucose 107 (60-115) mg/dL Lactate 1.7 (0.5-1.9) mmol/L Calcium 8.0 L (8.4-10.6) mg/dL Ionized Calcium [place] (1.11-1.30) mmol/L Phosphorus (2.5-4.5) mg/dL Magnesium (1.5-2.6) mg/dL Iron (49-181) ug/dL TIBC (261-462) ug/dL % Saturation (20-50) % Total Bilirubin (0.1-1.5) mg/dL Direct Bilirubin (0.0-0.5) mg/dL AST (12-35) U/L ALT (4-50) U/L Alkaline Phosphatase (40-150) U/L Troponin I 0.02 (0.01-0.04) ng/mL C-Reactive Protein 2.6 H (0.5-1.0) mg/dL NT-Pro-B Natriuret Pep pg/mL Total Protein (6.0-8.3) g/dL Albumin (3.3-5.0) g/dL Lipase (23-300) U/L PSA Screen 1.03 (0.10-4.00) ng/mL Procalcitonin 0.75 H 0.74 H (<0.50) ng/mL TSH (0.270-4.20) uIU/mL Free T4 (0.70-1.85) ng/dL Cortisol ug/dL Cortisol 30 Minute ug/dL Cortisol 60 Minute ug/dL ACTH Urine Color (Yellow) Urine Appearance (Clear) Urine pH (5.0-8.5) Ur Specific [place] (1.000-1.030) Urine Protein (Negative) Urine Glucose (UA) (Negative) Urine Ketones (Negative) Urine Blood (Negative) Urine Nitrite (Negative) Urine Bilirubin (Negative) Urine Urobilinogen (0.2-1.0) Ur Leukocyte Esterase (Negative) Urine RBC (0-2) Urine WBC (0-5) Ur Squamous Epith Cells (None-Few) Amorphous Sediment (None) Urine Bacteria (None) Stl C. diff Tox B Gene (Negative) Stl C. diff [id number]-[id number] (Negative) RPR Screen Lyme Disease Antibody SARS-CoV-2 (PCR) (Negative) Hepatitis A IgM Ab (Negative) Hep Bs Antigen (Negative) Hep B Core IgM Ab (Negative) Hep C Ab Index (AUSTYN) IV Hep C Ab Interp AUSTYN (Negative) Hepatitis Interpret HIV 1&2 Ab/P24 Ag 4thGn (Negative) Influenza Type A (PCR) (Negative) Influenza Type B (PCR) (Negative) RSV (PCR) (Negative) TB Test (QFT) Gold Plus Stool H. pylori Ag (Negative) Lab Acknowledgement Test Added 08/23/23 08/23/23 08/23/23 Range/Units 15:27 14:53 14:52 WBC (4.50-11.00) K/uL RBC (4.30-5.90) m/uL Hgb (13.5-17.5) gm/dL Hct (37.0-53.0) % MCV (80-100) fL MCH (26-34) pg MCHC (32-36) gm/dL RDW Coeff of Les (11.5-15.5) % Plt Count (140-440) K/uL Neut % (Auto) (42.0-72.0) % Lymph % (Auto) (20-44) % [place] % (Auto) (0.0-11.0) % Eos % (Auto) (0.0-7.0) % Baso % (Auto) (0.0-3.0) % Neut # (Auto) (1.7-7.0) K/uL Lymph # (Auto) (0.90-2.90) K/uL [place] # (Auto) (0.00-0.90) K/UL Eos # (Auto) (0.00-0.50) K/uL Baso # (Auto) (0.00-0.30) K/uL Abs Immat Gran (auto) (0.00-0.30) K/uL Imm/Tot Granulo (auto) % Diff Slide Review (Acceptable) INR (0.91-1.10) APTT (23-33) Seconds VBG pH (7.32-7.43) VBG pCO2 (40-50) mmHG VBG pO2 (25-47) mmHG VBG HCO3 (21-28) mmol/L Sodium (135-149) mmol/L Potassium (3.6-5.1) mmol/L Chloride (96-114) mmol/L Carbon Dioxide (20-32) mmol/L Anion Gap (7-15) mEq/L BUN (7-30) mg/dL Creatinine (0.5-1.5) mg/dL Estimated Creat Clear Estimated GFR ml/min Glucose (60-115) mg/dL Lactate (0.5-1.9) mmol/L Calcium (8.4-10.6) mg/dL Ionized Calcium [place] (1.11-1.30) mmol/L Phosphorus (2.5-4.5) mg/dL Magnesium (1.5-2.6) mg/dL Iron (49-181) ug/dL TIBC (261-462) ug/dL % Saturation (20-50) % Total Bilirubin (0.1-1.5) mg/dL Direct Bilirubin (0.0-0.5) mg/dL AST (12-35) U/L ALT (4-50) U/L Alkaline Phosphatase (40-150) U/L Troponin I (0.01-0.04) ng/mL C-Reactive Protein (0.5-1.0) mg/dL NT-Pro-B Natriuret Pep pg/mL Total Protein (6.0-8.3) g/dL Albumin (3.3-5.0) g/dL Lipase (23-300) U/L PSA Screen (0.10-4.00) ng/mL Procalcitonin (<0.50) ng/mL TSH (0.270-4.20) uIU/mL Free T4 (0.70-1.85) ng/dL Cortisol ug/dL Cortisol 30 Minute ug/dL Cortisol 60 Minute ug/dL ACTH Urine Color (Yellow) Urine Appearance (Clear) Urine pH (5.0-8.5) Ur Specific [place] (1.000-1.030) Urine Protein (Negative) Urine Glucose (UA) (Negative) Urine Ketones (Negative) Urine Blood (Negative) Urine Nitrite (Negative) Urine Bilirubin (Negative) Urine Urobilinogen (0.2-1.0) Ur Leukocyte Esterase (Negative) Urine RBC (0-2) Urine WBC (0-5) Ur Squamous Epith Cells (None-Few) Amorphous Sediment (None) Urine Bacteria (None) Stl C. diff Tox B Gene (Negative) Stl C. diff [id number]-NAP1-BI (Negative) RPR Screen Lyme Disease Antibody SARS-CoV-2 (PCR) (Negative) Hepatitis A IgM Ab (Negative) Hep Bs Antigen (Negative) Hep B Core IgM Ab (Negative) Hep C Ab Index (AUSTYN) IV Hep C Ab Interp AUSTYN (Negative) Hepatitis Interpret HIV 1&2 Ab/P24 Ag 4thGn (Negative) Influenza Type A (PCR) (Negative) Influenza Type B (PCR) (Negative) RSV (PCR) (Negative) TB Test (QFT) Gold Plus Stool H. pylori Ag (Negative) Lab Acknowledgement Test Added Test Added Test Added 08/23/23 08/23/23 Range/Units 10:49 10:31 WBC 15.41 H (4.50-11.00) K/uL RBC 4.48 (4.30-5.90) m/uL Hgb 11.2 L (13.5-17.5) gm/dL Hct 34.1 L (37.0-53.0) % MCV 76 L (80-100) fL MCH 25 L (26-34) pg MCHC 33 (32-36) gm/dL RDW Coeff of Les 15.8 H (11.5-15.5) % Plt Count 300 (140-440) K/uL Neut % (Auto) 33.9 L (42.0-72.0) % Lymph % (Auto) 56.5 H (20-44) % [place] % (Auto) 6.9 (0.0-11.0) % Eos % (Auto) 0.5 (0.0-7.0) % Baso % (Auto) 0.3 (0.0-3.0) % Neut # (Auto) 5.20 (1.7-7.0) K/uL Lymph # (Auto) 8.70 H (0.90-2.90) K/uL [place] # (Auto) 1.10 H (0.00-0.90) K/UL Eos # (Auto) 0.10 (0.00-0.50) K/uL Baso # (Auto) 0.00 (0.00-0.30) K/uL Abs Immat Gran (auto) 0.30 (0.00-0.30) K/uL Imm/Tot Granulo (auto) 1.9 % Diff Slide Review Acceptable Review (Acceptable) INR 1.20 H (0.91-1.10) APTT 43 H (23-33) Seconds VBG pH (7.32-7.43) VBG pCO2 (40-50) mmHG VBG pO2 (25-47) mmHG VBG HCO3 (21-28) mmol/L Sodium 119 L* (135-149) mmol/L Potassium 3.6 (3.6-5.1) mmol/L Chloride 91 L (96-114) mmol/L Carbon Dioxide 20 (20-32) mmol/L Anion Gap 8 (7-15) mEq/L BUN 21 (7-30) mg/dL Creatinine 1.4 (0.5-1.5) mg/dL Estimated Creat Clear 59.45 Estimated GFR 56 ml/min Glucose 116 H (60-115) mg/dL Lactate 1.5 (0.5-1.9) mmol/L Calcium 7.6 L (8.4-10.6) mg/dL Ionized Calcium [place] (1.11-1.30) mmol/L Phosphorus 4.5 (2.5-4.5) mg/dL Magnesium (1.5-2.6) mg/dL Iron 41 L (49-181) ug/dL TIBC 214 L (261-462) ug/dL % Saturation 19 L (20-50) % Total Bilirubin 0.5 (0.1-1.5) mg/dL Direct Bilirubin 0.2 (0.0-0.5) mg/dL AST 64 H (12-35) U/L ALT 41 (4-50) U/L Alkaline Phosphatase 69 (40-150) U/L Troponin I 0.01 (0.01-0.04) ng/mL C-Reactive Protein 2.4 H (0.5-1.0) mg/dL NT-Pro-B Natriuret Pep 540 pg/mL Total Protein 6.7 (6.0-8.3) g/dL Albumin 3.1 L (3.3-5.0) g/dL Lipase 132 (23-300) U/L PSA Screen (0.10-4.00) ng/mL Procalcitonin 0.74 H (<0.50) ng/mL TSH 5.320 H (0.270-4.20) uIU/mL Free T4 1.65 (0.70-1.85) ng/dL Cortisol ug/dL Cortisol 30 Minute ug/dL Cortisol 60 Minute ug/dL ACTH Urine Color Yellow (Yellow) Urine Appearance Clear (Clear) Urine pH 6.0 (5.0-8.5) Ur Specific [place] 1.010 (1.000-1.030) Urine Protein 1+ A (Negative) Urine Glucose (UA) Negative (Negative) Urine Ketones Negative (Negative) Urine Blood Trace-intact A (Negative) Urine Nitrite Negative (Negative) Urine Bilirubin Negative (Negative) Urine Urobilinogen 0.2 (0.2-1.0) Ur Leukocyte Esterase Negative (Negative) Urine RBC 0-2 (0-2) Urine WBC 0-2 (0-5) Ur Squamous Epith Cells Few (None-Few) Amorphous Sediment (None) Urine Bacteria Few A (None) Stl C. diff Tox B Gene (Negative) Stl C. diff [id number] (Negative) RPR Screen Lyme Disease Antibody SARS-CoV-2 (PCR) Negative SARS-CoV-2 (Negative) Hepatitis A IgM Ab (Negative) Hep Bs Antigen (Negative) Hep B Core IgM Ab (Negative) Hep C Ab Index (AUSTYN) IV Hep C Ab Interp AUSTYN (Negative) Hepatitis Interpret HIV 1&2 Ab/P24 Ag 4thGn (Negative) Influenza Type A (PCR) Negative PCR FLU A (Negative) Influenza Type B (PCR) Negative PCR FLU B (Negative) RSV (PCR) Negative PCR RSV (Negative) TB Test (QFT) Gold Plus Stool H. pylori Ag (Negative) Lab Acknowledgement Assessment and Plan Assessment and Plan Assessment and Plan: This a 63 y/o male with history of colectomy for ulcerative colitis in 1977, s/p remote ileostomy takedown and surgically placed internal pouch in 1994, currently on no meds for UC, who presents with c/o of >1 month of weakness, low appetite and lately nausea w/o vomiting. As per notes, the patient was hospitalized x bronchitis about 1 month ago then in Mid he with influenza and was treated symptomatically after which he started to have low appetite. August 06 he was admitted to the hospital with a possible small-bowel obstruction. At that time he was having bleeding from his internal pouch. The bleeding stopped after a day or 2 but then he developed diarrhea and was diagnosed with pouchitis on August 11. He was treated with Cipro and Flagyl and finished that treatment 3 days ago. His abdominal pain and diarrhea and bleeding have all stopped. During that last part of July he also reported having no appetite. They concluded he did not have a small-bowel obstruction. He was seen in May with some chest pain. He notes that he has had exertional dyspnea and chest pain for some time. He was found to have a left bundle branch block of unknown duration. He had a stress echo test In June which was unremarkable. The results were somewhat indeterminate due to a small wall motion abnormality possibly related to his left bundle branch block. On August [address] of his chest which showed no PE. Apparently pt also with SOB and GAN in May, normal PFTs in May, stress echo in Jun showed LBBB and small septal wall motion abnl. Per ED note, the patient presented on 08/23/23 to [facility] with c/o ongoing weakness for the last 3-4 months, he has been to the emergency room twice now, admitted once for what sounds like pouchitis and possibly a little bit of bleeding from his ostomy. Finished a course of Cipro and Flagyl last week, and just really has not recovered. No c/o vomiting but has some nausea, anorexia, weight loss and weakness. This started approximately 3-4 months ago, any were having him see Cardiology. They actually had an appointment to get scoped at [facility] but they would not do it in like fill without a Cardiology consult. No reports of subjective fevers or chills at home but spikes a fever to 101.4 in the hospital, no chest pain, abdominal pain, or back pain, no significant respiratory symptoms. Initial VS 105/69, HR 98, RR 18, O2 sat 97% RA, Temp 98.0, initial labs c/w leukocytosis WBC 15.4K, PMN 33.9%, Hg 11.2, Hct 34, plat count 300K, serum Cr 1.4, AST 64, ALT 41, T bili 0.5, CRP 2.4, Procal 0.74, lipase WNL, limited RVP negative for Flu/RSV/COVID-19. Pt found to have hyponatremia, serum Na 119 on admission?132 today, was managed w fluid restriction and sodium tabs. Also with KIM Sr creatinine 1.4 --> 1.6 --> 1.9, pt noted to have hematochezia from pouch 08/24 and 08/25, RUQ US unrevealing, EGD planned, on IV protonix, while in the hospital he spikes a fever to 11.4 and his WBC initially went down then up trending 14.5>12.8<21.8K, UA negative, blood and urine Cx were sent, pt was started on empiric zosyn + IV vancomycin. Blood cx remain NGTD. Urine cx <50K mixed gram positive odessa, CXR clear lungs, head CT no acute findings. Renal US normal. CT chest/a/p: no acute findings within chest, postsurgical changes of previous rectal resection with creation of a neorectum in a right lower quadrant ostomy. 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 ?Prominent right lower quadrant lymph nodes, likely reactive. No bowel obstruction. No clear infectious source identified, renal function worsening, primary team stopped systemic IV Abx and tele ID was consulted on 08/25/23 for recommendation Re further infectious work up and management. 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 Renal US unrevealing. Pt with no localizing symptoms other than anorexia, weakness and nausea with some bleeding from stoma site per primary team. s/p EGD, findings c/w erosive esophagitis, erosive gastropathy and duodenopathy. Biopsies are pending. Pt clinically improving, afebrile, HD stable with improved labs. Update 08/27/22 Pt remains afebrile off systemic Abx, his WBC trended down off antibiotics, renal function also improved, EGD-pouch scope 08/26 shows erosive esophagitis, erosive gastropathy and duodenopathy. Biopsies are pending. H pylori negative. Per note, as of today pt states that he is finally starting to feel a little better. His appetite has improved, and he denies nausea at this time. Infectious work up reviewed, some labs are still pending, stool C diff negative, hep A, B and C serologies negative, HIV ab/ag combo negative. Blood Cx NGTD. Lyme serology, RPR and serum Gold quant pending. Echocardiogram this admission shows decreased EF at 40-45% Recommendations: -F/up final blood culture -Follow up final pending infectious work up as outlined in my initial consult note (RPR, lyme test, serum gold quant?) -F/up biopsy results, I had asked primary team/Dr. Antunez to ask GI to send biopsies for histopath and bacterial/viral/fungal staining. ? -Consider surgery input given the CT a/p findings of entero-enteric fistula between a loop of small bowel and a portion of bowel involved in neorectum formation. -Continue to observe patient while off systemic IV abx. He remains stable with improved leukocytosis off Abx since 08/25. -Thanks for the consult, tele ID will sign off, you can call us with any questions or if any of the above mentioned pending infectious work up turn positive. Valerie Morris MD? Division of Infectious Disease [facility] ID Connect
[2023-08-27 19:01] LABS: Rapid Plasma Reagin (RPR) Non Reactive (Non Reactive)
--- NOTE | 2023-08-27 19:39 | PC.NURSE ---
PATIENT TOLERATING REGULAR DIET WITH NO C/O N/V. DECLINED SUPPER THOUGH REPORTING HE WAS STILL FEELING FULL. AMBULATING IN HALLWAY. BOWEL SOUNDS ACTIVE. DENIES ABDOMINAL PAIN BUT REPORTED NECK/UPPER BACK PAIN THAT WAS IMPROVED WITH ULTRAM AND A NECK MASSAGE FROM HIS .
[2023-08-28] MEDS: TRAMADOL HCL 50 MG TABLET PO (00:33)
[2023-08-28 02:15] VITALS: BP 115/69; PULSE 107; RESP 18; TEMP 36.7; O2SAT 92
--- NOTE | 2023-08-28 06:26 | PC.NURSE ---
Addendum entered by Darlyn Jolley 08/28/23 06:37: Pt's internal colostomy output at beginning of shift 1900 first stool was dark brown/red/maroon in color updated no new orders, continuing plan of care. All stool output after was light brown. Original Note: Pt is alert and oriented x3. Pt reports 7/10 headache, pain managed with PRN medications. Pt?denies pain, chest pain, SOB, and N/V.?Pt?s internal colostomy pouch is draining, pt empties it himself, Q3-4H.?Pt slept intermittently throughout night. Night uneventful.??
[2023-08-28 06:34] LABS: HCO3 VBG 23 mmol/L (21-28); PCO2 VBG 38 mmHG (40-50); PO2 VBG 28.1 mmHG (25-47); pH VBG 7.385 (7.32-7.43)
[2023-08-28 06:38] LABS: Basophils Percent Auto 0.2 % (0.0-3.0); Eosinophils Percent Auto 0.8 % (0.0-7.0); Hematocrit 28.5 % (37.0-53.0); Immature Granulocytes Pct Auto 1.3 %; Lymphocytes Percent Auto 69.3 % (20-44); Mean Corpuscular HGB Conc 32 gm/dL (32-36); Mean Corpuscular Hemoglobin 25 pg (26-34); Mean Corpuscular Volume 80 fL (80-100); Monocytes Percent Auto 6.3 % (0.0-11.0); Neutrophils Percent Auto 22.1 % (42.0-72.0); Platelet Count* 251 K/uL (140-440); RDW Coefficient of Variation % 17.3 % (11.5-15.5); Red Blood Count 3.57 m/uL (4.30-5.90); White Blood Count* 11.75 K/uL (4.50-11.00)
[2023-08-28 07:12] LABS: Slide Review Reflex Yes
[2023-08-28 07:13] LABS: Slide Review Acceptable Review (Acceptable)
[2023-08-28 07:53] LABS: Chloride* 109 mmol/L (96-114); Sodium* 132 mmol/L (135-149)
[2023-08-28 07:56] LABS: Creatinine* 1.5 mg/dL (0.5-1.5); Est. Creatinine Clearance* 55.49; Estimated Glomerular Filt Rate 51 ml/min
[2023-08-28 07:57] LABS: Anion Gap 4 mEq/L (7-15); Blood Urea Nitrogen* 13 mg/dL (7-30); Calcium* 7.2 mg/dL (8.4-10.6); Carbon Dioxide* 19 mmol/L (20-32); Glucose* 102 mg/dL (60-115)
[2023-08-28 09:00] VITALS: BP 115/66; PULSE 100; PULSE 101; RESP 18; TEMP 36.8; O2SAT 94
[2023-08-28] MEDS: SODIUM CHLORIDE 1 GM TABLET PO ×2 (09:32→16:30)
[2023-08-28] MEDS: PANTOPRAZOLE SODIUM 40 MG INJ IVP (09:33)
[2023-08-28] MEDS: SODIUM CHLORIDE 0.9 % (FLUSH) 10 ML SYRINGE 5 ML IVF (09:33)
--- NOTE | 2023-08-28 11:21 | P.DS_ITS ---
DS: Providers Provider Date Seen: 08/28/23 Date of admission: 08/23/23 14:41 Primary care physician: Rashawn Perez MD Admitting Clinician: Viri Russo MD Consults: 08/23/23 14:44 Consult to Nutrition [CONS] Routine Comment: Reason for consult:: Nutritional Consult 08/25/23 12:42 Consult to Infectious Diseases [CONS] Urgent Comment: Consulting Provider: Infectious Disease Connect Consult priority: Urgent Has provider been notified: No Call back required?: Yes Attending Physician on discharge: Zahida Gatica [facility] Date of Discharge: 08/28/23 DS: Diagnosis Discharge Diagnosis (1) Acute hyponatremia: Status: Acute Problem details: Likely due to poor intake in recent weeks with acute loss of appetite and nausea during July 2023 when he had influenza. Initially overcorrected with fairly low volume of NS. Discharged with salt tablets, instructed to take for the next 5-7 days, with close follow-up with PCP, recheck sodium level, and monitoring for CHF decompensation. Weight is up but appropriately so given resumption of diet. (2) Fever: Status: Acute Problem details: Etiology fever and leukocytosis unclear. Infectious Disease consulted. 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 Renal US unrevealing. Pt with no localizing symptoms other than anorexia, weakness and nausea with some bleeding from stoma site per primary team. s/p EGD, findings c/w erosive esophagitis, erosive gastropathy and duodenopathy. Biopsies are pending at time of discharge, to be followed up with PCP/General surgery. (3) Loss of appetite: Status: Acute Problem details: Etiology unclear, but suspect hyponatremia as appetite improved with resolution. RUQ us and CT CAP reassuring. EGD 08/26 shows erosive esophagitis, erosive gastropathy and duodenopathy. Biopsies are pending. H pylori negative. (4) Weight loss: Status: Acute Problem details: 10 lb weight loss since 06/10. Weight improved as appetite improved (5) Adrenal insufficiency: Status: Acute Problem details: Patient had cortisol stim test. Initial cortisol was 13.4, 16.5 at 30 minutes and 17.9 at 60 minutes indicating inadequate response and therefore consistent with adrenal insufficiency. BP and Sodium levels improved and currently no indication he needs exogenous steroids. -ACTH pending at time of discharge, follow-up with PCP (6) ATN (acute tubular necrosis): Status: Acute Problem details: Suspected secondary to Zosyn use during hospitalization, which was discontinued. Creatinine 1.5 on day of discharge, baseline 0.9 (08/07/23) to 1.16 (Jun 10), 2+ protein and sediment on UA from 08/24, normal renal u/s 08/24 (7) Left bundle branch block: Status: Acute Problem details: -identified in June of 2023 during a stress echo exam (8) HFrEF (heart failure with reduced ejection fraction): Status: Acute Problem details: Echocardiogram shows decreased EF at 40-45%, without evidence of decompensation during hospitalization. Close follow-up with PCP while on sodium tablets. (9) Exertional chest pain: Status: Acute Problem details: - recent positive stress echo, but achieved 10 Mets. Symptomatic during exam. Developed left bundle branch block. - troponin neg on admission. Tele reveals LBBB. - Has outpatient follow-up with Cardiology at the end of August (10) Ulcerative colitis: Status: Acute Problem details: - status post colectomy in 1977 - h/o of SBO and revision of ostomy in 1993 - no treatment for UC since original surgery in late (11) GI bleeding: Status: Acute Problem details: Hemoglobin stable - hematochezia noted from pouch 08/24, 08/25, 08/26 - 2 weeks ago had dark red blood in his stool. Resolved after couple days. - Right upper quadrant ultrasound neg, 08/24/23 - Continue IV protonix daily - EGD, pouch scope 08/26 with esophagitis, gastritis and duodenitis - H Pylori stool antigen ordered (neg) - CDIFF neg - Dr. Santacruz reviewed MRI of abdomen - no significant concerns Discussed with [facility] and consider capsule endoscopy outpatient following discharge (12) Hypocalcemia: Status: Acute Problem details: mild, replacement ordered. Outpatient follow-up (13) Weakness: Status: Acute Problem details: - multifactorial - recent GI bleed (no transfusion), recent influenza A, recent hyponatremia - Adrenal insufficiency (ongoing workup pending), follow-up with PCP for pending results at time of discharge DS: Summary Hospital Course Hospital Course: [age] year old male past medical history significant for colectomy for ulcerative colitis in 1977, status post remote ileostomy takedown and surgical goal internal pouch in 1994, bronchitis, influenza was admitted to the medical floor for GI bleed, weight loss, hyponatremia. Course of care and details as noted above. Details of stay as above. Will need close outpatient follow-up with PCP to monitor electrolyte derangement, recheck sodium, and follow-up on pending lab results. General surgery pathology reports pending. Recommending outpatient follow-up with [facility] for possible further scope. On day of discharge, patient's appetite significantly improved, tolerating without nausea, vomiting. No further bloody stools. Remainder of chronic medical comorbidities were monitored and managed with home medications. Status at Discharge Overall status at discharge: patient is back to baseline Time Spent with Patient Time attestation: Total time spent providing and/or coordinating discharge services: Time spent: Greater than 30 minutes Exam Narrative: Exam Narrative: PHYSICAL EXAM General: Pleasant, conversant, NAD Cardiovascular: RRR Pulmonary: No dyspnea Abdomen: Soft NTTP Neurological: Alert, answering questions appropriately Skin: Warm, dry. Const: Vital Signs, click to edit/add: Vital Signs - 24 hr 08/27/23 12:15 08/27/23 15:00 08/27/23 16:00 Temperature 97.7 F Pulse Rate 97 Pulse Rate [Right Pulse Oximeter] 89 99 Respiratory Rate 18 18 Blood Pressure [Le ft Arm] 121/71 Blood Pressure [Ri ght Arm] Pulse Oximetry 97 Oxygen Delivery Me thod Room Air 08/27/23 16:00 08/27/23 21:45 08/27/23 22:51 Temperature 98.2 F 99.0 F Pulse Rate 103 H Pulse Rate [Right Pulse Oximeter] 99 98 Respiratory Rate 18 20 Blood Pressure [Le ft Arm] 106/62 Blood Pressure [Ri ght Arm] 119/70 Pulse Oximetry 95 97 Oxygen Delivery Me thod Room Air Room Air 08/27/23 23:00 08/27/23 23:00 08/28/23 02:15 Temperature 98.8 F 98.0 F Pulse Rate Pulse Rate [Right Pulse Oximeter] 100 100 107 H Respiratory Rate 18 18 Blood Pressure [Le ft Arm] Blood Pressure [Ri ght Arm] 117/70 115/69 Pulse Oximetry 98 92 Oxygen Delivery Me thod Room Air Room Air DS: Data Data Completed and Pending Labs on day of discharge: Labs from last 24 hours 08/28/23 08/26/23 06:27 06:15 WBC 11.75 H RBC 3.57 L Hgb 9.0 L Hct 28.5 L MCV 80 MCH 25 L MCHC 32 RDW Coeff of Les 17.3 H Plt Count 251 Neut % (Auto) 22.1 L Lymph % (Auto) 69.3 H [place] % (Auto) 6.3 Eos % (Auto) 0.8 Baso % (Auto) 0.2 Neut # (Auto) 2.60 Lymph # (Auto) 8.10 H [place] # (Auto) 0.70 Eos # (Auto) 0.10 Baso # (Auto) 0.00 Abs Immat Gran (auto) 0.20 Imm/Tot Granulo (auto) 1.3 Diff Slide Review Acceptable Review VBG pH 7.385 VBG pCO2 38 L VBG pO2 28.1 VBG HCO3 23 Sodium 132 L Potassium 4.0 Chloride 109 Carbon Dioxide 19 L Anion Gap 4 L BUN 13 Creatinine 1.5 Estimated Creat Clear 55.49 Estimated GFR 51 Glucose 102 Calcium 7.2 L Ionized Calcium Brea 1.10 L Magnesium 2.0 C-Reactive Protein 2.0 H RPR Screen Non Reactive Hepatitis A IgM Ab Negative Hep Bs Antigen Negative Hep B Core IgM Ab Negative Hep C Ab Index (AUSTYN) 0.32 Hep C Ab Interp AUSTYN Negative Hepatitis Interpret See Note Preliminary micro results at discharge 08/23/23 22:35 Blood Culture - Preliminary Blood NO GROWTH AFTER 96 HOURS 08/23/23 22:30 Blood Culture - Preliminary Blood NO GROWTH AFTER 96 HOURS 08/25/23 15:40 Blood Culture - Preliminary Blood NO GROWTH AFTER 48 HOURS 08/25/23 15:40 Blood Culture - Preliminary Blood NO GROWTH AFTER 48 HOURS Discharge Plan Discharge Disposition: Home, Self-Care Date of Admission: 08/23/23 14:41 Attending Provider on Discharge: Zahida Gatica Primary Care Provider: Rashawn Perez Condition: Improved Anticipated Discharge Date/Time: 08/28/23 14:25 Discharge Medications: New ferrous sulfate 325 mg (65 mg iron) Tablet 650 mg PO Q48H Qty: 30 0RF calcium carbonate-vitamin D3 [Oyster Shell Calcium-Vit D3] 500 mg-5 mcg (200 unit) Tablet 1 tab PO BID Qty: 60 0RF sodium chloride 1,000 mg Tablet,Soluble 1,000 mg PO TIDWM Qty: 90 0RF Continued famotidine 40 mg tablet 40 mg PO QPM diclofenac sodium [Arthritis Pain (diclofenac)] 1 % gel 2 g topical QID Rx Instructions: apply to single elbow, wrist or hand; for hand includes palm/fingers/back of hand sildenafil [Viagra] 50 mg tablet 50 mg PO DAILY PRN Rx Instructions: administer 30 minutes to 4 hours before activity Discontinued cholecalciferol (vitamin D3) [Vitamin D3] 25 mcg (1,000 unit) capsule 25 mcg PO DAILY Discharge Orders: Discharge Order (Routine); Ordered 08/28/23 Ordered By: Zahida Gatica Patient Education: Iron Supplements (By mouth), Calcium Supplement (By mouth), Sodium Chloride (By mouth), Gastrointestinal Bleeding (GEN), Hyponatremia (GEN) Additional Instructions: Take sodium tablets as prescribed for 5-7 days. PCP to recheck sodium levels. Pending labs: ACTH, Lyme, QFT, UGI Pathology Recommend outpatient follow up with [facility] - consider capsule endoscopy Activity Level: No Restrictions Discharge Diet: Regular Follow Up Appointments: Rashawn Perez MD [Primary Care Provider] - None (Make an appointment to be seen in 5-7 days for post hospital follow up, GI bleed, further work up adrenal insufficiency, follow up pending labs. Recommend outpatient follow up with [facility] - consider capsule endoscopy) Forms: [facility] Info Instructions
--- NOTE | 2023-08-28 11:41 | P.IMPN_ITS ---
Progress Note: A&P Assessment and plan (1) Acute hyponatremia: Problem details: Likely due to poor intake in recent weeks with acute loss of appetite and nausea during July 2023 when he had influenza. Initially overcorrected with fairly low volume of NS. Discharged with salt tablets, instructed to take for the next 5-7 days, with close follow-up with PCP, recheck sodium level, and monitoring for CHF decompensation. Weight is up but appropriately so given resumption of diet. Status: Acute (2) Fever: Problem details: Etiology fever and leukocytosis unclear. Infectious Disease consulted. 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 Renal US unrevealing. Pt with no localizing symptoms other than anorexia, weakness and nausea with some bleeding from stoma site per primary team. s/p EGD, findings c/w erosive esophagitis, erosive gastropathy and duodenopathy. Biopsies are pending at time of discharge, to be followed up with PCP/General surgery. Status: Acute (3) Loss of appetite: Problem details: Etiology unclear, but suspect hyponatremia as appetite improved with resolution. RUQ us and CT CAP reassuring. EGD 08/26 shows erosive esophagitis, erosive gastropathy and duodenopathy. Biopsies are pending. H pylori negative. Status: Acute (4) Weight loss: Problem details: 10 lb weight loss since 06/10. Weight improved as appetite improved Status: Acute (5) Adrenal insufficiency: Problem details: Patient had cortisol stim test. Initial cortisol was 13.4, 16.5 at 30 minutes and 17.9 at 60 minutes indicating inadequate response and therefore consistent with adrenal insufficiency. BP and Sodium levels improved and currently no indication he needs exogenous steroids. -ACTH pending at time of discharge, follow-up with PCP Status: Acute (6) ATN (acute tubular necrosis): Problem details: Suspected secondary to Zosyn use during hospitalization, which was discontinued. Creatinine 1.5 on day of discharge, baseline 0.9 (08/07/23) to 1.16 (Jun 10), 2+ protein and sediment on UA from 08/24, normal renal u/s 08/24 Status: Acute (7) Left bundle branch block: Problem details: -identified in June of 2023 during a stress echo exam Status: Acute (8) HFrEF (heart failure with reduced ejection fraction): Problem details: Echocardiogram shows decreased EF at 40-45%, without evidence of decompensation during hospitalization. Close follow-up with PCP while on sodium tablets. Status: Acute (9) Exertional chest pain: Problem details: - recent positive stress echo, but achieved 10 Mets. Symptomatic during exam. Developed left bundle branch block. - troponin neg on admission. Tele reveals LBBB. - Has outpatient follow-up with Cardiology at the end of August Status: Acute (10) Ulcerative colitis: Problem details: - status post colectomy in 1977 - h/o of SBO and revision of ostomy in 1993 - no treatment for UC since original surgery in late Status: Acute (11) GI bleeding: Problem details: Hemoglobin stable - hematochezia noted from pouch 08/24, 08/25, 08/26 - 2 weeks ago had dark red blood in his stool. Resolved after couple days. - Right upper quadrant ultrasound neg, 08/24/23 - Continue IV protonix daily - EGD, pouch scope 08/26 with esophagitis, gastritis and duodenitis - H Pylori stool antigen ordered (neg) - CDIFF neg - Dr. Santacruz reviewed MRI of abdomen - no significant concerns Discussed with [facility] and consider capsule endoscopy outpatient following discharge Status: Acute (12) Hypocalcemia: Problem details: mild, replacement ordered. Outpatient follow-up Status: Acute (13) Weakness: Problem details: - multifactorial - recent GI bleed (no transfusion), recent influenza A, recent hyponatremia - Adrenal insufficiency (ongoing workup pending), follow-up with PCP for pending results at time of discharge Status: Acute Time Spent With Patient Total time spent: Total time spent caring for the patient today was 60 minutes. This includes time spent for the visit reviewing the chart, time spent during the visit, time spent after the visit and documentation and planning in coordination of care. Subjective Date Seen: 08/28/23 Exam Narrative: Exam Narrative: PHYSICAL EXAM General: Pleasant, conversant, NAD HEENT: Normocephalic, atraumatic, sclera white, EOMI, oral mucosa moist Cardiovascular: RRR, S1S2. No pitting edema Pulmonary: CTA bilaterally without rhonchi, rales, expiratory wheezes. No dyspnea Abdominal: Soft, nondistended, NTTP Neurological: Alert, answering questions appropriately, cranial nerves intact, no focal findings Extremities: No gross joint deformity or swelling. AROMI. Neurovascularly intact Skin: Warm, dry. Const: Vital Signs, click to edit/add: Vital Signs - 24 hr 08/26/23 16:00 08/26/23 16:00 08/26/23 16:18 Temperature 97.6 F Pulse Rate 97 Pulse Rate [Right Pulse Oximeter] 100 100 Respiratory Rate 18 18 Blood Pressure [Le ft Arm] 105/67 Pulse Oximetry 98 Oxygen Delivery Me thod Room Air 08/26/23 21:30 08/26/23 23:00 08/26/23 23:00 Temperature 98.4 F Pulse Rate 97 Pulse Rate [Right Pulse Oximeter] 97 96 Respiratory Rate 16 16 Blood Pressure [Le ft Arm] 110/66 Pulse Oximetry 95 Oxygen Delivery Hi thod Room Air 08/27/23 03:00 08/27/23 07:00 08/27/23 08:30 Temperature 98.2 F Pulse Rate 99 Pulse Rate [Right Pulse Oximeter] 96 101 H Respiratory Rate 16 18 Blood Pressure [Le ft Arm] 115/70 Pulse Oximetry 94 Oxygen Delivery Hi thod Room Air 08/27/23 08:37 08/27/23 12:15 Temperature 98.6 F 97.7 F Pulse Rate Pulse Rate [Right Pulse Oximeter] 101 H 89 Respiratory Rate 18 18 Blood Pressure [Le ft Arm] 115/70 121/71 Pulse Oximetry 96 97 Oxygen Delivery Hi thod Room Air Room Air Labs Labs: Laboratory Results - last 24 hr 08/25/23 08/25/23 08/25/23 06:00 06:34 07:02 WBC RBC Hgb Hct MCV MCH MCHC RDW Coeff of Les Plt Count Neut % (Auto) Lymph % (Auto) Cloud % (Auto) Eos % (Auto) Baso % (Auto) Neut # (Auto) Lymph # (Auto) Cloud # (Auto) Eos # (Auto) Baso # (Auto) Abs Immat Gran (auto) Imm/Tot Granulo (auto) Diff Slide Review VBG pH VBG pCO2 VBG pO2 VBG HCO3 Sodium Potassium Chloride Carbon Dioxide Anion Gap BUN Creatinine Estimated Creat Clear Estimated GFR Glucose Calcium Ionized Calcium Brea Magnesium C-Reactive Protein Cortisol 13.4 Cortisol 30 Minute 16.5 Cortisol 60 Minute 17.9 Hepatitis A IgM Ab Hep Bs Antigen Hep B Core IgM Ab Hep C Ab Index (AUSTYN) Hep C Ab Interp AUSTYN Hepatitis Interpret 08/26/23 08/27/23 06:15 05:50 WBC 11.57 H RBC 3.53 L Hgb 9.0 L Hct 28.2 L MCV 80 MCH 26 MCHC 32 RDW Coeff of Les 17.3 H Plt Count 286 Neut % (Auto) 23.7 L Lymph % (Auto) 68.8 H Cloud % (Auto) 5.5 Eos % (Auto) 0.6 Baso % (Auto) 0.3 Neut # (Auto) 2.70 Lymph # (Auto) 8.00 H Cloud # (Auto) 0.60 Eos # (Auto) 0.10 Baso # (Auto) 0.00 Abs Immat Gran (auto) 0.10 Imm/Tot Granulo (auto) 1.1 Diff Slide Review Acceptable Review VBG pH 7.399 VBG pCO2 34 L VBG pO2 44.8 VBG HCO3 21 Sodium 132 L Potassium 3.6 Chloride 109 Carbon Dioxide 17 L Anion Gap 6 L BUN 14 Creatinine 1.5 Estimated Creat Clear 55.49 Estimated GFR 51 Glucose 100 Calcium 6.9 L Ionized Calcium Brea 1.07 L Magnesium 2.0 C-Reactive Protein 2.2 H Cortisol Cortisol 30 Minute Cortisol 60 Minute Hepatitis A IgM Ab Negative Hep Bs Antigen Negative Hep B Core IgM Ab Negative Hep C Ab Index (AUSTYN) 0.32 Hep C Ab Interp AUSTYN Negative Hepatitis Interpret See Note
[2023-08-28 12:56] LABS: Lyme ELISA Reflex 0.28 IV (<=0.90)
[2023-08-28 13:00] VITALS: BP 96/66; PULSE 101; RESP 18; TEMP 36.7; O2SAT 94
[2023-08-28 15:00] VITALS: PULSE 100; RESP 18
[2023-08-28 17:09] VITALS: BP 118/72; PULSE 100; RESP 18; TEMP 37.1; O2SAT 98
--- NOTE | 2023-08-28 17:30 | PC.NURSE ---
Nursing Care Hours: [id number] Pt this shift up walking mcelroy x1. No c/o pain. VSS. DC'd tele and IV for discharge. Went over paper work with pt and . Answered all questions and concerns. Reassured pt spouse that she can call nurses station this weekend if there are any concerns. Pt instructed to call on Wednesday to schedule follow appointment and to make sure to get in as soon as possible. Wheeled out to vehicle in stable condition.
[2023-08-29 03:25] LABS: Adrenocorticotropic Hormone 6.4 pg/mL (7.2-63.3)
== END 2023-08-28 17:12 | disposition home or self-care (01) | DRG 393 ==
LOC: ED 12:50 → MEDSURG 13:42
PROVIDERS: Family Medicine; Admitting Provider Family Medicine; Emergency Provider Family Medicine; PCP Family Medicine; Visit Provider Family Medicine
DX: K91.850 Pouchitis (principal); I50.21 Acute systolic (congestive) heart failure; N17.0 Acute kidney failure with tubular necrosis; K94.11 Enterostomy hemorrhage; K63.2 Fistula of intestine; E87.1 Hypo-osmolality and hyponatremia; N17.9 Acute kidney failure, unspecified; E27.40 Unspecified adrenocortical insufficiency; K63.3 Ulcer of intestine; K29.80 Duodenitis without bleeding; K20.90 Esophagitis, unspecified without bleeding; R50.9 Fever, unspecified; I44.7 Left bundle-branch block, unspecified; R07.9 Chest pain, unspecified; R63.4 Abnormal weight loss; Z68.28 Body mass index [BMI] 28.0-28.9, adult; R53.1 Weakness; R63.0 Anorexia; E83.51 Hypocalcemia; Z90.49 Acquired absence of other specified parts of digestive tract; K25.9 Gastric ulcer, unspecified as acute or chronic, without hemorrhage or perforation
CPT/HCPCS: 00813; 36415; 43239; 70450; 71046; 71260; 74177; 74183; 76705; 76775; 80048; 80069; 80074; 80076; 81001; 82024; 82330; 82533; 82803; 83540; 83550; 83605; 83690; 83735; 83880; 84100; 84145; 84295; 84439; 84443; 84484; 85025; 85610; 85730; 86140; 86480; 86592; 86618; 86703; 87040; 87045; 87046; 87081; 87086; 87177; 87209; 87338; 87427; 87493; 87505; 87631; 88305; 88342; 93306; 93308; 94761; 99285; G0103; A9270; A9575; C9113; J0613; J0834; J2405; J2543; J2704; J3370; J3490; J7030; Q9957; Q9967

== ENCOUNTER 2025-07-16 14:18 | Outpatient (CLI) | payer MEDICARE, BC, SELFPAY | END 2025-07-16 14:19 | disposition home or self-care (01) | PROVIDERS: PCP Internal Medicine; Visit Provider Internal Medicine | DX: I25.10 Atherosclerotic heart disease of native coronary artery without angina pectoris (principal); Z12.5 Encounter for screening for malignant neoplasm of prostate; Z86.2 Personal history of diseases of the blood and blood-forming organs and certain disorders involving the immune mechanism | CPT/HCPCS: 80048; 80061; G0103 ==